=== PATIENT | male | born 1940 | race Caucasian/White ===

== ENCOUNTER 2017-08-27 12:42 | Outpatient (RCR) | payer MEDICARE ==
[2017-06-04 15:44] VITALS: BP 117/75
[2017-06-04 16:46] LABS: PLATELET COUNT, AUTOMATED 393 K/uL (150-450)
--- NOTE | 2017-06-05 11:58 | RADIOLOGY IMAGING REPORT ---
FACILITY: [facility] - [place] PATIENT NAME: Dean Spears : 1940 MR: [id number] V: [id number] EXAM DATE: ORDERING PHYSICIAN: NAMAN KAUR TECHNOLOGIST: Location: [facility] [place] Patient: Dean Spears : 1940 Visit/Account:[id number] Date of Sevice: 06/05/2017 CHEST/AB/PELV W/CONTRAST HISTORY: Pancreatic cancer, Whipple procedure 05/14/2017 ADDITIONAL HISTORY: None. TECHNIQUE: Following administration of IV contrast axial images acquired through the chest abdomen a nd pelvis during the portal venous phase. Coronal and sagittal reformatting was also performed. Dose Lowering Technique One of the following dose optimization techniques was utilized in the performance of this exam: Autom ated exposure control; adjustment of the mA and/or kV according to the patient's size; or use of an i terative reconstruction technique. Specific details can be referenced in the facility's radiology C T exam operational policy. CONTRAST: 75 mL Isovue-[id number] COMPARISON: May 07, 2017 FINDINGS: CHEST: Lungs/Pleura: There is a 4 mm noncalcified nodule in the lateral inferior left upper lobe best seen on image 62 of series 3. Just lateral is a 3 mm noncalcified nodule and just inferiorly there is a 3 mm calcified nodule best seen on image 65. Mediastinum/lymph nodes: Negative. Heart/vessels: There are moderate coronary artery vascular calcifications and moderate calcification s at the aortic arch Bones/soft tissues: There Is a gentle S-shaped scoliosis of the thoracolumbar spine. There are mild spondylotic changes. No aggressive appearing bone lesions are seen ABDOMEN AND PELVIS: Hepatobiliary: There is diffuse hepatic steatosis . There is been a cholecystectomy. Previously n oted biliary ductal dilatation has resolved. Spleen: Negative. Pancreas: There are postsurgical changes from a Whipple procedure. The visualized body and tail the pancreas appears severely atrophic Adrenals: Negative. Kidneys ureters and bladder : Small subcentimeter hypodensity upper pole the right kidney appears sta ble may represent a cyst although is too small to characterize by CT Genitalia: Mild enlargement of the prostate gland impinging upon the floor the urinary bladder GI: There is a surgical anastomosis in the distal sigmoid colon. Moderate amount of fecal material again seen throughout colon which can be seen with constipation. There are postsurgical changes from a Whipple procedure. The gastrojejunal anastomosis appears extre roxi narrowed and is best seen on axial image 131 of series 2. The stomach is very distended with fl uid and particulate material. The second portion duodenum appears thickened as do several proximal j ejunal loops a portion of disconnected tubing is present in the third portion of the duodenum Vessels/spaces/nodes: Moderate vascular calcifications again seen in the abdomen and pelvis. Collat eral vessels surround the stomach and additional collateral vessels are identified in the right upper abdomen anteriorly. Appear to be several small filling defects in the mid to distal branches of the mesenteric vein. Multiple small retroperitoneal lymph nodes are again noted Bones/soft tissues: No aggressive appearing bone lesions are seen Additional findings: None pertinent. IMPRESSION: There are postsurgical changes from a Whipple procedure as described above. The gastrojejunal anasto mosis appears extremely narrowed as described above. The stomach is very distended with fluid and pa rticulate material. There is wall thickening in the second portion duodenum and several proximal jej unal loops which may represent edema. Collateral vessels are seen about the stomach and in the anterior right upper abdomen. There appear to be several small filling defects likely representing thrombi in the mid to distal bra nches of the mesenteric vein Diffuse hepatic steatosis. There are three pulmonary nodules in the left upper lobe measurin up to 4 mm. One of them appears c alcified with two adjacent noncalcified nodules which could represent granulomatous process. Small retroperitoneal lymph nodes appear stableReport Dictated By: Yazmin Newman MD at 06/05/2017 11:31 AM Report E-Signed By: Yazmin Newman MD at 06/05/2017 11:54 AM WSN:[id number]
--- NOTE | 2017-06-06 15:04 | ONCOLOGY FOLLOW UP NOTE ---
EVENT DATE: June 04, 2017 REASON FOR CONSULTATION Pancreatic adenocarcinoma. CHIEF COMPLAINT Fatigue, weight loss, bilateral hip pain. 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 Dean underwent Whipple procedure on May 14, 2017. He reports that the surgery itself went well, all things considered. Before his surgery, he had experienced quite a bit of weight loss, and at this point, it seems that his nutrition has picked up to the point where he can eat just about anything that he wants to, as along as he eats slowly. He reports no fever. He denies significant abdominal pain and nausea. He has had some issues with constipation, but he has been able to control this at home. He has not had any loose stools, melena, or hematochezia. He denies urinary symptoms. He reports that he is starting to get back on his feet in terms of activity level, as he does tend to be active at baseline. He had been visited in the hospital by Dr. Thompson, and she had made recommendations for him to follow up here in [place] and consider adjuvant therapy if deemed appropriate. REVIEW OF SYSTEMS Otherwise negative, and all systems were reviewed. ONCOLOGY HISTORY Stage IIB pancreatic adenocarcinoma. a. Initial presentation with several months of progressive weight loss, fatigue, and change in stool color. He was noted by his PCP to have scleral icterus. Labs were drawn, revealing elevated bilirubin. CT scan at that time showed concern for a pancreatic mass. He was then referred to Dr. Moody for surgical management. b. May 09, 2017: CT of the abdomen and pelvis revealed 2.7 cm poorly defined mid pancreatic head mass, marked dilatation of bile ducts and main pancreatic duct; no CT evidence of vascular encasement or metastatic disease. c. May 09, 2017: Patient undergoes ERCP, sphincterotomy, and bilateral stent placement. Bile duct biopsy performed at that time showed no evidence of malignancy. d. May 10, 2017: CA 19-9 = 445. e. May 10, 2017: CT chest shows calcified granuloma in lingula, as well as an adjacent small cluster of micronodular densities up to 5 mm, felt to be inflammatory. There was no definitive evidence of metastatic disease. f. May 14, 2017: Patient undergoes Whipple procedure and port placement. 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 Perineural invasion was present, but no lymphovascular invasion was noted. Five of 37 lymph nodes were positive for metastatic disease. g. May 02, 2017: Patient is noted to have elevated white blood cell count , and abnormal liver function tests. PAST MEDICAL HISTORY 1. Benign prostatic hyperplasia. 2. Hypertension. PAST SURGICAL HISTORY 1. Whipple procedure, as above. 2. ERCP with stent placement, as above. 3. History of colon surgery. 4. History of eye surgery. 5. History of wisdom tooth extraction. SOCIAL HISTORY The patient is a never smoker. He rarely drinks alcohol. There is no history of illicit drug use. FAMILY HISTORY Noncontributory. VITAL SIGNS Temperature: Patient is afebrile. Blood pressure 117/75, heart rate is 72, respirations 16, oxygen saturation is 96% on room air. Weight is 59.2 kg. PHYSICAL EXAMINATION GENERAL: Patient is alert and oriented times three, in no apparent distress sitting in the exam room chair. He is quite interactive and pleasant. He appears somewhat tired, but nontoxic. His clothes are fitting loosely. HEENT: Exam reveals modestly icteric sclerae. NEUROLOGIC: Exam is grossly nonfocal, and his gait is normal. EXTREMITIES: Exam reveals thin extremities. No clubbing, no cyanosis. SKIN: Exam reveals no concerning rash or lesion. He is not obviously jaundiced , but his skin is somewhat pale. LABORATORY STUDIES [facility]. IMAGING AND PATHOLOGY Please see history of present illness. ASSESSMENT AND PLAN Resected stage IIB pancreatic adenocarcinoma. I had a very good visit with the patient today. We spent time reviewing his oncologic history, as is noted above. Symptomatically, he seems to be doing remarkably well at this point. His appetite has picked up, and he has been able to eat pretty much anything he wants, as long as his pace of eating is slow. Pain is well controlled at this point. He reports that he really does not want anything to do with opioid pain medications, either now or in the future. We spent time discussing the natural history of pancreatic adenocarcinoma. He understands that this is a very aggressive type of cancer, and risk of recurrence is quite high. His surgical margins were negative, but he did have several lymph nodes (five of 37) positive for pancreatic adenocarcinoma. He does intend to receive adjuvant chemotherapy. I do think that adjuvant gemcitabine would be appropriate for him when the time comes. However, he has some short-term issues that need to be addressed before chemotherapy can be considered. I have reviewed his situation with Dr. Moody in Surgery, as he was kind enough to call me prior to my visit with the patient today. There are concerns at this point for an elevated white count, as well as abnormal liver function tests. I have recommended to the patient that he go for an urgent CT scan of the chest, abdomen and pelvis to evaluate these findings further. As discussed, I will be back in touch with Dr. Moody once these results are available. The patient is currently afebrile, and feeling remarkably well. I am not convinced at this point that he has a threatening infection, but I have asked him to call with any fevers. We also discussed the importance of increasing physical activity, as well as seeing a builder beam. He is open-minded to both of these ideas. I would prefer that Dean have short term followup here in the clinic, hopefully in the next week, to be sure that his clinical situation has not deteriorated. The patient had several further questions for me today, I believe I answered all of these questions to his satisfaction. I spent a total of one hour of total care time with the patient today, and 55 minutes of this was spent in direct counseling and coordination of care. BOUCHRA
[2017-06-09 10:37] VITALS: BP 120/75
--- NOTE | 2017-06-09 13:02 | ONC Progress Note - NP.Halsey ---
Patient History Date of Service Jun 09, 2017 Reason For Visit/HPI Dean is a 76-year-old male who has followed with Dr. 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 Patient is seen in the clinic today to review CT scan completed on 06/05/2017. Copy of the scan has been forwarded to Dr. Maya. Patient denies any fever or chills , nausea or vomiting, he is eating much better, several small meals a day. He feels that he is getting stronger. He does report that he continues to have acid reflux and burping. He believes that this is led to his insomnia so he currently is sleeping upright in a chair and avoiding meals 2 hours before bedtime and reports that this is significantly helped. Patient is also on a PPI which she takes in the morning which also has helped his symptoms. Labs were also reviewed today from previous, I requested to have labs redrawn to better monitor his liver function and patient reported that he would do those next week but did not want them drawn today. 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 Alcohol History He denies abuse Smoking Status: Never Smoker Medications and Allergies Active Scripts Finasteride (FINASTERIDE) 5 Mg Tablet, 1 TAB PO QDAY, #90 TAB Prov:PRASHANT PEÑA MD 09/27/14 Reported Medications Pantoprazole Sodium (PANTOPRAZOLE SODIUM) 40 Mg Tablet.dr, 40 DAILY, MG 0 Refills 06/09/17 Multivitamin (MULTI VITAMIN DAILY) 1 Each Tablet, 1 EACH PO 06/04/17 Ergocalciferol (Vitamin D2) (VITAMIN D2) 400 Unit Tablet, 1 TAB PO QDAY 09/09/14 Discontinued Scripts Fluticasone Prop 50 Mcg Ns (FLONASE 50 MCG NS) 16 Gm Henderson.susp, 2 SPRAYS NS QDAY, #1 BOT 3 Refills Prov:JAMEEL KEYES MD 12/12/16 Allergies: Coded Allergies: No Known Drug Allergies (Verified , 07/19/08) Review of System/Physical Exam Review of Systems All Systems Reviewed/Normal: Yes, Except as Noted Constitutional: Positive for Appetite/Weight Change (this is improved, he has several small meals a day. He does get full fast) Gastrointestinal: Heart Burn (currently on Protonix and avoiding meals prior to bedtime along with sitting in a chair to sleep has significantly helped) Physical Exam Vital Signs Temperature: Pulse: 71 BP Systolic: 120 BP Diastolic: 75 Respiratory Rate: 16 O2 SAT: 97 O2 Delivery: Height (inches) Weight lb: Weight oz: Weight Kg (Rex): Pain: 0 ECOG Score: 1 General: Stable, Not Well Developed (he is very thin although appears well developed ) Psychiatric: Mood appears normal, Affect appears normal Diagnostic Studies Diagnostic Studies Laboratory Labs reviewed with patient today Laboratory Tests 06/04/17 16:40 Laboratory Tests 06/04/17 16:40: White Blood Count 9.3, Red Blood Count 3.89, Hemoglobin 12.6, Hematocrit 37.1, Mean Corpuscular Volume 95.3, Mean Corpuscular Hemoglobin 32.2, Mean Corpuscular Hemoglobin Concent 33.8, Red Cell Distribution Width 16.0, Platelet Count 393, Mean Platelet Volume 9.1, Neutrophils (%) (Auto) 85.7, Lymphocytes (% ) (Auto) 8.0, Monocytes (%) (Auto) 5.3, Eosinophils (%) (Auto) 0.5, Basophils (% ) (Auto) 0.5, Nucleated RBC Relative Count (auto) 0.0, Neutrophils # (Auto) 8.0 , Lymphocytes # (Auto) 0.7, Monocytes # (Auto) 0.5, Eosinophils # (Auto) 0.0, Basophils # (Auto) 0.0, Nucleated RBC Absolute Count (auto) 0.00, Sodium Level 133, Potassium Level 3.7, Chloride Level 100, Carbon Dioxide Level 25, Blood Urea Nitrogen 13, Creatinine 0.60, Glomerular Filtration Rate Calc > 60.0, Random Glucose 108, Calcium Level 8.1, Total Bilirubin 1.7, Aspartate Amino Transf (AST/SGOT) 80, Alanine Aminotransferase (ALT/SGPT) 126, Alkaline Phosphatase 779, Total Protein 5.6, Albumin 2.8 Assessment and Plan Assessment & Plan Resected stage IIB pancreatic adenocarcinoma. CT chest abdomen and pelvis reviewed with patient today. CT shows postsurgical changes from Whipple procedure, anastomosis appears extremely narrowed, stomach was very distended with fluid and particulate material area and there is wall thickening in the 2nd portion of the duodenum possibly representing edema. There are 3 pulmonary nodules in the left upper lobe measuring up to 4 mm, one calcified 2 noncalcified. We will continue to monitor these. There is no evidence of metastatic disease in other areas. Labs reviewed with patient on 06/04/2017. AST ALT and bilirubin are elevated. I encouraged patient to have labs redrawn today for further evaluation, however he said that he had difficulty with needles and that he would rather draw labs next week prior to his follow-up visit with Dr. Maya. I agreed to this plan of care. Dr. Maya has reviewed the CT scan. Patient will continue on PPI, elevation of the chair to decrease gastric reflux. Insomnia has improved due to this. Patient will continue to try to increase foods and gain weight. We did discuss chemotherapy with single agent Gemzar. Patient will need a port access. Overall he is feeling fairly well. 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 Patient will follow with Dr. Maya next week with CBC CMP drawn prior and to discuss plan of care. I personally spent a total of 20 minutes. Of that 20 minutes was counseling/ coordination of patient's care. See my note above for details. Copies to: JAMEEL KEYES MD, NANCY J BUMPER OPERATOR-BC, ONC Jun 09, 2017 13:02
[2017-06-16 10:10] LABS: PLATELET COUNT, AUTOMATED 425 K/uL (150-450)
[2017-06-18 08:10] VITALS: BP 119/73
--- NOTE | 2017-06-23 09:26 | ONC Progress Note - NP.Halsey ---
Patient History Date of Service Jun 23, 2017 Reason For Visit/HPI Rosalee is a 76-year-old male who has followed with Dr. 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 Patient is seen today for education regarding chemotherapy with gemcitabine given on day 1, 8, and 15 every 28 days 6 cycles. Patient is scheduled to start later this week. His is with him today. Patient is seen with physical therapy and psychotherapist social worker. Oncology History Stage IIB pancreatic adenocarcinoma. a. Initial presentation with several months of progressive weight loss, fatigue, and change in stool color. He was noted by his PCP to have scleral icterus. Labs were drawn, revealing elevated bilirubin. CT scan at that time showed concern for a pancreatic mass. He was then referred to Dr. Moody for surgical management. b. May 09, 2017: CT of the abdomen and pelvis revealed 2.7 cm poorly defined mid pancreatic head mass, marked dilatation of bile ducts and main pancreatic duct; no CT evidence of vascular encasement or metastatic disease. c. May 09, 2017: Patient undergoes ERCP, sphincterotomy, and bilateral stent placement. Bile duct biopsy performed at that time showed no evidence of malignancy. d. May 10, 2017: CA 19-9 = 445. e. May 10, 2017: CT chest shows calcified granuloma in lingula, as well as an adjacent small cluster of micronodular densities up to 5 mm, felt to be inflammatory. There was no definitive evidence of metastatic disease. f. May 14, 2017: Patient undergoes Whipple procedure and port placement. 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 Perineural invasion was present, but no lymphovascular invasion was noted. Five of 37 lymph nodes were positive for metastatic disease. g. May 02, 2017: Patient is noted to have elevated white blood cell count , and abnormal liver function tests. h. Education for gemcitabine to start this week with a regimen administered on day 1, 8, and 15 every 28 days 6 cycles. 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 Alcohol History He denies abuse Smoking Status: Never Smoker Medications and Allergies Active Scripts Ondansetron (ZOFRAN ODT) 8 Mg Tab.rapdis, 8 MG PO Q8H, #30 TAB 1 Refill Prov:GREGORY LEW FORESTRY LABORER-BC, ONC 06/23/17 Docusate Sodium (DOCUSATE SODIUM) 100 Mg Tablet, 1 TAB PO BID, #30 TAB 0 Refills Prov:ROSALEE WONG MD 06/20/17 Oxycodone Hcl/Acetaminophen (OXYCODONE-ACETAMINOPHEN 5-325) 1 Each Tablet, 1-2 TAB PO Q4H Y for PAIN, #30 TAB 0 Refills Prov:ROSALEE WONG MD 06/20/17 Finasteride (FINASTERIDE) 5 Mg Tablet, 1 TAB PO QDAY, #90 TAB Prov:PRASHANT PEÑA MD 09/27/14 Reported Medications Calcium Carbonate (CALCIUM) 600 Mg Tablet, 600 MG PO QDAY 06/18/17 Pantoprazole Sodium (PANTOPRAZOLE SODIUM) 40 Mg Tablet.dr, 40 DAILY, MG 0 Refills 06/09/17 Multivitamin (MULTI VITAMIN DAILY) 1 Each Tablet, 1 EACH PO 06/04/17 Ergocalciferol (Vitamin D2) (VITAMIN D2) 400 Unit Tablet, 2 TAB PO QDAY 09/09/14 Allergies: Coded Allergies: No Known Drug Allergies (Verified , 07/19/08) Review of System/Physical Exam Review of Systems All Systems Reviewed/Normal: Yes, Except as Noted Constitutional: Positive for Appetite/Weight Change (Weight loss noted but patient reports he is eating well and tolerating all foods. ) Gastrointestinal: Diarrhea (occasionally and stool is often pasty in color) Hematologic: Positive for Fatigue (mild) Musculoskeletal: Positive for Muscle Pain, Positive for Joint Pain, Positive for Bone Pain (hips, thigh and back- age related arthiritis) Physical Exam Vital Signs Temperature: 97.2 Pulse: 68 BP Systolic: 119 BP Diastolic: 73 Respiratory Rate: 16 O2 SAT: 96 O2 Delivery: Height (inches) Weight lb: Weight oz: Weight Kg (Rex): Pain: 0 ECOG Score: 1 General: Stable, Well Developed, Not Well Nourished (Patient is very thin and appears malnurished.), Not In Acute Distress Psychiatric: Mood appears normal, Affect appears normal Chemo Education Chemotherapy Education: Patient is seen today for education regarding chemotherapy with gemcitabine for his pancreatic cancer. The treatment schedule and associated appointments were discussed and reviewed. A print out will be given to the patient. The intent for treatment is unknown at this time. Consent for treatment was completed prior to receiving treatment. Mechanism of action and associated side effects of Gemcitabine and premedications were discussed. The patient is at increased risk for infection related to bone marrow suppression with chemotherapy. Signs and symptoms of infection were reviewed with recommendation of calling the clinic if fever, chills or a temperature of 100.5 or greater is experienced. Regular monitoring of blood work will be completed. The patient is at increased risk of nausea and vomiting related to chemotherapy. Home antiemetics were reviewed with a schedule of when to take them. Script (s) for Zofran was sent to his pharmacy with explanation to take every 8 hours as needed for nausea post chemotherapy. Increased bowel movements or diarrhea may occur. The use of Imodium was reviewed and encouraged to have on hand. Dehydration from decreased intake, nausea or diarrhea could also occur. Side effects of dehydration were reviewed and hydration will be given as needed. Self-care strategies to minimize any symptoms from treatment were taught and written material was given for further review at home. The strategies included: dietary modifications for nausea, diarrhea, fatigue and/or mouth sores, exercise and resting for fatigue, hydration for dehydration, and skin care for dry skin reactions. In addition, safety measures for IV chemotherapy to prevent teratogenic side effects to others was reviewed in detail to include good hand washing, double flushing, in the 72 hour period post treatment. Patient is not sexually active at this time due to prostate hypertrophy. His is with him today. Diagnostic Studies Diagnostic Studies Laboratory Laboratory Tests 06/16/17 10:00 Laboratory Tests 06/16/17 10:00: White Blood Count 7.5, Red Blood Count 4.21, Hemoglobin 13.8, Hematocrit 40.6, Mean Corpuscular Volume 96.5, Mean Corpuscular Hemoglobin 32.7, Mean Corpuscular Hemoglobin Concent 34.0, Red Cell Distribution Width 17.3, Platelet Count 425, Mean Platelet Volume 8.7, Neutrophils (%) (Auto) 82.0, Lymphocytes (% ) (Auto) 9.5, Monocytes (%) (Auto) 7.0, Eosinophils (%) (Auto) 0.5, Basophils (% ) (Auto) 1.0, Nucleated RBC Relative Count (auto) 0.0, Neutrophils # (Auto) 6.1 , Lymphocytes # (Auto) 0.7, Monocytes # (Auto) 0.5, Eosinophils # (Auto) 0.0, Basophils # (Auto) 0.1, Nucleated RBC Absolute Count (auto) 0.00, Sodium Level 137, Potassium Level 4.0, Chloride Level 101, Carbon Dioxide Level 30, Blood Urea Nitrogen 12, Creatinine 0.60, Glomerular Filtration Rate Calc > 60.0, Random Glucose 86, Calcium Level 8.4, Total Bilirubin 0.9, Aspartate Amino Transf (AST/SGOT) 45, Alanine Aminotransferase (ALT/SGPT) 75, Alkaline Phosphatase 355, Total Protein 6.0, Albumin 2.9 Assessment and Plan Assessment & Plan Resected stage IIB pancreatic adenocarcinoma. CT chest abdomen and pelvis completed as baseline. CT shows postsurgical changes from Whipple procedure, anastomosis appears extremely narrowed, stomach was very distended with fluid and particulate material area and there is wall thickening in the 2nd portion of the duodenum possibly representing edema. There are 3 pulmonary nodules in the left upper lobe measuring up to 4 mm, one calcified 2 noncalcified. We will continue to monitor these. There is no evidence of metastatic disease in other areas. Labs reviewed with patient on 06/04/2017. AST ALT and bilirubin were elevated. Education and consent signed today prior to treatment. Patient was assessed by PT. He is feeling well and able to increase calories in his diet. He is not gaining weight but will continue to try. Patient will start chemotherapy with gemcitabine given on day 1, 8, and 15 every 28 days 6 cycles. Education was completed and a consent was signed. Zofran was sent to pharmacy today. I personally spent a total of 40 minutes. Of that 40 minutes was counseling/ coordination of patient's care. See my note above for details. GREGORY LEW FORESTRY LABORER-BC, ONC Jun 23, 2017 09:26
[2017-06-25 11:32] VITALS: BP 134/74
[2017-06-25] MEDS: DEXAMETHASONE SOD PHOS 10MG/ML IVP PRN (11:52)
[2017-06-25] MEDS: NS(*) 0.9% 100 ML BAG 100 ML IVPB PRN (12:00)
[2017-06-25 13:31] VITALS: BP 132/68
--- NOTE | 2017-06-27 09:39 | ONCOLOGY FOLLOW UP NOTE ---
EVENT DATE: June 18, 2017 REASON FOR FOLLOWUP Pancreatic adenocarcinoma, stage II, status post Whipple. CHIEF COMPLAINT Insomnia. INTERIM HISTORY Dean is here with his today. He reports that he has been doing fairly well , all things considered, since our last visit. He reports no pain or fever. He has had no significant nausea, and no change in bowel habits. He has noticed no yellowing of the eyes or skin. He has an excellent appetite, but he continues to eat a somewhat modified diet, with small, fairly frequent portions. He reports that his activity level has been pretty good, but his is quite concerned that he is getting minimal exercise at home. He reports no shortness of breath, productive cough, or chest pain. His energy level has improved somewhat. He states that he is quite enthusiastic to receive chemotherapy if this is indeed going to be possible. Since our last visit, he did have a CT scan performed to evaluate for abnormal liver function tests status post Whipple. REVIEW OF SYSTEMS Otherwise negative with the exception of insomnia. ONCOLOGY HISTORY Stage IIB pancreatic adenocarcinoma. a. Initial presentation with several months of progressive weight loss, fatigue, and change in stool color. He was noted by his PCP to have scleral icterus. Labs were drawn, revealing elevated bilirubin. CT scan at that time showed concern for a pancreatic mass. He was then referred to Dr. Moody for surgical management. b. May 09, 2017: CT of the abdomen and pelvis revealed 2.7 cm poorly defined mid pancreatic head mass, marked dilatation of bile ducts and main pancreatic duct; no CT evidence of vascular encasement or metastatic disease. c. May 09, 2017: Patient undergoes ERCP, sphincterotomy, and bilateral stent placement. Bile duct biopsy performed at that time showed no evidence of malignancy. d. May 10, 2017: CA 19-9 = 445. e. May 10, 2017: CT chest shows calcified granuloma in lingula, as well as an adjacent small cluster of micronodular densities up to 5 mm, felt to be inflammatory. There was no definitive evidence of metastatic disease. f. May 14, 2017: Patient undergoes Whipple procedure and port placement. 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 Perineural invasion was present, but no lymphovascular invasion was noted. Five of 37 lymph nodes were positive for metastatic disease. g. May 02, 2017: Patient is noted to have elevated white blood cell count , and abnormal liver function tests. h. June 05, 2017: CT chest, abdomen and pelvis: Post surgical changes from Whipple procedure. Anastomosis is narrowed; stomach is very distended with fluid and particulate material. There is some edema of proximal small bowel loops. There appear to be several small filling defects likely representing thrombi in the mid to distal branches of the mesenteric vein. Diffuse hepatic steatosis is present. Three pulmonary nodules in the left upper lobe measuring up to 4 mm. One of these is calcified, two adjacent noncalcified nodules could represent granulomatous disease. PAST MEDICAL HISTORY 1. Benign prostatic hyperplasia. 2. Hypertension. PAST SURGICAL HISTORY 1. Whipple procedure, as above. 2. ERCP with stent placement, as above. 3. History of colon surgery. 4. History of eye surgery. 5. History of wisdom tooth extraction. SOCIAL HISTORY The patient is a never smoker. He rarely drinks alcohol. There is no history of illicit drug use. FAMILY HISTORY Noncontributory. CURRENT MEDICATIONS 1. Protonix. 2. Multivitamin. 3. Finasteride. 4. Vitamin D2. ALLERGIES No known drug allergies. VITAL SIGNS Temperature 97.2, blood pressure 119/73, heart rate is 68, respirations 16, oxygen saturation is 96% on room air. Weight is 56.2 kg. PHYSICAL EXAMINATION GENERAL: Patient is alert and oriented times three, in no apparent distress, sitting in the exam room chair. He is quite interactive, talkative, and pleasant. HEENT: Exam reveals anicteric sclerae. NEUROLOGIC: Exam is grossly nonfocal and his gait is somewhat slow, but stable. SKIN: Exam reveals no concerning rash or lesion. EXTREMITIES: Exam reveals no edema, clubbing or cyanosis. LAB[facility] IMAGING Please see oncology history. ASSESSMENT AND PLAN Stage IIB pancreatic adenocarcinoma, status post Whipple. Dean continues to do quite well symptomatically in the postoperative setting. He has no concerning abdominal symptoms, no fever, he is eating pretty well, and his LFTs are improving. We spent time reviewing the findings of his recent CT scan, as well as his labs. We moved on to discuss the merits of consideration for adjuvant chemotherapy, taking into account comorbidities and his age. We discussed gemcitabine monotherapy for six months as a standard option for him to reduce risk of recurrence and hopefully prolong overall survival. He does understand his risk of recurrence of pancreatic cancer is substantial. We discussed common side effects and risks with gemcitabine. He is quite interested, and he would like to sit down for chemotherapy education as soon as possible. This will be arranged. We will arrange for him to receive gemcitabine at a dose of 1000 mg/m2 to be given on days 1, 8, and 15 of 28-day cycles. He will have close followup here as he initiates adjuvant therapy. A recheck of his liver function tests will occur per his chemotherapy protocol. I will plan to see him back for followup during my [place] [facility] [place] The patient and his had several further questions for me today, and I believe I answered all of their questions to their satisfaction. I spent a total of 30 minutes of time face to face with the patient today, and 25 minutes of this was spent in direct counseling, coordination of care. BOUCHRA
[2017-07-02 10:45] VITALS: BP 130/78
[2017-07-02] MEDS: NS(*) 0.9% 500 ML BAG 500 ML IV PRN (10:45)
[2017-07-02 11:16] LABS: PLATELET COUNT, AUTOMATED 221 K/uL (150-450)
[2017-07-02] MEDS: DEXAMETHASONE SOD PHOS 10MG/ML IVP PRN (11:39)
[2017-07-02] MEDS: HEPARIN FLSH (PORT) 500 UN/5ML IVP PRN (13:00)
[2017-07-02 13:10] VITALS: BP 134/76
[2017-07-09 11:34] VITALS: BP 116/71
[2017-07-09] MEDS: DEXAMETHASONE SOD PHOS 10MG/ML IVP PRN (11:57)
[2017-07-09] MEDS: NS(*) 0.9% 500 ML BAG 500 ML IV PRN (11:58)
[2017-07-09 13:30] VITALS: BP 120/72
[2017-07-09 13:34] VITALS: BP 130/86
[2017-07-09] MEDS: HEPARIN FLSH (PORT) 500 UN/5ML IVP PRN (15:57)
--- NOTE | 2017-07-12 05:47 | ONCOLOGY FOLLOW UP NOTE ---
EVENT DATE: July 02, 2017 REASON FOR FOLLOWUP Stage II pancreatic adenocarcinoma, status post Whipple. CHIEF COMPLAINT Loose stools. INTERIM HISTORY Dean reports that he is feeling pretty good today for the most part. Since our last visit, he has had ongoing issues with loose stools. He reports that he has had multiple bowel movements a day, and that he has had to get up at night to have bowel movements as well. He has had several "accidents." He has noticed no blood in his stools, but they are light colored. His stools are not watery, just soft. He reports no fever. He has had no nausea. His appetite is actually quite good, and he is able to eat whatever he wants. He reports no fever. He has had no shortness of breath, chest pain or cough. He has had no new urinary symptoms. REVIEW OF SYSTEMS Otherwise negative, and his sleep patterns have improved. ONCOLOGY HISTORY Stage IIB pancreatic adenocarcinoma. a. Initial presentation with several months of progressive weight loss, fatigue, and change in stool color. He was noted by his PCP to have scleral icterus. Labs were drawn, revealing elevated bilirubin. CT scan at that time showed concern for a pancreatic mass. He was then referred to Dr. Moody for surgical management. b. May 09, 2017: CT of the abdomen and pelvis revealed 2.7 cm poorly defined mid pancreatic head mass, marked dilatation of bile ducts and main pancreatic duct; no CT evidence of vascular encasement or metastatic disease. c. May 09, 2017: Patient undergoes ERCP, sphincterotomy, and bilateral stent placement. Bile duct biopsy performed at that time showed no evidence of malignancy. d. May 10, 2017: CA 19-9 = 445. e. May 10, 2017: CT chest shows calcified granuloma in lingula, as well as an adjacent small cluster of micronodular densities up to 5 mm, felt to be inflammatory. There was no definitive evidence of metastatic disease. f. May 14, 2017: Patient undergoes Whipple procedure and port placement. 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 Perineural invasion was present, but no lymphovascular invasion was noted. Five of 37 lymph nodes were positive for metastatic disease. g. May 02, 2017: Patient is noted to have elevated white blood cell count , and abnormal liver function tests. h. June 05, 2017: CT chest, abdomen and pelvis: Post surgical changes from Whipple procedure. Anastomosis is narrowed; stomach is very distended with fluid and particulate material. There is some edema of proximal small bowel loops. There appear to be several small filling defects likely representing thrombi in the mid to distal branches of the mesenteric vein. Diffuse hepatic steatosis is present. Three pulmonary nodules in the left upper lobe measuring up to 4 mm. One of these is calcified, two adjacent noncalcified nodules could represent granulomatous disease. i. June 2017: Initiation of adjuvant gemcitabine chemotherapy PAST MEDICAL HISTORY 1. Benign prostatic hyperplasia. 2. Hypertension. PAST SURGICAL HISTORY 1. Whipple procedure, as above. 2. ERCP with stent placement, as above. 3. History of colon surgery. 4. History of eye surgery. 5. History of wisdom tooth extraction. SOCIAL HISTORY The patient is a never smoker. He rarely drinks alcohol. There is no history of illicit drug use. FAMILY HISTORY Noncontributory. CURRENT MEDICATIONS 1. Protonix. 2. Multivitamin. 3. Finasteride. 4. Vitamin D2. ALLERGIES No known drug allergies. VITAL SIGNS Temperature is 97.3, blood pressure 130/70, heart rate is 61, respirations 18, oxygen saturation is 91% on room air. PHYSICAL EXAMINATION GENERAL: Patient is alert and oriented times three, in no apparent distress, sitting in the infusion chair. He is interactive and quite pleasant. He is very thin. HEENT: Exam reveals anicteric sclerae. NEUROLOGIC: Exam is grossly nonfocal. EXTREMITIES: Exam reveals some edema of the bilateral lower extremities, but no clubbing or cyanosis. SKIN: Exam reveals some scattered erythematous macules over the lower extremities. LABORATORY STUDIES Reviewed per the [facility] record. Today's labs are currently pending. IMAGING None today. ASSESSMENT AND PLAN Pancreatic adenocarcinoma. Dean has initiated adjuvant gemcitabine chemotherapy , and he seems to be tolerating it quite well to date. He has had minimal toxicity. He is having loose stools, however, and this has become quite problematic. This is new over the past few weeks, and I do think he needs to sit down with the PharmD today to discuss pancreatic enzymes. We discussed the use of these enzymes in detail. He has no infectious symptoms. I would like for him to follow up in about a week with Rea Fischer, nurse practitioner, here in the clinic to see how things are coming along with his bowel habits. We will continue with gemzar chemotherapy per protocol, pending the results of today labs. MTDD
[2017-07-16 09:29] VITALS: BP 132/65
[2017-07-16 09:47] LABS: PLATELET COUNT, AUTOMATED 242 K/uL (150-450)
[2017-07-23 10:48] VITALS: BP 121/79
[2017-07-23] MEDS: HEPARIN FLSH (PORT) 500 UN/5ML IVP PRN (10:50)
[2017-07-23] MEDS: NS(*) 0.9% 500 ML BAG 500 ML IV PRN (10:51)
[2017-07-23 11:00] LABS: PLATELET COUNT, AUTOMATED 613 K/uL (150-450)
[2017-07-23] MEDS: DEXAMETHASONE SOD PHOS 10MG/ML IVP PRN (11:49)
--- NOTE | 2017-07-23 13:44 | ONC Progress Note - NP.Halsey ---
Patient History Date of Service Jul 23, 2017 Reason For Visit/HPI Rosalee is a 76-year-old male who has followed with Dr. 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 He is scheduled to receive gemcitabine today which is given on day 1, 8, and 15 every 28 days 6 cycles. He reports that he tolerated his 1st treatment without difficulty. He continues to use pancreatic enzymes reports that his bowel movements are brown and normal. If he does not use the pancreatic enzymes his bowel movement is more virgen colored and pasty. Patient previously had lower extremity edema and shares that after his 1st cycle this is resolved. He did wear compression stockings which provided support. He feels that he had gained approximately 10 pounds of water weight and now has lost 10 pounds. He is not on any diuretic. Oncology History Stage IIB pancreatic adenocarcinoma. a. Initial presentation with several months of progressive weight loss, fatigue, and change in stool color. He was noted by his PCP to have scleral icterus. Labs were drawn, revealing elevated bilirubin. CT scan at that time showed concern for a pancreatic mass. He was then referred to Dr. Moody for surgical management. b. May 09, 2017: CT of the abdomen and pelvis revealed 2.7 cm poorly defined mid pancreatic head mass, marked dilatation of bile ducts and main pancreatic duct; no CT evidence of vascular encasement or metastatic disease. c. May 09, 2017: Patient undergoes ERCP, sphincterotomy, and bilateral stent placement. Bile duct biopsy performed at that time showed no evidence of malignancy. d. May 10, 2017: CA 19-9 = 445. e. May 10, 2017: CT chest shows calcified granuloma in lingula, as well as an adjacent small cluster of micronodular densities up to 5 mm, felt to be inflammatory. There was no definitive evidence of metastatic disease. f. May 14, 2017: Patient undergoes Whipple procedure and port placement. 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 Perineural invasion was present, but no lymphovascular invasion was noted. Five of 37 lymph nodes were positive for metastatic disease. g. May 02, 2017: Patient is noted to have elevated white blood cell count , and abnormal liver function tests. h. Gemcitabine regimen administered on day 1, 8, and 15 every 28 days 6 cycles started on 07-16-17. 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 Alcohol History He denies abuse Smoking History: No Smoking Status: Never Smoker Medications and Allergies Active Scripts Ondansetron (ZOFRAN ODT) 8 Mg Tab.rapdis, 8 MG PO Q8H, #30 TAB 1 Refill Prov:GREGORY LEW [employer] OPERATIONS SUPERINTENDENT-BC, ONC 06/23/17 Docusate Sodium (DOCUSATE SODIUM) 100 Mg Tablet, 1 TAB PO BID, #30 TAB 0 Refills Prov:ROSALEE WONG MD 06/20/17 Oxycodone Hcl/Acetaminophen (OXYCODONE-ACETAMINOPHEN 5-325) 1 Each Tablet, 1-2 TAB PO Q4H Y for PAIN, #30 TAB 0 Refills Prov:ROSALEE WOGN MD 06/20/17 Finasteride (FINASTERIDE) 5 Mg Tablet, 1 TAB PO QDAY, #90 TAB Prov:PRASHANT PEÑA MD 09/27/14 Reported Medications Lipase/Protease/Amylase (CREON DR 12,000 UNITS CAPSULE) 1 Each Capsule., 1 EACH PO DIRECTED 07/02/17 Calcium Carbonate (CALCIUM) 600 Mg Tablet, 600 MG PO QDAY 06/18/17 Pantoprazole Sodium (PANTOPRAZOLE SODIUM) 40 Mg Tablet., 40 DAILY, MG 0 Refills 06/09/17 Multivitamin (MULTI VITAMIN DAILY) 1 Each Tablet, 1 EACH PO 06/04/17 Ergocalciferol (Vitamin D2) (VITAMIN D2) 400 Unit Tablet, 2 TAB PO QDAY 09/09/14 Allergies: Coded Allergies: No Known Drug Allergies (Verified , 07/19/08) Review of System/Physical Exam Review of Systems All Systems Reviewed/Normal: Yes, Except as Noted Hematologic: Positive for Fatigue, Positive for Weakness Physical Exam Vital Signs Temperature: 97.0 Pulse: 68 BP Systolic: 121 BP Diastolic: 79 Respiratory Rate: 16 O2 SAT: 95 O2 Delivery: Height (inches) 72.00 Weight lb: 119 Weight oz: Weight Kg (Rex): [id number] Pain: 0 ECOG Score: 1 General: Stable, Well Developed, Well Nourished (patient is very thin), Not In Acute Distress, Other (He reports eating well and using a supplement protein drink) HEENT: No Trauma, No Conjunctivitis, No Icterus, No Oral Thrush Neck: Supple Lungs: Clear to Auscultation Heart: Regular Rate, Regular Rhythm, No Gallops Abdomen: Soft and Nontender, No Hepatosplenomegaly, No Masses Extremities: No Cyanosis, No Clubbing, No Edema Lymphadenopathy: No Cervical Psychiatric: Mood appears normal, Affect appears normal Skin: No Skin Rashes, No Bruising, No Purpura Diagnostic Studies Diagnostic Studies Laboratory white count is elevated, UA was completed today and was negative. Patient denies any fever or chills. Laboratory Tests 07/23/17 10:50 Laboratory Tests 07/16/17 09:30: Neutrophils % (Manual) 66, Band Neutrophils % 1, Lymphocytes % (Manual) 20, Monocytes % (Manual) 9, Eosinophils % (Manual) 0, Basophils % (Manual) 0, Metamyelocytes % 3, Myelocytes % 1, Anisocytosis 1+ 07/23/17 10:50: White Blood Count 13.7, Red Blood Count 4.31, Hemoglobin 13.7, Hematocrit 41.0, Mean Corpuscular Volume 95.2, Mean Corpuscular Hemoglobin 31.7, Mean Corpuscular Hemoglobin Concent 33.3, Red Cell Distribution Width 16.0, Platelet Count 613, Mean Platelet Volume 7.9, Neutrophils (%) (Auto) 86.1, Lymphocytes (% ) (Auto) 4.6, Monocytes (%) (Auto) 8.4, Eosinophils (%) (Auto) 0.4, Basophils (% ) (Auto) 0.5, Nucleated RBC Relative Count (auto) 0.0, Neutrophils # (Auto) 11.8 , Lymphocytes # (Auto) 0.6, Monocytes # (Auto) 1.2, Eosinophils # (Auto) 0.0, Basophils # (Auto) 0.1, Nucleated RBC Absolute Count (auto) 0.00, Peripheral Blood Smear Yes, Sodium Level 136, Potassium Level 4.7, Chloride Level 104, Carbon Dioxide Level 26, Blood Urea Nitrogen 12, Creatinine 0.60, Glomerular Filtration Rate Calc > 60.0, Random Glucose 94, Calcium Level 8.5, Total Bilirubin 0.3, Aspartate Amino Transf (AST/SGOT) 44, Alanine Aminotransferase ( ALT/SGPT) 55, Alkaline Phosphatase 113, Total Protein 6.4, Albumin 3.1 07/23/17 13:15: Assessment and Plan Assessment & Plan Resected stage IIB pancreatic adenocarcinoma. CT chest abdomen and pelvis completed as baseline. CT shows postsurgical changes from Whipple procedure, anastomosis appears extremely narrowed, stomach was very distended with fluid and particulate material area and there is wall thickening in the 2nd portion of the duodenum possibly representing edema. There are 3 pulmonary nodules in the left upper lobe measuring up to 4 mm, one calcified 2 noncalcified. We will continue to monitor these. There is no evidence of metastatic disease in other areas. Previous lower extremity edema has resolved with a 10 pound weight loss thought to be all water weight. Patient is eating well and tolerating treatment without side effects or difficulty. Will receive cycle 1 day 8 today. Patient will follow with provider with each treatment. Elevated white cell count at 13.7, platelet count 613. UA was negative, patient without fever or chills and is completely asymptomatic. We will continue to monitor. I personally spent a total of 20 minutes. Of that 20 minutes was counseling/ coordination of patient's care. See my note above for details. GREGORY LEW [employer] OPER[employer] SUPERINTENDENT-BC, ONC Jul 23, 2017 13:43
[2017-07-30] MEDS: NS(*) 0.9% 100 ML BAG 100 ML IVPB PRN (11:18)
[2017-07-30] MEDS: DEXAMETHASONE SOD PHOS 10MG/ML IVP PRN (11:49)
[2017-07-30 12:21] VITALS: BP 123/78
[2017-07-30] MEDS: HEPARIN FLSH (PORT) 500 UN/5ML IVP PRN (13:02)
--- NOTE | 2017-07-30 21:57 | ONCOLOGY FOLLOW UP NOTE ---
EVENT DATE: July 30, 2017 REASON FOR FOLLOWUP Stage II pancreatic adenocarcinoma, status post Whipple. CHIEF COMPLAINT Fatigue. INTERIM HISTORY Dean reports that for the most part he has been doing pretty well with ongoing adjuvant gemcitabine chemotherapy. He is here to receive cycle two day eight. He reports some ongoing and expected fatigue, but this has been quite tolerable. He is staying quite active. He reports no fever. His appetite is good, and his weight has been stable. He has had much less in the way of loose stools since using his pancreatic enzymes. He has had no shortness of breath, chest pain, productive cough. He reports no new urinary symptoms, but he is up multiple times a night to urinate. REVIEW OF SYSTEMS Otherwise negative, and all systems were reviewed. ONCOLOGY HISTORY Stage IIB pancreatic adenocarcinoma. a. Initial presentation with several months of progressive weight loss, fatigue, and change in stool color. He was noted by his PCP to have scleral icterus. Labs were drawn, revealing elevated bilirubin. CT scan at that time showed concern for a pancreatic mass. He was then referred to Dr. Moody for surgical management. b. May 09, 2017: CT of the abdomen and pelvis revealed 2.7 cm poorly defined mid pancreatic head mass, marked dilatation of bile ducts and main pancreatic duct; no CT evidence of vascular encasement or metastatic disease. c. May 09, 2017: Patient undergoes ERCP, sphincterotomy, and bilateral stent placement. Bile duct biopsy performed at that time showed no evidence of malignancy. d. May 10, 2017: CA 19-9 = 445. e. May 10, 2017: CT chest shows calcified granuloma in lingula, as well as an adjacent small cluster of micronodular densities up to 5 mm, felt to be inflammatory. There was no definitive evidence of metastatic disease. f. May 14, 2017: Patient undergoes Whipple procedure and port placement. 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 Perineural invasion was present, but no lymphovascular invasion was noted. Five of 37 lymph nodes were positive for metastatic disease. g. May 02, 2017: Patient is noted to have elevated white blood cell count , and abnormal liver function tests. h. June 05, 2017: CT chest, abdomen and pelvis: Post surgical changes from Whipple procedure. Anastomosis is narrowed; stomach is very distended with fluid and particulate material. There is some edema of proximal small bowel loops. There appear to be several small filling defects likely representing thrombi in the mid to distal branches of the mesenteric vein. Diffuse hepatic steatosis is present. Three pulmonary nodules in the left upper lobe measuring up to 4 mm. One of these is calcified, two adjacent noncalcified nodules could represent granulomatous disease. i. June 2017: Initiation of adjuvant gemcitabine chemotherapy PAST MEDICAL HISTORY 1. Benign prostatic hyperplasia. 2. Hypertension. PAST SURGICAL HISTORY 1. Whipple procedure, as above. 2. ERCP with stent placement, as above. 3. History of colon surgery. 4. History of eye surgery. 5. History of wisdom tooth extraction. SOCIAL HISTORY The patient is a never smoker. He rarely drinks alcohol. There is no history of illicit drug use. FAMILY HISTORY Noncontributory. CURRENT MEDICATIONS 1. Zofran p.r.n. 2. Docusate p.r.n. 3. Percocet. 4. Finasteride. 5. Pancreatic enzymes. 6. Calcium carbonate. 7. Pantoprazole. 8. Multivitamin. 9. Vitamin D2. ALLERGIES No known drug allergies. VITAL SIGNS Temperature is 98.0, blood pressure 123/78, heart rate is 71, respirations 16, oxygen saturation is 93% on room air. Weight is 57.7 kg. PHYSICAL EXAMINATION GENERAL: Patient is alert and oriented times three, in no apparent distress, sitting in the infusion chair. He is good spirits and quite interactive. He is very thin. HEENT: Exam reveals anicteric sclerae. NEUROLOGIC: Exam is grossly nonfocal and his gait is normal. EXTREMITIES: Exam reveals some edema, clubbing or cyanosis. SKIN: Exam reveals no concerning rash or lesion. LABORATORY STUDIES Reviewed per the [facility] record. ASSESSMENT AND PLAN Stage II pancreatic adenocarcinoma. Dean continues to do remarkably well with adjuvant chemotherapy. His toxicity to date has been quite modest. He is doing better in terms of his bowel habits due to the regular use of pancreatic enzymes. These have been somewhat expensive, however. We will plan for him to move forward with adjuvant gemcitabine per protocol without alteration. He did have questions about some of his medical bills today, and we have forwarded this information to the appropriate parties. I will plan not see him back during my next visit to [facility]. He will have followup with Rea on his next treatment day in one week. MTDD
[2017-08-06 11:19] VITALS: BP 111/77
[2017-08-06 11:38] LABS: PLATELET COUNT, AUTOMATED 169 K/uL (150-450)
[2017-08-06] MEDS: DEXAMETHASONE SOD PHOS 10MG/ML IVP PRN (11:54)
[2017-08-06] MEDS: NS(*) 0.9% 500 ML BAG 500 ML IV PRN (11:54)
[2017-08-06] MEDS: HEPARIN FLSH (PORT) 500 UN/5ML IVP PRN (11:57)
--- NOTE | 2017-08-06 12:40 | ONC Progress Note - NP.Halsey ---
Patient History Date of Service Aug 06, 2017 Reason For Visit/HPI Rosalee is a 76-year-old male who has followed with Dr. 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 He is currently recieiving gemcitabine on days 1, 8, and 15 every 28 days 6 cycles. He will recieve cycle 2 day 15 today. He continues to deny any side effects with treatment. He continues to use pancreatic enzymes reports that his bowel movements are brown and normal. His tumor marker is stable at 23. Problem List (1) Enlarged prostate with lower urinary tract symptoms (LUTS) (2) Adenocarcinoma of pancreas, stage 2 Oncology History Stage IIB pancreatic adenocarcinoma. a. Initial presentation with several months of progressive weight loss, fatigue, and change in stool color. He was noted by his PCP to have scleral icterus. Labs were drawn, revealing elevated bilirubin. CT scan at that time showed concern for a pancreatic mass. He was then referred to Dr. Moody for surgical management. b. May 09, 2017: CT of the abdomen and pelvis revealed 2.7 cm poorly defined mid pancreatic head mass, marked dilatation of bile ducts and main pancreatic duct; no CT evidence of vascular encasement or metastatic disease. c. May 09, 2017: Patient undergoes ERCP, sphincterotomy, and bilateral stent placement. Bile duct biopsy performed at that time showed no evidence of malignancy. d. May 10, 2017: CA 19-9 = 445. e. May 10, 2017: CT chest shows calcified granuloma in lingula, as well as an adjacent small cluster of micronodular densities up to 5 mm, felt to be inflammatory. There was no definitive evidence of metastatic disease. f. May 14, 2017: Patient undergoes Whipple procedure and port placement. 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 Perineural invasion was present, but no lymphovascular invasion was noted. Five of 37 lymph nodes were positive for metastatic disease. g. May 02, 2017: Patient is noted to have elevated white blood cell count , and abnormal liver function tests. h. Gemcitabine regimen administered on day 1, 8, and 15 every 28 days 6 cycles started on 07-16-17. 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 Alcohol History He denies abuse Smoking History: No Smoking Status: Never Smoker Medications and Allergies Active Scripts Ondansetron (ZOFRAN ODT) 8 Mg Tab.rapdis, 8 MG PO Q8H, #30 TAB 1 Refill Prov:GREGORY LEW HABILITATION WORKER-BC, ONC 06/23/17 Docusate Sodium (DOCUSATE SODIUM) 100 Mg Tablet, 1 TAB PO BID, #30 TAB 0 Refills Prov:ROSALEE WONG MD 06/20/17 Oxycodone Hcl/Acetaminophen (OXYCODONE-ACETAMINOPHEN 5-325) 1 Each Tablet, 1-2 TAB PO Q4H Y for PAIN, #30 TAB 0 Refills Prov:ROSALEE WONG MD 06/20/17 Finasteride (FINASTERIDE) 5 Mg Tablet, 1 TAB PO QDAY, #90 TAB Prov:PRASHANT PEÑA MD 09/27/14 Reported Medications Lipase/Protease/Amylase (MIGUEL DICKEY 12,000 UNITS CAPSULE) 1 Each Capsule., 1 EACH PO DIRECTED 07/02/17 Calcium Carbonate (CALCIUM) 600 Mg Tablet, 600 MG PO QDAY 06/18/17 Pantoprazole Sodium (PANTOPRAZOLE SODIUM) 40 Mg Tablet., 40 DAILY, MG 0 Refills 06/09/17 Multivitamin (MULTI VITAMIN DAILY) 1 Each Tablet, 1 EACH PO 06/04/17 Ergocalciferol (Vitamin D2) (VITAMIN D2) 400 Unit Tablet, 2 TAB PO QDAY 09/09/14 Allergies: Coded Allergies: No Known Drug Allergies (Verified , 07/19/08) Review of System/Physical Exam Review of Systems All Systems Reviewed/Normal: Yes, Except as Noted Genitourinary: Positive for Nocturia (10-12 times in a night. He follows with Dr. Lewis and reports that he is on fenasteride for an enlarged prostate. ) Hematologic: Positive for Fatigue Physical Exam Vital Signs Temperature: 97.6 Pulse: 75 BP Systolic: 111 BP Diastolic: 77 Respiratory Rate: 14 O2 SAT: 95 O2 Delivery: Height (inches) 72.00 Weight lb: 119 Weight oz: Weight Kg (Rex): [id number] Pain: 0 ECOG Score: 1 General: Stable, Well Developed, Well Nourished, Not In Acute Distress HEENT: No Conjunctivitis, No Oral Thrush Neck: Supple Lungs: Clear to Auscultation Heart: Regular Rate, Regular Rhythm Abdomen: Soft and Nontender, No Masses Extremities: No Cyanosis, No Clubbing, No Edema Psychiatric: Mood appears normal, Affect appears normal Skin: No Skin Rashes, No Bruising, No Purpura Diagnostic Studies Diagnostic Studies Laboratory Item Value Date Time CA 19-9 Antigen 23 U/mL 07/23/17 1050 CA 19-9 Antigen 21 U/mL 06/25/17 1112 Laboratory Tests 08/06/17 11:30 Laboratory Tests 07/16/17 09:30: Neutrophils % (Manual) 66, Band Neutrophils % 1, Lymphocytes % (Manual) 20, Monocytes % (Manual) 9, Eosinophils % (Manual) 0, Basophils % (Manual) 0, Metamyelocytes % 3, Myelocytes % 1, Anisocytosis 1+ 07/23/17 10:50: Peripheral Blood Smear Yes, CA 19-9 Antigen 23 07/23/17 13:15: Urine Color Yellow, Urine Clarity Clear, Urine pH 7.0, Urine Specific Mcloud 1.012, Urine Protein Negative, Urine Glucose (UA) Negative, Urine Ketones Negative, Urine Blood Negative, Urine Nitrite Negative, Urine Bilirubin Negative , Urine Urobilinogen Negative, Urine Leukocyte Esterase Negative, Urine RBC None , Urine WBC <1, Urine Squamous Epithelial Cells None, Urine Bacteria Negative, Urine Mucus None 08/06/17 11:30: White Blood Count 4.6, Red Blood Count 4.14, Hemoglobin 13.0, Hematocrit 38.8, Mean Corpuscular Volume 93.8, Mean Corpuscular Hemoglobin 31.4, Mean Corpuscular Hemoglobin Concent 33.5, Red Cell Distribution Width 15.7, Platelet Count 169, Mean Platelet Volume 8.1, Neutrophils (%) (Auto) 79.9, Lymphocytes (% ) (Auto) 8.9, Monocytes (%) (Auto) 10.1, Eosinophils (%) (Auto) 0.5, Basophils ( %) (Auto) 0.6, Nucleated RBC Relative Count (auto) 0.1, Neutrophils # (Auto) 3.6 , Lymphocytes # (Auto) 0.4, Monocytes # (Auto) 0.5, Eosinophils # (Auto) 0.0, Basophils # (Auto) 0.0, Nucleated RBC Absolute Count (auto) 0.01, Sodium Level 138, Potassium Level 4.3, Chloride Level 106, Carbon Dioxide Level 25, Blood Urea Nitrogen 13, Creatinine 0.60, Glomerular Filtration Rate Calc > 60.0, Random Glucose 105, Calcium Level 8.2, Total Bilirubin 0.4, Aspartate Amino Transf (AST/SGOT) 29, Alanine Aminotransferase (ALT/SGPT) 46, Alkaline Phosphatase 91, Total Protein 6.1, Albumin 3.1 Assessment and Plan Assessment & Plan Patient is a very pleasant 76 year old gentleman with a history of resected stage IIB pancreatic adenocarcinoma. CT chest abdomen and pelvis completed as baseline. CT shows postsurgical changes from Whipple procedure, anastomosis appears extremely narrowed, stomach was very distended with fluid and particulate material area and there is wall thickening in the 2nd portion of the duodenum possibly representing edema. There are 3 pulmonary nodules in the left upper lobe measuring up to 4 mm, one calcified 2 noncalcified. We will continue to monitor these. There is no evidence of metastatic disease in other areas. Previous lower extremity edema has resolved . Patient is eating well and tolerating treatment without side effects or difficulty. He will receive cycle 2 day 15 of gemcitabine today. Previously elevated white count has normalized. Patient will follow with provider with each treatment. I personally spent a total of 20 minutes. Of that 20 minutes was counseling/ coordination of patient's care. See my note above for details. Copies to: JAMEEL KEYES MD, NANCY J HABILITATION WORKER-BC, ONC Aug 06, 2017 12:40
[2017-08-06 13:02] VITALS: BP 115/85
[2017-08-13 11:32] LABS: PLATELET COUNT, AUTOMATED 208 K/uL (150-450)
[2017-08-20 13:02] VITALS: BP 130/77
[2017-08-20] MEDS: NS(*) 0.9% 500 ML BAG 500 ML IV PRN (13:43)
[2017-08-20] MEDS: DEXAMETHASONE SOD PHOS 10MG/ML IVP PRN (14:09)
[2017-08-20 15:25] VITALS: BP 135/74
[2017-08-20] MEDS: HEPARIN FLSH (PORT) 500 UN/5ML IVP PRN (15:26)
--- NOTE | 2017-08-20 19:16 | ONCOLOGY FOLLOW UP NOTE ---
EVENT DATE: August 20, 2017 REASON FOR FOLLOWUP Stage II pancreatic adenocarcinoma, status post Whipple; ongoing adjuvant gemcitabine chemotherapy. CHIEF COMPLAINT Insomnia. INTERIM HISTORY Dean reports that for the most part he has been feeling about the same since our last visit. He has had some ongoing trouble sleeping, but he attributes most of this to nocturia. He at worst will be up as many as 15 times a night to urinate. On good nights, he is up four to five times. He has no difficulty emptying his bladder, he just has to go frequently. He reports no malodorous urine, fever or back pain. He has had ongoing good experience with pancreatic enzymes, but sometimes he forgets, and he will have loose stools as a result. His appetite tends to be fairly good. He has not been able to put on any weight , however. He reports no significant nausea. He has had some leg swelling, for which he wears compression stockings. REVIEW OF SYSTEMS Otherwise negative, and all systems were reviewed. ONCOLOGY HISTORY Stage IIB pancreatic adenocarcinoma. a. Initial presentation with several months of progressive weight loss, fatigue, and change in stool color. He was noted by his PCP to have scleral icterus. Labs were drawn, revealing elevated bilirubin. CT scan at that time showed concern for a pancreatic mass. He was then referred to Dr. Moody for surgical management. b. May 09, 2017: CT of the abdomen and pelvis revealed 2.7 cm poorly defined mid pancreatic head mass, marked dilatation of bile ducts and main pancreatic duct; no CT evidence of vascular encasement or metastatic disease. c. May 09, 2017: Patient undergoes ERCP, sphincterotomy, and bilateral stent placement. Bile duct biopsy performed at that time showed no evidence of malignancy. d. May 10, 2017: CA 19-9 = 445. e. May 10, 2017: CT chest shows calcified granuloma in lingula, as well as an adjacent small cluster of micronodular densities up to 5 mm, felt to be inflammatory. There was no definitive evidence of metastatic disease. f. May 14, 2017: Patient undergoes Whipple procedure and port placement. 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 Perineural invasion was present, but no lymphovascular invasion was noted. Five of 37 lymph nodes were positive for metastatic disease. g. May 02, 2017: Patient is noted to have elevated white blood cell count , and abnormal liver function tests. h. June 05, 2017: CT chest, abdomen and pelvis: Post surgical changes from Whipple procedure. Anastomosis is narrowed; stomach is very distended with fluid and particulate material. There is some edema of proximal small bowel loops. There appear to be several small filling defects likely representing thrombi in the mid to distal branches of the mesenteric vein. Diffuse hepatic steatosis is present. Three pulmonary nodules in the left upper lobe measuring up to 4 mm. One of these is calcified, two adjacent noncalcified nodules could represent granulomatous disease. i. June 2017: Initiation of adjuvant gemcitabine chemotherapy PAST MEDICAL HISTORY 1. Benign prostatic hyperplasia. 2. Hypertension. PAST SURGICAL HISTORY 1. Whipple procedure, as above. 2. ERCP with stent placement, as above. 3. History of colon surgery. 4. History of eye surgery. 5. History of wisdom tooth extraction. SOCIAL HISTORY The patient is a never smoker. He rarely drinks alcohol. There is no history of illicit drug use. FAMILY HISTORY Noncontributory. CURRENT MEDICATIONS 1. Creon. 2. Zofran p.r.n. 3. Docusate p.r.n. 4. Percocet p.r.n. 5. Calcium supplement. 6. Pantoprazole. 7. Multivitamin. 8. Finasteride. 9. Vitamin D2. VITAL SIGNS Temperature is 96.6, blood pressure 130/77, heart rate is 72, respirations 14, oxygen saturation is 91% on room air. PHYSICAL EXAMINATION GENERAL: Patient is alert and oriented times three, in no apparent distress, sitting in the infusion chair. He is interactive and quite pleasant. He is very thin. HEENT: Exam reveals anicteric sclerae. No significant oropharyngeal lesions. NEUROLOGIC: Exam is grossly nonfocal. His gait is normal. EXTREMITIES: Exam reveals some edema of the bilateral lower extremities, but he is wearing compression stockings. SKIN: Exam reveals dry skin only. No concerning rash or lesion. LABORATORY STUDIES Reviewed per the [facility] medical record. IMAGING None today. ASSESSMENT AND PLAN Stage II pancreatic adenocarcinoma, resected. Dean continues to do remarkably well with adjuvant gemcitabine chemotherapy. He is here today to begin his third of six planned cycles. We spent time reviewing his current symptoms, including urinary frequency, sleep disruption, dry skin, loose stools when he misses his pancreatic enzymes, and some ongoing lower extremity swelling for which he uses compression stockings. Dean has no concerning signs or symptoms to suggest recurrence of his pancreatic cancer today. We reviewed his labs. These are unremarkable with the exception of a moderate thrombocytosis, possibly reactive in nature or due to emerging iron deficiency. We will check his iron studies with his next blood draw. Dean is not particularly interested in any kind of a sleep aid at this point. He does see a urologist in [place], and I have offered to make a phone call to see if we cannot get him in for a visit. He would like to give this some thought. We will have him continue with chemotherapy per protocol. I will plan to see him back in [place]'s [place] [facility] [place] B[place]
[~2017-08-27] VITALS: Ht 182.9 cm; Wt 58.2 kg
[~2017-08-27 12:42] MED LIST: ALTEPLASE RECOMB 2 MG VIAL IVP PRN; ASPI-757 PO; ASPI1TAB35 PO; CALC600T63 PO; DEXTROSE 5%(*) 100 ML BAG 100 ML IVPB PRN; DIPH0.5D12 IM; DOCU100T13 PO; ERGO400T10 PO; EZET1TAB55 PO; FINA5TAB67 PO; FISH OIL1 CAP PO; FLUT16SP19 NS; GEMCITABINE IVPB ONE; HYDR12.556 PO; IOPAMIDOL 76% 75 ML INFUS BTL 75 ML ONE; LIDOCAINE/SOD BICARB 8.4% SYR ID PRN; LIPA1CAP61 PO; MULT-1335 PO; MULT1TAB64 PO; NS 0.9% IVPB ONE; OMEG-11 PO; ONDA8TAB94 PO; OXYC-373 PO; PANT40TA65; PNEU0.5D3 IM; SIMV-49 PO; WATER STERILE 10 ML VIAL IVP PRN; [UNRECOGNIZED DRUG - OTHER] IVPB ONE
[2017-08-27 12:51] VITALS: BP 144/81
[2017-08-27] MEDS: NS(*) 0.9% 500 ML BAG 500 ML IV PRN (13:20)
--- NOTE | 2017-08-27 13:57 | ONC Progress Note - NP.Halsey ---
Patient History Date of Service Aug 27, 2017 Reason For Visit/HPI Rosalee is a 76-year-old male who has followed with Dr. 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 He is currently receiving gemcitabine on days 1, 8, and 15 every 28 days 6 cycles and is scheduled for cycle 3 day 8 today. Patient denies any side effects from the chemotherapy such as nausea or vomiting. Patient reports that he has occasional episodes of diarrhea directly related to his pancreatic enzymes. If he does not take enough he will have loose stools and occasional episodes of incontinence. Patient reports that his insomnia is somewhat improved. He believes that it is directly related to increased nocturia and if he minimizes his movement at rest it does not trigger his need to urinate. Patient tried to call Dr. Lewis-urologist, over in [place] and was told that he no longer is and practice. Patient is planning to see his primary care provider this week and will discuss his urinary symptoms and history of enlarged prostate with his provider. Patient continues to wear compression stockings and has good management of lower extremity bilateral edema. He has not been able to increase weight but has been able to maintain it. Patient did have iron studies completed today. Oncology History Stage IIB pancreatic adenocarcinoma. a. Initial presentation with several months of progressive weight loss, fatigue, and change in stool color. He was noted by his PCP to have scleral icterus. Labs were drawn, revealing elevated bilirubin. CT scan at that time showed concern for a pancreatic mass. He was then referred to Dr. Moody for surgical management. b. May 09, 2017: CT of the abdomen and pelvis revealed 2.7 cm poorly defined mid pancreatic head mass, marked dilatation of bile ducts and main pancreatic duct; no CT evidence of vascular encasement or metastatic disease. c. May 09, 2017: Patient undergoes ERCP, sphincterotomy, and bilateral stent placement. Bile duct biopsy performed at that time showed no evidence of malignancy. d. May 10, 2017: CA 19-9 = 445. e. May 10, 2017: CT chest shows calcified granuloma in lingula, as well as an adjacent small cluster of micronodular densities up to 5 mm, felt to be inflammatory. There was no definitive evidence of metastatic disease. f. May 14, 2017: Patient undergoes Whipple procedure and port placement. 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 Perineural invasion was present, but no lymphovascular invasion was noted. Five of 37 lymph nodes were positive for metastatic disease. g. May 02, 2017: Patient is noted to have elevated white blood cell count , and abnormal liver function tests h. June 05, 2017: CT chest, abdomen and pelvis: Post surgical changes from Whipple procedure. Anastomosis is narrowed; stomach is very distended with fluid and particulate material. There is some edema of proximal small bowel loops. There appear to be several small filling defects likely representing thrombi in the mid to distal branches of the mesenteric vein. Diffuse hepatic steatosis is present. Three pulmonary nodules in the left upper lobe measuring up to 4 mm. One of these is calcified, two adjacent noncalcified nodules could represent granulomatous disease. i. 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 Alcohol History He denies abuse Smoking History: No Smoking Status: Never Smoker Medications and Allergies Active Scripts Ondansetron (ZOFRAN ODT) 8 Mg Tab.rapdis, 8 MG PO Q8H, #30 TAB 1 Refill Prov:GREGORY LEW TECH[employer]ICAL SOLUTIONS DIRECTOR-BC, ONC 06/23/17 Docusate Sodium (DOCUSATE SODIUM) 100 Mg Tablet, 1 TAB PO BID, #30 TAB 0 Refills Prov:ROSALEE WONG MD 06/20/17 Oxycodone Hcl/Acetaminophen (OXYCODONE-ACETAMINOPHEN 5-325) 1 Each Tablet, 1-2 TAB PO Q4H Y for PAIN, #30 TAB 0 Refills Prov:ROSALEE WONG MD 06/20/17 Finasteride (FINASTERIDE) 5 Mg Tablet, 1 TAB PO QDAY, #90 TAB Prov:PRASHANT PEÑA MD 09/27/14 Reported Medications Lipase/Protease/Amylase (CREON DR 12,000 UNITS CAPSULE) 1 Each Capsule., 1 EACH PO DIRECTED 07/02/17 Calcium Carbonate (CALCIUM) 600 Mg Tablet, 600 MG PO QDAY 06/18/17 Pantoprazole Sodium (PANTOPRAZOLE SODIUM) 40 Mg Tablet., 40 DAILY, MG 0 Refills 06/09/17 Multivitamin (MULTI VITAMIN DAILY) 1 Each Tablet, 1 EACH PO 06/04/17 Ergocalciferol (Vitamin D2) (VITAMIN D2) 400 Unit Tablet, 2 TAB PO QDAY 09/09/14 Allergies: Coded Allergies: No Known Drug Allergies (Verified , 07/19/08) Review of System/Physical Exam Review of Systems All Systems Reviewed/Normal: Yes, Except as Noted Gastrointestinal: Diarrhea Genitourinary: Positive for Nocturia Endocrine: Positive for Other (patient is currently on pancreatic enzymes) Hematologic: Positive for Fatigue Physical Exam Vital Signs Temperature: 97.7 Pulse: 69 BP Systolic: 144 BP Diastolic: 81 Respiratory Rate: 16 O2 SAT: 92 O2 Delivery: Height (inches) 72.00 Weight lb: 0 Weight oz: Weight Kg (Rex): [id number] Pain: 0 ECOG Score: 1 General: Stable, Well Developed, Not Well Nourished (patient is very thin and frail), Not In Acute Distress HEENT: No Trauma, No Conjunctivitis, No Icterus, No Mucositis Neck: Supple Lungs: Clear to Auscultation Heart: Regular Rate, Regular Rhythm Abdomen: Soft and Nontender, No Hepatosplenomegaly, No Masses, Other (bowel sounds are active) Extremities: No Cyanosis, No Clubbing, No Edema (patient is wearing bilateral lower extremity compression stockings with no edema) Lymphadenopathy: No Cervical Psychiatric: Mood appears normal, Affect appears normal Skin: No Skin Rashes, No Bruising, No Purpura Diagnostic Studies Diagnostic Studies Laboratory Item Value Date Time Iron Level 35 ug/dl L 08/27/17 1300 Total Iron Binding Capacity 274 ug/dl 08/27/17 1300 Percent Iron Saturation 12.8 % 08/27/17 1300 Ferritin 142 ng/ml 08/27/17 1300 Laboratory Tests 08/27/17 13:00 Laboratory Tests 07/16/17 09:30: Metamyelocytes % 3, Myelocytes % 1, Anisocytosis 1+ 07/23/17 10:50: Peripheral Blood Smear Yes 07/23/17 13:15: Urine Color Yellow, Urine Clarity Clear, Urine pH 7.0, Urine Specific [place] 1.012, Urine Protein Negative, Urine Glucose (UA) Negative, Urine Ketones Negative, Urine Blood Negative, Urine Nitrite Negative, Urine Bilirubin Negative , Urine Urobilinogen Negative, Urine Leukocyte Esterase Negative, Urine RBC None , Urine WBC <1, Urine Squamous Epithelial Cells None, Urine Bacteria Negative, Urine Mucus None 08/13/17 11:00: Red Blood Count 4.27, Mean Corpuscular Volume 93.2, Mean Corpuscular Hemoglobin 31.2, Mean Corpuscular Hemoglobin Concent 33.5, Red Cell Distribution Width 16.0 , Mean Platelet Volume 7.7, Monocytes (%) (Auto) , Eosinophils (%) (Auto) , Basophils (%) (Auto) , Nucleated RBC Relative Count (auto) , Monocytes # (Auto) , Eosinophils # (Auto) , Basophils # (Auto) , Nucleated RBC Absolute Count (auto ) , Neutrophils % (Manual) 68, Band Neutrophils % 1, Lymphocytes % (Manual) 24, Monocytes % (Manual) 7, Eosinophils % (Manual) 0, Basophils % (Manual) 0, Platelet Estimate Normal, Polychromasia 1+, Stomatocytes 1+ 08/20/17 13:20: CA 19-9 Antigen 21 08/27/17 13:00: White Blood Count 4.9, Hemoglobin 12.9, Hematocrit 38.7, Platelet Count 380, Neutrophils (%) (Auto) 67.6, Lymphocytes (%) (Auto) 17.8, Neutrophils # (Auto) 3.3, Lymphocytes # (Auto) 0.9, Sodium Level 137, Potassium Level 4.0, Chloride Level 103, Carbon Dioxide Level 24, Blood Urea Nitrogen 15, Creatinine 0.60, Glomerular Filtration Rate Calc > 60.0, Random Glucose 87, Calcium Level 8.3, Iron Level 35, Total Iron Binding Capacity 274, Percent Iron Saturation 12.8, Total Bilirubin 0.5, Aspartate Amino Transf (AST/SGOT) 53, Alanine Aminotransferase (ALT/SGPT) 57, Alkaline Phosphatase 95, Total Protein 6.1, Albumin 3.1 Assessment and Plan Assessment & Plan Patient is a very pleasant 76 year old gentleman with a history of resected stage IIB pancreatic adenocarcinoma. CT chest abdomen and pelvis completed as baseline. CT shows postsurgical changes from Whipple procedure, anastomosis appears extremely narrowed, stomach was very distended with fluid and particulate material area and there is wall thickening in the 2nd portion of the duodenum possibly representing edema. There are 3 pulmonary nodules in the left upper lobe measuring up to 4 mm, one calcified 2 noncalcified. We will continue to monitor these. There was no evidence of metastatic disease in other areas. He is currently on gemcitabine day 1, 8, 15 on a 28 day cycle scheduled to complete 6 full cycles. No changes in plan of care today. Patient will complete cycle 3 day 8 today. Iron studies completed show a ferritin level of 142, iron of 35. MCV remains in the normal limit, hemoglobin is within normal limits. Patient is scheduled to follow with primary care provider this Friday and we'll review symptoms of nocturia and history of prostatitis. Patient will follow with a provider with each treatment. I personally spent a total of 20 minutes. Of that 20 minutes was counseling/ coordination of patient's care. See my note above for details. Copies to: JAMEEL KEYES MD, NANCY J TECHNICAL SOLUTIONS DIRECTOR-BC, ONC Aug 27, 2017 13:57
[2017-08-27] MEDS: DEXAMETHASONE SOD PHOS 10MG/ML IVP PRN (14:03)
[2017-08-27] MEDS ORDERED: GEMCITABINE IVPB ONE (14:35)
[2017-08-27] MEDS ORDERED: [UNRECOGNIZED DRUG - OTHER] IVPB ONE (14:35)
[2017-08-27] MEDS: HEPARIN FLSH (PORT) 500 UN/5ML IVP PRN (15:15)
[2017-08-29] MEDS ORDERED: MIRT-22 PO (11:43)
== END 2017-09-01 ==
LOC: ONC 12:42
PROVIDERS: ATTEND Internal Medicine Medical Oncology
DX: Z51.11 Encounter for antineoplastic chemotherapy (principal); C25.9 Malignant neoplasm of pancreas, unspecified; K21.9 Gastro-esophageal reflux disease without esophagitis; Z79.899 Other long term (current) drug therapy; R53.83 Other fatigue; R19.7 Diarrhea, unspecified; N40.1 Benign prostatic hyperplasia with lower urinary tract symptoms; R35.1 Nocturia
CPT/HCPCS: 36415; 71260; 74177; 81001; 82728; 83540; 83550; 85025; 85027; 86301; 96367; 96375; 96413; G0463; J1100; J1642; J7040; J7050; J9201; Q9967; 82040; 82247; 82310; 82374; 82435; 82565; 82947; 84075; 84132; 84155; 84295; 84450; 84460; 84520; 99212

== ENCOUNTER 2017-09-03 14:00 | Outpatient (RCR) | payer MEDICARE ==
--- NOTE | 2017-06-24 12:40 | PT INITIAL EVALUATION ---
MEDICAL DIAGNOSIS: Pancreatic Adenocarcinoma TREATMENT DIAGNOSIS: Pancreatic Adenocarcinoma, Generalized Weakness DATE OF ONSET: 06/23/17 SUBJECTIVE: Dean is a 76-year-old male who has followed with Dr. 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 Patient is seen today for education regarding chemotherapy with gemcitabine given on day 1, 8, and 15 every 28 days 6 cycles. Patient is scheduled to start later this week. His is with him today. Patient is seen with nurse practitioner and social work administrator present. At this time pt reports occasional back pain with sleeping, but otherwise his biggest concern is a recent loss in muscle mass and body weight. Back pain is not present at this time, but comes on when he lays on his back and is in his low back and hips. Pt reports that he is getting a new mattress to help with pain. Pt also reports that heat reduces pain. REHAB PROBLEM LIST: Increased Pain Decreased Strength Decreased Endurance Decreased Function Decreased ADL's Decreased Mobility Decreased Gait PREVIOUS MEDICAL HISTORY: See EMR OCCUPATION: Retired OBJECTIVE: Posture: Decreaed spinal curvature throughout. ROM: WFL Strength: MMT B LE: Hip: flexion: B 4/5, Ext: B 5/5, Abd/Add: 5/5. Knee: L 4/5, R 5/5. Ankle: PF/DF: B 5/5 Special Tests: ECOG Performance Status: Grade 3 FACT-G (Initial Eval 06/23/17): PWB: 24/28, SWB: 25.7/28, EWB: 21/, FWB: 16/ , Total Score: 86.7/108 Other Objective Findings: Pt reports mild difficulty with buttoning buttons and picking up small objects at this time. ASSESSMENT: Pt shows signs and symptoms consistent with generalized weakness with recent pancreatic adenocarcinoma diagnosis. Physical therapy is indicated to address the above deficits related to function in ADL's as well as to manage pt maintenance of current condition with ongoing oncological intervention. Short Term Goals In 3 MO pt will increase ECOG performance status to grade 2 indicating improved function as well as to decrease side-effects from ongoing oncological intervention. In 6 MO pt will maintain FACT-G score of >80/108 indicating maintenance of functional status with ADL's. In 6 MO pt will maintain strength of >4/5 in all LE MMT for improved function with ADL's. Patient's Goals Gain muscle mass and weight, maintain function. PLAN: Patient to be seen for Manual Therapy/STM/MET Strengthening/condition Ice/Heat Range of Motion Spinal Stabilization Ultrasound Stretching Iontophoresis Neuromuscular Re-ed Closed Chain Program Electrical Stim Posture/Body mechanics Gait Trg/Balance Trg Biofeedback Home Exercise Program Mech./Manual Traction Therapeutic Activities Pelvic Floor 1x/MO for 6 MO If you have any questions, comments, or concerns about this report or plan, please contact me at . Thank you, Taylor Piedra, PT, DPT, CLT MTDD
--- NOTE | 2017-07-30 17:02 | PT PLAN OF CARE ---
Physician: SITA Pitt Patient is being seen: 2x/MO Therapist: Taylor Piedra, PT, DPT, CLT Medical Diagnosis: Pancreatic Adenocarcinoma Treatment Diagnosis: Pancreatic Adenocarcinoma, Generalized Weakness Date of Onset: 06/23/17 Date of Initial Evaluation: 06/23/17 Date patient was last seen: 07/30/17 Number of treatments: 2 Number of cancellations/No shows: 0 INTERVENTIONS: Manual Therapy/STM/MET Strengthening/condition Ice/Heat Range of Motion Spinal Stabilization Ultrasound Stretching Iontophoresis Neuromuscular Re-ed Closed Chain Program Electrical Stim Posture/Body mechanics Gait Trg/Balance Trg Biofeedback Home Exercise Program Mech./Manual Traction Therapeutic Activities Pelvic Floor GOALS: In 3 MO pt will increase ECOG performance status to grade 2 indicating improved function as well as to decrease side-effects from ongoing oncological intervention. In Progress In 6 MO pt will maintain FACT-G score of >80/108 indicating maintenance of functional status with ADL's. In Progress In 6 MO pt will maintain strength of >4/5 in all LE MMT for improved function with ADL's. In Progress PATIENT'S GOAL: Gain muscle mass and weight, maintain function. Status of Patient's Goals: In Progress Patient Compliance: Fair Prognosis: Fair Reasons for continuing therapy: Pt shows B LE distal extremity edema with pitting evident. At the time swelling is managed by compression stockings which pt was educated on donning and doffing and night time alternatives. Edema to be monitored at next visit for any signs in change and for possible manual drainage. Pt activity level remains stable at grade 3 performance status, however pt reports that he will try to increase activity level including walking to manage edema as well. Pt has no back pain at this time. Posture: Decreased spinal curvature throughout. ROM: WFL Strength: MMT B LE: Hip: flexion: B 4/5, Ext: B 5/5, Abd/Add: 5/5. Knee: L 4/5, R 5/5. Ankle: PF/DF: B 5/5 Special Tests: ECOG Performance Status: Grade 3 FACT-G (Initial Eval 06/23/17): PWB: , SWB: 25.7/28, EWB: , FWB: , Total Score: 86.7/108 Edema: B Distal LE pitting edema evident. If you have any questions or concerns, please feel free to contact me at [phone]. Thank you, Taylor Piedra, PT, DPT, CLT MTDD
--- NOTE | 2017-08-20 15:12 | PT PLAN OF CARE ---
Physician: SITA Pitt Patient is being seen: 1x/Week Therapist: Taylor Piedra, PT, DPT, CLT Medical Diagnosis: Pancreatic Adenocarcinoma Treatment Diagnosis: Pancreatic Adenocarcinoma, Generalized Weakness Date of Onset: 06/23/17 Date of Initial Evaluation: 06/23/17 Date patient was last seen: 08/20/17 Number of treatments: 3 Number of cancellations/No shows: 0 INTERVENTIONS: Manual Therapy/STM/MET Strengthening/condition Ice/Heat Range of Motion Spinal Stabilization Ultrasound Stretching Iontophoresis Neuromuscular Re-ed Closed Chain Program Electrical Stim Posture/Body mechanics Gait Trg/Balance Trg Biofeedback Home Exercise Program Mech./Manual Traction Therapeutic Activities Pelvic Floor GOALS: In 3 MO pt will increase ECOG performance status to grade 2 indicating improved function as well as to decrease side-effects from ongoing oncological intervention. In Progress In 6 MO pt will maintain FACT-G score of >80/108 indicating maintenance of functional status with ADL's. In Progress In 6 MO pt will maintain strength of >4/5 in all LE MMT for improved function with ADL's. In Progress PATIENT'S GOAL: Gain muscle mass and weight, maintain function. Status of Patient's Goals: In Progress Patient Compliance: Fair Prognosis: Fair Reasons for continuing therapy: Dean shows only slight decline in functional status secondary to fatigue and decreased activity, as well as insomnia. Pt showed good response to strengthening in supplemental melatonin as well as herbal tea to help with sleeping was discussed with Oncology MD and pt to help with sleep. More frequent PT is indicated for this patient to maintain functional strength and endurance as well as increase muscle mass. Posture: Decreased spinal curvature throughout. ROM: WFL Strength: MMT B LE: Hip: flexion: B 4/5, Ext: B 5/5, Abd/Add: 5/5. Knee: L 4/5, R 5/5. Ankle: PF/DF: B 5/5 Special Tests: ECOG Performance Status: Grade 3 FACT-G (Initial Eval 06/23/17): PWB: 24, SWB: 25.7, EWB: , FWB: , Total Score: 86.7/108 FACT-G 08/20/17: PWB: 24/, SWB: /, EWB: , FWB: 18/28, Total Score: 83 /108 Edema: B Distal LE pitting edema evident. If you have any questions or concerns, please feel free to contact me at . Thank you, Taylor Piedra, PT, DPT, CLT MTDD
[~2017-09-03 14:00] MED LIST changes: -ALTEPLASE RECOMB 2 MG VIAL IVP PRN; -DEXTROSE 5%(*) 100 ML BAG 100 ML IVPB PRN; -GEMCITABINE IVPB ONE; -IOPAMIDOL 76% 75 ML INFUS BTL 75 ML ONE; -LIDOCAINE/SOD BICARB 8.4% SYR ID PRN; +MIRT-22 PO; -NS 0.9% IVPB ONE; -WATER STERILE 10 ML VIAL IVP PRN; -[UNRECOGNIZED DRUG - OTHER] IVPB ONE
== END 2017-09-21 ==
LOC: PT 14:00
PROVIDERS: ATTEND Nurse Practitioner Family
DX: C25.9 Malignant neoplasm of pancreas, unspecified (principal); M62.81 Muscle weakness (generalized)
CPT/HCPCS: 97162

== ENCOUNTER 2017-11-26 12:40 | Outpatient (RCR) | payer MEDICARE ==
[2017-09-03] MEDS: DEXAMETHASONE SOD PHOS 10MG/ML IVP PRN (13:58)
[2017-09-03 15:01] VITALS: BP 126/80
[2017-09-03] MEDS: HEPARIN FLSH (PORT) 500 UN/5ML IVP PRN (15:04)
[2017-09-03] MEDS: NS(*) 0.9% 500 ML BAG 500 ML IV PRN (15:04)
--- NOTE | 2017-09-03 22:45 | ONCOLOGY FOLLOW UP NOTE ---
EVENT DATE: September 03, 2017 REASON FOR FOLLOWUP Stage II pancreatic adenocarcinoma, status post Whipple; ongoing adjuvant gemcitabine chemotherapy. CHIEF COMPLAINT Insomnia, fatigue, urinary frequency. INTERIM HISTORY Dean is here for cycle three day 15 gemcitabine infusion. He reports that things having going about the same since his last visit. He continues to be plagued by insomnia, as well as urinary frequency. He has had ongoing fatigue as a result. He reports no new pain. He denies fever. His appetite has been pretty good, and he has maintained his weight. He reports no changes in bowel habits. He is trying to stay as active as possible. He recently visited with his primary care provider, and mirtazapine was diagnosed to see if this would help with his insomnia. He has filled the prescription, but he has not tried it yet. REVIEW OF SYSTEMS Otherwise negative, and all systems were reviewed. ONCOLOGY HISTORY Stage IIB pancreatic adenocarcinoma. a. Initial presentation with several months of progressive weight loss, fatigue, and change in stool color. He was noted by his PCP to have scleral icterus. Labs were drawn, revealing elevated bilirubin. CT scan at that time showed concern for a pancreatic mass. He was then referred to Dr. Moody for surgical management. b. May 09, 2017: CT of the abdomen and pelvis revealed 2.7 cm poorly defined mid pancreatic head mass, marked dilatation of bile ducts and main pancreatic duct; no CT evidence of vascular encasement or metastatic disease. c. May 09, 2017: Patient undergoes ERCP, sphincterotomy, and bilateral stent placement. Bile duct biopsy performed at that time showed no evidence of malignancy. d. May 10, 2017: CA 19-9 = 445. e. May 10, 2017: CT chest shows calcified granuloma in lingula, as well as an adjacent small cluster of micronodular densities up to 5 mm, felt to be inflammatory. There was no definitive evidence of metastatic disease. f. May 14, 2017: Patient undergoes Whipple procedure and port placement. 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 Perineural invasion was present, but no lymphovascular invasion was noted. Five of 37 lymph nodes were positive for metastatic disease. g. May 02, 2017: Patient is noted to have elevated white blood cell count , and abnormal liver function tests. h. June 05, 2017: CT chest, abdomen and pelvis: Post surgical changes from Whipple procedure. Anastomosis is narrowed; stomach is very distended with fluid and particulate material. There is some edema of proximal small bowel loops. There appear to be several small filling defects likely representing thrombi in the mid to distal branches of the mesenteric vein. Diffuse hepatic steatosis is present. Three pulmonary nodules in the left upper lobe measuring up to 4 mm. One of these is calcified, two adjacent noncalcified nodules could represent granulomatous disease. i. June 2017: Initiation of adjuvant gemcitabine chemotherapy PAST MEDICAL HISTORY 1. Benign prostatic hyperplasia. 2. Hypertension. PAST SURGICAL HISTORY 1. Whipple procedure, as above. 2. ERCP with stent placement, as above. 3. History of colon surgery. 4. History of eye surgery. 5. History of wisdom tooth extraction. SOCIAL HISTORY The patient is a never smoker. He rarely drinks alcohol. There is no history of illicit drug use. FAMILY HISTORY Noncontributory. CURRENT MEDICATIONS 1. Creon. 2. Zofran p.r.n. 3. Docusate p.r.n. 4. Percocet p.r.n. 5. Calcium supplement. 6. Pantoprazole. 7. Multivitamin. 8. Finasteride. 9. Vitamin D2. 10. Mirtazapine p.r.n. insomnia (patient has not yet started). VITAL SIGNS Temperature is 97.8, blood pressure 125/83, heart rate is 81, respirations 14, oxygen saturation is 94% on room air. Weight is 58.7 kg. PHYSICAL EXAMINATION GENERAL: Patient is alert and oriented times three, in no apparent distress, sitting in the exam room chair. He is in good spirits and quite interactive. HEENT: Exam reveals anicteric sclerae. No significant oropharyngeal lesions. NEUROLOGIC: Exam is grossly nonfocal. EXTREMITIES: Exam reveals no edema, clubbing or cyanosis. SKIN: Cursory skin exam reveals no concerning rash or lesions. LABORATORY STUDIES Reviewed per the [facility] record. ASSESSMENT AND PLAN Stage II pancreatic adenocarcinoma. I had a good visit with Dean today. Essentially, he is doing about the same as he had during our last visit here. He is doing quite well with his adjuvant chemotherapy, and toxicity has been modest. He is fatigued, but this stems largely from his ongoing urinary frequency, as well as general problems with insomnia. I do think that mirtazapine is a reasonable option for him to try. The patient had multiple questions today about management of his insomnia, but to date he has been hesitant to try any kind of medicine to help him. We have extensively discussed potential changes he could make at home including fluid intake at night. I had previously recommended that he consider establishing care again with Urology, but he has not done so. Dean will continue to be followed closely here as he continues with adjuvant gemcitabine chemotherapy. I will plan to see him in one month, but he will follow up here in one week with Rea Fischer NP. [facility]
[2017-09-10 13:06] VITALS: BP 136/82
[2017-09-10 13:30] LABS: PLATELET COUNT, AUTOMATED 154 K/uL (150-450)
[2017-09-17 12:48] VITALS: BP 127/73
[2017-09-17] MEDS: NS(*) 0.9% 500 ML BAG 500 ML IV PRN (13:36)
[2017-09-17] MEDS: DEXAMETHASONE SOD PHOS 10MG/ML IVP PRN (13:36)
[2017-09-17] MEDS: HEPARIN FLSH (PORT) 500 UN/5ML IVP PRN (13:37)
[2017-09-17 14:58] VITALS: BP 119/73
[2017-09-24 12:38] VITALS: BP 138/79
[2017-09-24] MEDS: DEXAMETHASONE SOD PHOS 10MG/ML IVP PRN (13:33)
--- NOTE | 2017-09-24 13:42 | ONC Progress Note - NP.Halsey ---
Patient History Date of Service Sep 24, 2017 Reason For Visit/HPI Patient is seen in the clinic today for follow-up of his stage II pancreatic adenocarcinoma, status post Whipple. Patient is receiving adjuvant gemcitabine therapy. Overall he reports that he is tolerating it well and denies any nausea or vomiting. He has been able to maintain his weight. He has no bowel changes, he occasionally does have looser stools depending on the amount of pancreatic enzymes he uses. He will receive cycle 4 day 8 of gemcitabine today. Patient reports that his blood pressure is slightly elevated from previous. He will continue to monitor and he will contact primary care for it continues to increase. He previously was on hydrochlorothiazide but shares that he is no longer taking the medication. Denies any edema in the lower extremities and continues to wear compression stockings. Problem List (1) Adenocarcinoma of pancreas, stage 2 Oncology History Stage IIB pancreatic adenocarcinoma. a. Initial presentation with several months of progressive weight loss, fatigue, and change in stool color. He was noted by his PCP to have scleral icterus. Labs were drawn, revealing elevated bilirubin. CT scan at that time showed concern for a pancreatic mass. He was then referred to Dr. Moody for surgical management. b. May 09, 2017: CT of the abdomen and pelvis revealed 2.7 cm poorly defined mid pancreatic head mass, marked dilatation of bile ducts and main pancreatic duct; no CT evidence of vascular encasement or metastatic disease. c. May 09, 2017: Patient undergoes ERCP, sphincterotomy, and bilateral stent placement. Bile duct biopsy performed at that time showed no evidence of malignancy. d. May 10, 2017: CA 19-9 = 445. e. May 10, 2017: CT chest shows calcified granuloma in lingula, as well as an adjacent small cluster of micronodular densities up to 5 mm, felt to be inflammatory. There was no definitive evidence of metastatic disease. f. May 14, 2017: Patient undergoes Whipple procedure and port placement. 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 Perineural invasion was present, but no lymphovascular invasion was noted. Five of 37 lymph nodes were positive for metastatic disease. g. May 02, 2017: Patient is noted to have elevated white blood cell count , and abnormal liver function tests. h. June 05, 2017: CT chest, abdomen and pelvis: Post surgical changes from Whipple procedure. Anastomosis is narrowed; stomach is very distended with fluid and particulate material. There is some edema of proximal small bowel loops. There appear to be several small filling defects likely representing thrombi in the mid to distal branches of the mesenteric vein. Diffuse hepatic steatosis is present. Three pulmonary nodules in the left upper lobe measuring up to 4 mm. One of these is calcified, two adjacent noncalcified nodules could represent granulomatous disease. i. June 2017: Initiation of adjuvant gemcitabine chemotherapy Medical History Family History: Colorectal cancer MOTHER, , Age:61 (questionable) FH: CHF (congestive heart failure) FATHER ( OF MS DURING ASTHMA ATTACK), FH: asthma FATHER ( OF [place] DURING ASTHMA ATTACK), ( OF [place] DURING ASTHMA ATTACK) FH: renal cell carcinoma SISTER Psychosocial History Smoking History: No Smoking Status: Never Smoker Medications and Allergies Active Scripts Mirtazapine (MIRTAZAPINE) 15 Mg Tablet, 0.5-1 TAB PO QHS, #30 TAB 3 Refills Prov:JAMEEL KEYES MD 08/29/17 Ondansetron (ZOFRAN ODT) 8 Mg Tab.rapdis, 8 MG PO Q8H, #30 TAB 1 Refill Prov:GREGORY LEW MANAGER ANIMATION-BC, ONC 06/23/17 Docusate Sodium (DOCUSATE SODIUM) 100 Mg Tablet, 1 TAB PO BID, #30 TAB 0 Refills Prov:ROSALEE WONG MD 06/20/17 Oxycodone Hcl/Acetaminophen (OXYCODONE-ACETAMINOPHEN 5-325) 1 Each Tablet, 1-2 TAB PO Q4H Y for PAIN, #30 TAB 0 Refills Prov:ROSALEE WONG MD 06/20/17 Finasteride (FINASTERIDE) 5 Mg Tablet, 1 TAB PO QDAY, #90 TAB Prov:PRASHANT PEÑA MD 09/27/14 Reported Medications Lipase/Protease/Amylase (MIGUEL DICKEY 12,000 UNITS CAPSULE) 1 Each Capsule., 1 EACH PO DIRECTED 07/02/17 Calcium Carbonate (CALCIUM) 600 Mg Tablet, 600 MG PO QDAY 06/18/17 Pantoprazole Sodium (PANTOPRAZOLE SODIUM) 40 Mg Tablet., 40 DAILY, MG 0 Refills 11/20/17 Multivitamin (MULTI VITAMIN DAILY) 1 Each Tablet, 1 EACH PO 06/04/17 Ergocalciferol (Vitamin D2) (VITAMIN D2) 400 Unit Tablet, 2 TAB PO QDAY 09/09/14 Allergies: Coded Allergies: No Known Drug Allergies (Verified , 07/19/08) Review of System/Physical Exam Review of Systems All Systems Reviewed/Normal: Yes, Except as Noted Respiratory: Positive for Shortness of Breath (with exertion only) Gastrointestinal: Diarrhea (see above) Hematologic: Positive for Fatigue (rates his fatigue a 2 at a 10) Physical Exam Vital Signs Temperature: 97.6 Pulse: 56 BP Systolic: 138 BP Diastolic: 79 Respiratory Rate: 16 O2 SAT: 92 O2 Delivery: Height (inches) 72.00 Weight lb: 0 Weight oz: Weight Kg (Rex): [id number] Pain: 0 ECOG Score: 1 General: Stable, Well Developed, Well Nourished (patient is very thin and frail ), Not In Acute Distress HEENT: No Trauma, No Conjunctivitis Neck: Supple Lungs: Clear to Auscultation Heart: Regular Rate, Regular Rhythm Abdomen: Soft and Nontender, No Hepatosplenomegaly, No Masses, Other (bowel sounds are active) Extremities: No Cyanosis, No Clubbing, No Edema (agent is wearing compression stockings) Lymphadenopathy: No Cervical Psychiatric: Mood appears normal, Affect appears normal Skin: No Skin Rashes, No Bruising, No Purpura Diagnostic Studies Diagnostic Studies Laboratory Laboratory Tests 09/24/17 12:50 Laboratory Tests 09/10/17 13:00: Red Blood Count 4.20, Mean Corpuscular Volume 90.9, Mean Corpuscular Hemoglobin 30.2, Mean Corpuscular Hemoglobin Concent 33.2, Red Cell Distribution Width 17.7 , Mean Platelet Volume 8.0, Monocytes (%) (Auto) 8.2, Eosinophils (%) (Auto) 0.7 , Basophils (%) (Auto) 1.0, Nucleated RBC Relative Count (auto) 0.1, Monocytes # (Auto) 0.2, Eosinophils # (Auto) 0.0, Basophils # (Auto) 0.0, Nucleated RBC Absolute Count (auto) 0.00 09/17/17 12:50: CA 19-9 Antigen 19 09/24/17 12:50: White Blood Count 2.9, Hemoglobin 12.6, Hematocrit 38.3, Platelet Count 352, Neutrophils (%) (Auto) 54.7, Lymphocytes (%) (Auto) 27.5, Neutrophils # (Auto) 1.6, Lymphocytes # (Auto) 0.8, Sodium Level 140, Potassium Level 4.1, Chloride Level 106, Carbon Dioxide Level 23, Blood Urea Nitrogen 10, Creatinine 0.60, Glomerular Filtration Rate Calc > 60.0, Random Glucose 84, Calcium Level 8.2, Total Bilirubin 0.3, Aspartate Amino Transf (AST/SGOT) 32, Alanine Aminotransferase (ALT/SGPT) 44, Alkaline Phosphatase 90, Total Protein 6.1, Albumin 3.3 Assessment and Plan Assessment & Plan Stage II pancreatic adenocarcinoma. He is doing quite well with his adjuvant chemotherapy, and toxicity has been modest. He will follow with Dr. Maya in one month and will follow with myself alternating visits. We will continue to monitor her CA-19-9 which is currently at 19 and remains low. Blood pressure today is 138/79, this is an increased from previous. We will continue to monitor and patient will follow with primary care if it continues to increase. I personally spent a total of 20 minutes. Of that 15 minutes was counseling/ coordination of patient's care. See my note above for details. Copies to: JAMEEL KEYES MD, NANCY J MANAGER ANIMATION-BC, ONC Sep 24, 2017 13:41
[2017-10-01 12:45] VITALS: BP 140/89
[2017-10-01] MEDS: DEXAMETHASONE SOD PHOS 10MG/ML IVP PRN (13:34)
[2017-10-01] MEDS: NS(*) 0.9% 500 ML BAG 500 ML IV PRN (14:11)
[2017-10-01] MEDS: HEPARIN FLSH (PORT) 500 UN/5ML IVP PRN (14:13)
[2017-10-01 14:51] VITALS: BP 127/75
[2017-10-08 13:18] VITALS: BP 126/76
[2017-10-15 12:40] VITALS: BP 129/66
[2017-10-15] MEDS: DEXAMETHASONE SOD PHOS 10MG/ML IVP PRN (13:30)
[2017-10-15] MEDS: NS(*) 0.9% 500 ML BAG 500 ML IV PRN (14:11)
[2017-10-15] MEDS: HEPARIN FLSH (PORT) 500 UN/5ML IVP PRN (14:42)
[2017-10-15 14:44] VITALS: BP 133/80
--- NOTE | 2017-10-16 04:27 | ONCOLOGY FOLLOW UP NOTE ---
EVENT DATE: October 15, 2017 REASON FOR FOLLOWUP Stage II pancreatic adenocarcinoma,ongoing adjuvant gemcitabine chemotherapy. CHIEF COMPLAINT Insomnia, fatigue. INTERIM HISTORY Dean returns to clinic for a followup visit today. He reports that things in general have been going about the same, which is pretty well. He reports no fever. His appetite is pretty good, and his weight has been stable. He has had some loose stools, and he thinks he may need to make some adjustments in his pancreatic enzymes. He does continue to have problems with insomnia on and off. He has tried the mirtazapine a few times, but he has not noticed any change in his sleep habits. He reports some ongoing urinary frequency. His biggest concern today is about some charges that have come through from his ongoing medical care. REVIEW OF SYSTEMS Otherwise negative, and all systems were reviewed. ONCOLOGY HISTORY Stage IIB pancreatic adenocarcinoma. a. Initial presentation with several months of progressive weight loss, fatigue, and change in stool color. He was noted by his PCP to have scleral icterus. Labs were drawn, revealing elevated bilirubin. CT scan at that time showed concern for a pancreatic mass. He was then referred to Dr. Moody for surgical management. b. May 09, 2017: CT of the abdomen and pelvis revealed 2.7 cm poorly defined mid pancreatic head mass, marked dilatation of bile ducts and main pancreatic duct; no CT evidence of vascular encasement or metastatic disease. c. May 09, 2017: Patient undergoes ERCP, sphincterotomy, and bilateral stent placement. Bile duct biopsy performed at that time showed no evidence of malignancy. d. May 10, 2017: CA 19-9 = 445. e. May 10, 2017: CT chest shows calcified granuloma in lingula, as well as an adjacent small cluster of micronodular densities up to 5 mm, felt to be inflammatory. There was no definitive evidence of metastatic disease. f. May 14, 2017: Patient undergoes Whipple procedure and port placement. 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 Perineural invasion was present, but no lymphovascular invasion was noted. Five of 37 lymph nodes were positive for metastatic disease. g. May 02, 2017: Patient is noted to have elevated white blood cell count , and abnormal liver function tests. h. June 05, 2017: CT chest, abdomen and pelvis: Post surgical changes from Whipple procedure. Anastomosis is narrowed; stomach is very distended with fluid and particulate material. There is some edema of proximal small bowel loops. There appear to be several small filling defects likely representing thrombi in the mid to distal branches of the mesenteric vein. Diffuse hepatic steatosis is present. Three pulmonary nodules in the left upper lobe measuring up to 4 mm. One of these is calcified, two adjacent noncalcified nodules could represent granulomatous disease. i. June 2017: Initiation of adjuvant gemcitabine chemotherapy PAST MEDICAL HISTORY 1. Benign prostatic hyperplasia. 2. Hypertension. PAST SURGICAL HISTORY 1. Whipple procedure, as above. 2. ERCP with stent placement, as above. 3. History of colon surgery. 4. History of eye surgery. 5. History of wisdom tooth extraction. SOCIAL HISTORY The patient is a never smoker. He rarely drinks alcohol. There is no history of illicit drug use. FAMILY HISTORY Noncontributory. CURRENT MEDICATIONS 1. Creon. 2. Zofran p.r.n. 3. Docusate p.r.n. 4. Percocet p.r.n. 5. Calcium supplement. 6. Pantoprazole. 7. Multivitamin. 8. Finasteride. 9. Vitamin D2. 10. Mirtazapine p.r.n. insomnia (patient has not yet started). VITAL SIGNS Temperature is 98.0, blood pressure 129/66, pulse is 61, respirations 16, oxygen saturation 90% on room air. Weight is 59.3 kg. PHYSICAL EXAMINATION GENERAL: Patient is alert and oriented x 3, in no apparent distress, sitting in the exam room chair. He is quite talkative and interactive. He is thin. HEENT: Exam reveals anicteric sclerae. NEUROLOGIC: Exam is grossly nonfocal, and although his gait is slow and somewhat antalgic, it is stable. SKIN: Exam reveals no concerning rash or lesion. EXTREMITIES: Exam reveals no edema, clubbing or cyanosis. There is no erythema or tenderness to palpation of the extremities. LABORATORY STUDIES Laboratory studies are reviewed per the [facility] record. ASSESSMENT AND PLAN Stage II pancreatic adenocarcinoma. Dean continues to do remarkably well with adjuvant gemcitabine. He has completed four cycles to date. He understands that the plan is for him to receive six total cycles of adjuvant gemcitabine. He feels quite prepared to do this. He has had some ongoing issues with insomnia that he is managing at home, as well as urinary frequency. We discussed the charges that he has received from [facility], and I have asked staff here in the clinic to put him in touch with our financial counselors in [place]. They have agreed to do so. We discussed our plan moving forward, and Dean is quite interested in undergoing repeat imaging after his adjuvant chemotherapy is complete. I would agree. We will discuss this further when I see him again in three weeks. He has the option of moving forward with CT scan, or potentially CT/PET. BOUCHRA
[2017-10-22 13:15] VITALS: BP 144/81
[2017-10-22] MEDS: DEXAMETHASONE SOD PHOS 10MG/ML IVP PRN (14:24)
[2017-10-22 15:30] VITALS: BP 131/73
[2017-10-22] MEDS: HEPARIN FLSH (PORT) 500 UN/5ML IVP PRN (15:30)
[2017-10-22] MEDS: NS(*) 0.9% 500 ML BAG 500 ML IV PRN (16:47)
[2017-10-29 12:41] VITALS: BP 141/86
[2017-10-29] MEDS: DEXAMETHASONE SOD PHOS 10MG/ML IVP PRN (13:41)
[2017-10-29] MEDS: HEPARIN FLSH (PORT) 500 UN/5ML IVP PRN (14:53)
[2017-10-29] MEDS: NS(*) 0.9% 500 ML BAG 500 ML IV PRN (14:54)
[2017-10-29 14:55] VITALS: BP 126/80
[2017-11-05 13:02] VITALS: BP 134/79
[2017-11-05 13:11] LABS: PLATELET COUNT, AUTOMATED 175 K/uL (150-450)
[2017-11-12] MEDS: NS(*) 0.9% 500 ML BAG 500 ML IV PRN (13:00)
[2017-11-12 13:09] VITALS: BP 136/77
[2017-11-12 13:11] VITALS: BP 136/77
[2017-11-12] MEDS: DEXAMETHASONE SOD PHOS 10MG/ML IVP PRN (14:14)
[2017-11-12 15:18] VITALS: BP 133/75
[2017-11-12] MEDS: HEPARIN FLSH (PORT) 500 UN/5ML IVP PRN (15:18)
--- NOTE | 2017-11-12 19:55 | ONCOLOGY FOLLOW UP NOTE ---
EVENT DATE: November 12, 2017 REASON FOR FOLLOWUP Stage II pancreatic adenocarcinoma,ongoing adjuvant gemcitabine chemotherapy. CHIEF COMPLAINT Insomnia, fatigue. INTERIM HISTORY Dean returns to clinic for a follow-up visit today. He reports that he is a bit confused, as he was told that he is receiving his sixth cycle today, as he thought it was his fifth. He reports that he is doing pretty well in general. He does have some ongoing fatigue, as well as urinary frequency. He reports no fever. His appetite has been fair, and his weight has been stable. When he uses his pancreatic enzymes, his bowel habits are fairly regular. He does report some ongoing sleep disturbance. He denies nausea. REVIEW OF SYSTEMS Otherwise negative, and all systems were reviewed. ONCOLOGY HISTORY Stage IIB pancreatic adenocarcinoma. a. Initial presentation with several months of progressive weight loss, fatigue, and change in stool color. He was noted by his PCP to have scleral icterus. Labs were drawn, revealing elevated bilirubin. CT scan at that time showed concern for a pancreatic mass. He was then referred to Dr. Moody for surgical management. b. May 09, 2017: CT of the abdomen and pelvis revealed 2.7 cm poorly defined mid pancreatic head mass, marked dilatation of bile ducts and main pancreatic duct; no CT evidence of vascular encasement or metastatic disease. c. May 09, 2017: Patient undergoes ERCP, sphincterotomy, and bilateral stent placement. Bile duct biopsy performed at that time showed no evidence of malignancy. d. May 10, 2017: CA 19-9 = 445. e. May 10, 2017: CT chest shows calcified granuloma in lingula, as well as an adjacent small cluster of micronodular densities up to 5 mm, felt to be inflammatory. There was no definitive evidence of metastatic disease. f. May 14, 2017: Patient undergoes Whipple procedure and port placement. 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 Perineural invasion was present, but no lymphovascular invasion was noted. Five of 37 lymph nodes were positive for metastatic disease. g. May 02, 2017: Patient is noted to have elevated white blood cell count , and abnormal liver function tests. h. June 05, 2017: CT chest, abdomen and pelvis: Post surgical changes from Whipple procedure. Anastomosis is narrowed; stomach is very distended with fluid and particulate material. There is some edema of proximal small bowel loops. There appear to be several small filling defects likely representing thrombi in the mid to distal branches of the mesenteric vein. Diffuse hepatic steatosis is present. Three pulmonary nodules in the left upper lobe measuring up to 4 mm. One of these is calcified, two adjacent noncalcified nodules could represent granulomatous disease. i. June 2017: Initiation of adjuvant gemcitabine chemotherapy PAST MEDICAL HISTORY 1. Benign prostatic hyperplasia. 2. Hypertension. PAST SURGICAL HISTORY 1. Whipple procedure, as above. 2. ERCP with stent placement, as above. 3. History of colon surgery. 4. History of eye surgery. 5. History of wisdom tooth extraction. SOCIAL HISTORY The patient is a never smoker. He rarely drinks alcohol. There is no history of illicit drug use. FAMILY HISTORY Noncontributory. CURRENT MEDICATIONS 1. Creon. 2. Zofran p.r.n. 3. Docusate p.r.n. 4. Percocet p.r.n. 5. Calcium supplement. 6. Pantoprazole. 7. Multivitamin. 8. Finasteride. 9. Vitamin D2. 10. Mirtazapine p.r.n. insomnia (patient has not yet started). VITAL SIGNS Temperature is 97.2, blood pressure 136/77, heart rate is 58, respirations 16, oxygen saturation is 95% on room air. Weight is 61.9 kg. PHYSICAL EXAMINATION GENERAL: Patient is alert and oriented times three, in no apparent distress, sitting in the exam room chair. He is thin. He is interactive and quite pleasant. HEENT: Exam reveals anicteric sclerae. NEUROLOGIC: Exam is grossly nonfocal, although I did not test his gait today. EXTREMITIES: Exam reveals no edema, clubbing or cyanosis. There is no erythema or tenderness to palpation of the extremities. SKIN: Exam reveals no concerning rash or lesion. LABORATORY STUDIES Reviewed per the [facility] record. IMAGING None today. ASSESSMENT AND PLAN Stage II pancreatic adenocarcinoma. Dean is indeed receiving his sixth and final planned cycle of adjuvant gemcitabine chemotherapy. We confirmed this with infusion records today. We discussed the plan moving forward. He will complete this sixth cycle of chemotherapy, and then I have recommended that he go for a CT scan of the chest, abdomen and pelvis to assess the status of his pancreatic cancer. He does not give any focal symptoms, and he has no signs to suggest recurrence. We did spend some time today discussing potential future scenarios should there be evidence of recurrence. I do think that 5-FU based chemotherapy would be reasonable for him to consider if there is future evidence of recurrence, likely the FOLFOX regimen. We will certainly hope for the best on his follow-up imaging, however. We also touched on our plan for ongoing surveillance when he completes chemotherapy. I will plan to see him back in one month's time, and we will sit to discuss the results of his follow- up CT scan. BOUCHRA
[2017-11-19] MEDS: NS(*) 0.9% 500 ML BAG 500 ML IV PRN (13:03)
[2017-11-19] MEDS: DEXAMETHASONE SOD PHOS 10MG/ML IVP PRN (13:32)
[2017-11-19 14:08] VITALS: BP 147/73
[2017-11-19 15:08] VITALS: BP 141/79
[2017-11-19] MEDS: HEPARIN FLSH (PORT) 500 UN/5ML IVP PRN (15:09)
[~2017-11-26] VITALS: Ht 182.9 cm; Wt 61.3 kg
[~2017-11-26 12:40] MED LIST changes: +ACET-1966 PO; +ALTEPLASE RECOMB 2 MG VIAL IVP PRN; +DEXTROSE 5%(*) 100 ML BAG 100 ML IVPB PRN; +GEMCITABINE IVPB ONE; +LIDOCAINE/SOD BICARB 8.4% SYR ID PRN; +NS 0.9% IVPB ONE; +NS(*) 0.9% 100 ML BAG 100 ML IVPB PRN; +WATER STERILE 10 ML VIAL IVP PRN; +[UNRECOGNIZED DRUG - OTHER] IVPB ONE
[2017-11-26] MEDS: DEXAMETHASONE SOD PHOS 10MG/ML IVP PRN (13:50)
[2017-11-26] MEDS: NS(*) 0.9% 500 ML BAG 500 ML IV PRN (13:50)
[2017-11-26] MEDS ORDERED: GEMCITABINE IVPB ONE (14:45)
[2017-11-26] MEDS ORDERED: NS 0.9% IVPB ONE (14:45)
[2017-11-26] MEDS: HEPARIN FLSH (PORT) 500 UN/5ML IVP PRN (15:04)
[2017-11-26 15:07] VITALS: BP 132/82
== END 2017-12-01 ==
LOC: ONC 12:40
PROVIDERS: ATTEND Internal Medicine Medical Oncology
DX: Z51.11 Encounter for antineoplastic chemotherapy (principal); C25.9 Malignant neoplasm of pancreas, unspecified; Z79.899 Other long term (current) drug therapy; R53.83 Other fatigue; R35.0 Frequency of micturition; G47.00 Insomnia, unspecified
CPT/HCPCS: 36415; 85025; 85027; 86301; 96367; 96375; 96413; J1100; J1642; J7040; J7050; J9201; 82040; 82247; 82310; 82374; 82435; 82565; 82947; 84075; 84132; 84155; 84295; 84450; 84460; 84520

== ENCOUNTER 2017-11-26 13:45 | Outpatient (RCR) | payer MEDICARE ==
--- NOTE | 2017-10-02 12:38 | PT PLAN OF CARE ---
Physician: SITA Pitt Patient is being seen: 1x/Week Therapist: Taylor Piedra, PT, DPT, CLT Medical Diagnosis: Pancreatic Adenocarcinoma Treatment Diagnosis: Pancreatic Adenocarcinoma, Generalized Weakness Date of Onset: 06/23/17 Date of Initial Evaluation: 06/23/17 Date patient was last seen: 10/01/17 Number of treatments: 6 Number of cancellations/No shows: 0 INTERVENTIONS: Manual Therapy/STM/MET Strengthening/condition Ice/Heat Range of Motion Spinal Stabilization Ultrasound Stretching Iontophoresis Neuromuscular Re-ed Closed Chain Program Electrical Stim Posture/Body mechanics Gait Trg/Balance Trg Biofeedback Home Exercise Program Mech./Manual Traction Therapeutic Activities Pelvic Floor GOALS: In 3 MO pt will increase ECOG performance status to grade 2 indicating improved function as well as to decrease side-effects from ongoing oncological intervention. MET In 6 MO pt will maintain FACT-G score of >80/108 indicating maintenance of functional status with ADL's. In Progress In 6 MO pt will maintain strength of >4/5 in all LE MMT for improved function with ADL's. In Progress PATIENT'S GOAL: Gain muscle mass and weight, maintain function. Status of Patient's Goals: In Progress Patient Compliance: Fair Prognosis: Fair Reasons for continuing therapy: Dean shows improved functional mobility and well -being. Pt is very compliant with HEP and shows good gains in maintaining strength and preventing decline. Pt currently has minimal side-effects of treatment and is managing what he does have with exercise and diet habits. Pt is to continue with HEP and PT frequency throughout treatment to continue maintenance of status. ROM: WFL Strength: MMT B LE: Hip: flexion: B 5/5, Ext: B 5/5, Abd/Add: 5/5. Knee: L 4/5, R 5/5. Ankle: PF/DF: B 5/5 Special Tests: ECOG Performance Status: Grade 1 FACT-G (Initial Eval 06/23/17): PWB: 24/, SWB: 25.7/, EWB: , FWB: , Total Score: 86.7/108 FACT-G 08/20/17: PWB: 24/, SWB: /, EWB: , FWB: , Total Score: 83 /108 FACT-G 10/01/17: PWB: , SWB: , EWB: , FWB: 22.09/17, Total Score: 93.2/108 Edema: B Distal LE pitting edema evident. If you have any questions or concerns, please feel free to contact me at [phone]. Thank you, Taylor Piedra, PT, DPT, CLT MTDD
--- NOTE | 2017-10-23 10:17 | PT PLAN OF CARE ---
Physician: SITA Pitt Patient is being seen: 1x/Every 2 weeks Therapist: Taylor Piedra, PT, DPT, CLT Medical Diagnosis: Pancreatic Adenocarcinoma Treatment Diagnosis: Pancreatic Adenocarcinoma, Generalized Weakness Date of Onset: 06/23/17 Date of Initial Evaluation: 06/23/17 Date patient was last seen: 10/22/17 Number of treatments: 7 Number of cancellations/No shows: 0 INTERVENTIONS: Manual Therapy/STM/MET Strengthening/condition Ice/Heat Range of Motion Spinal Stabilization Ultrasound Stretching Iontophoresis Neuromuscular Re-ed Closed Chain Program Electrical Stim Posture/Body mechanics Gait Trg/Balance Trg Biofeedback Home Exercise Program Mech./Manual Traction Therapeutic Activities Pelvic Floor GOALS: In 3 MO pt will increase ECOG performance status to grade 2 indicating improved function as well as to decrease side-effects from ongoing oncological intervention. MET In 6 MO pt will maintain FACT-G score of >80/108 indicating maintenance of functional status with ADL's. In Progress In 6 MO pt will maintain strength of >4/5 in all LE MMT for improved function with ADL's. In Progress PATIENT'S GOAL: Gain muscle mass and weight, maintain function. Status of Patient's Goals: In Progress Patient Compliance: Excellent Prognosis: Fair Reasons for continuing therapy: Dean shows great commitment to continued exercise and mobility throughout oncology treatment. Pt shows minor side- effects from treatment including nausea and fatigue from decreased sleep. However, all side-effects are well managed and only result in minor functional deficits. Pt to continue with PT treatment throughout oncological intervention for further progress. ROM: WFL Strength: MMT B LE: Hip: flexion: B 5/5, Ext: B 5/5, Abd/Add: 5/5. Knee: L 4/5, R 5/5. Ankle: PF/DF: B 5/5 Special Tests: ECOG Performance Status: Grade 1 FACT-G (Initial Eval 06/23/17): PWB: 24, SWB: 25.7, EWB: , FWB: , Total Score: 86.7/108 FACT-G 08/20/17: PWB: 24/, SWB: , EWB: , FWB: , Total Score: 83 /108 FACT-G 10/01/17: PWB: , SWB: 28/28, EWB: , FWB: 22.2, Total Score: 93.2/108 FACT-G 10/22/17: PWB: , SWB: 24.5, EWB: , FWB: , Total Score: 91.5/108 Edema: B Distal LE pitting edema evident. If you have any questions or concerns, please feel free to contact me at . Thank you, Taylor Piedra, PT, DPT, CLT MTDD
--- NOTE | 2017-11-20 10:02 | PT PLAN OF CARE ---
Physician: SITA Pitt Patient is being seen: 1x/Week Therapist: Taylor Piedra, PT, DPT, CLT Medical Diagnosis: Pancreatic Adenocarcinoma Treatment Diagnosis: Pancreatic Adenocarcinoma, Generalized Weakness Date of Onset: 06/23/17 Date of Initial Evaluation: 06/23/17 Date patient was last seen: 11/19/17 Number of treatments: 9 Number of cancellations/No shows: 0 INTERVENTIONS: Manual Therapy/STM/MET Strengthening/condition Ice/Heat Range of Motion Spinal Stabilization Ultrasound Stretching Iontophoresis Neuromuscular Re-ed Closed Chain Program Electrical Stim Posture/Body mechanics Gait Trg/Balance Trg Biofeedback Home Exercise Program Mech./Manual Traction Therapeutic Activities Pelvic Floor GOALS: In 3 MO pt will increase ECOG performance status to grade 2 indicating improved function as well as to decrease side-effects from ongoing oncological intervention. MET In 6 MO pt will maintain FACT-G score of >80/108 indicating maintenance of functional status with ADL's. In Progress In 6 MO pt will maintain strength of >4/5 in all LE MMT for improved function with ADL's. In Progress PATIENT'S GOAL: Gain muscle mass and weight, maintain function. Status of Patient's Goals: In Progress Patient Compliance: Excellent Prognosis: Fair Reasons for continuing therapy: Dean shows continual improved strength and endurance with exercise with an enthusiasm when performing his exercises. Despite decreased FACT-G scores pt reports that he is doing good functionally and is able to do more at home. Pt has increased confidence in his ability to perform recreational activities with ongoing oncological treatment. At this time pt reports no increased side-effects of treatment. ROM: WFL Strength: MMT B LE: Hip: flexion: B 5/5, Ext: B 5/5, Abd/Add: 5/5. Knee: L 4/5, R 5/5. Ankle: PF/DF: B 5/5 Special Tests: ECOG Performance Status: Grade 1 FACT-G (Initial Eval 06/23/17): PWB: 24, SWB: 25.7/, EWB: , FWB: , Total Score: 86.7/108 FACT-G 08/20/17: PWB: 24/, SWB: 24/, EWB: , FWB: , Total Score: 83 /108 FACT-G 10/01/17: PWB: , SWB: , EWB: , FWB: 22.2, Total Score: 93.2/108 FACT-G 10/22/17: PWB: , SWB: 24.5, EWB: , FWB: , Total Score: 91.5/108 Edema: B Distal LE pitting edema evident. If you have any questions or concerns, please feel free to contact me at . Thank you, Taylor Piedra, PT, DPT, CLT MTDD
[~2017-11-26 13:45] MED LIST changes: -ALTEPLASE RECOMB 2 MG VIAL IVP PRN; -DEXTROSE 5%(*) 100 ML BAG 100 ML IVPB PRN; -GEMCITABINE IVPB ONE; -LIDOCAINE/SOD BICARB 8.4% SYR ID PRN; -NS 0.9% IVPB ONE; -NS(*) 0.9% 100 ML BAG 100 ML IVPB PRN; -WATER STERILE 10 ML VIAL IVP PRN; -[UNRECOGNIZED DRUG - OTHER] IVPB ONE
--- NOTE | 2017-11-27 08:17 | PT PLAN OF CARE ---
Physician: ELIZABETH PEREIRA MD Patient is being seen: 1x/Week Therapist: Taylor Piedra, PT, DPT, CLT Medical Diagnosis: Pancreatic Adenocarcinoma Treatment Diagnosis: Pancreatic Adenocarcinoma, Generalized Weakness Date of Onset: 06/23/17 Date of Initial Evaluation: 06/23/17 Date patient was last seen: 11/27/17 Number of treatments: 10 Number of cancellations/No shows: 0 INTERVENTIONS: Manual Therapy/STM/MET Strengthening/condition Ice/Heat Range of Motion Spinal Stabilization Ultrasound Stretching Iontophoresis Neuromuscular Re-ed Closed Chain Program Electrical Stim Posture/Body mechanics Gait Trg/Balance Trg Biofeedback Home Exercise Program Mech./Manual Traction Therapeutic Activities Pelvic Floor GOALS: In 3 MO pt will increase ECOG performance status to grade 2 indicating improved function as well as to decrease side-effects from ongoing oncological intervention. MET In 6 MO pt will maintain FACT-G score of >80/108 indicating maintenance of functional status with ADL's. MET In 6 MO pt will maintain strength of >4/5 in all LE MMT for improved function with ADL's. MET PATIENT'S GOAL: Gain muscle mass and weight, maintain function. Status of Patient's Goals: In Progress Patient Compliance: Excellent Prognosis: Fair Reasons for discharge from therapy: Dean is to discharge from physical therapy at this time secondary to completion of 3/3 functional goals and the completion of oncology intervention. Upon discharge pt shows improved strength and function compared to initial evaluation and has no reported restrictions on ADL' s or pain. Pt has improved his activity level substantially and now exercises regularly. Pt currently has no reported side-effects of oncology intervention. Strength: MMT B LE: Hip: flexion: B 5/5, Ext: B 5/5, Abd/Add: 5/5. Knee: Flexion /Ext: B 5/5. Ankle: PF/DF: B 5/5 Special Tests: ECOG Performance Status: Grade 0 FACT-G (Initial Eval 06/23/17): PWB: 24/, SWB: 25.7/, EWB: , FWB: , Total Score: 86.7/108 FACT-G 08/20/17: PWB: 24/, SWB: 24/, EWB: , FWB: , Total Score: 83 /108 FACT-G 10/01/17: PWB: , SWB: , EWB: , FWB: 22.2, Total Score: 93.2/108 FACT-G 10/22/17: PWB: , SWB: 24.5, EWB: , FWB: , Total Score: 91.5/108 FACT-G 11/26/17: PWB: , SWB: 23.3, EWB: , FWB: , Total Score: 88.3/108 Edema: Pt wearing B compression stockings If you have any questions or concerns, please feel free to contact me at [phone]. Thank you, Taylor Piedra, PT, DPT, CLT MTDD
== END 2017-11-26 18:00 | disposition home or self-care (01) ==
LOC: PT 13:45
PROVIDERS: ATTEND Internal Medicine Hematology
DX: C25.9 Malignant neoplasm of pancreas, unspecified (principal); M62.81 Muscle weakness (generalized)

== ENCOUNTER 2018-02-11 10:20 | Outpatient (RCR) | payer MEDICARE ==
[2017-12-03 12:51] VITALS: BP 151/83
[2017-12-03 13:04] LABS: PLATELET COUNT, AUTOMATED 146 K/uL (150-450)
[2017-12-10 12:51] VITALS: BP 123/79
[2017-12-10 14:42] LABS: PLATELET COUNT, AUTOMATED 473 K/uL (150-450)
[2017-12-10] MEDS: HEPARIN FLSH (PORT) 500 UN/5ML IVP PRN (15:20)
--- NOTE | 2017-12-10 16:04 | RADIOLOGY IMAGING REPORT ---
FACILITY: [facility] [place] PATIENT NAME: Dean Spears : 1940 MR: [id number] V: [id number] EXAM DATE: ORDERING PHYSICIAN: NAMAN KAUR TECHNOLOGIST: Location: [facility] Patient: Dean Spears : 1940 Visit/Account:[id number] Date of Sevice: 12/10/2017 CT scan of the chest, abdomen, and pelvis with contrast. HISTORY: Pancreatic cancer status post Whipple procedure. COMPARISON: 06/05/2017. 3 mm thick and [address] images were obtained of the chest, abdomen, and pelvis using 75 mL intravenous Isovue-370. No oral contrast. One of the following dose optimization techniques was ut ilized in the performance of this exam: Automated exposure control; adjustment of the mA and/or kV ac cording to the patient's size; or use of an iterative reconstruction technique. Specific details ca n be referenced in the facility's radiology CT exam operational policy. FINDINGS: The lungs are voluminous. Mild streaky densities are present in the lung bases. Three small nodules measuring less than 6 mm in diameter are present in the lateral aspect of the left upper lobe, uncha nged. One of the nodules is calcified. The trachea and central bronchi are mildly ectatic. The tho racic aorta and coronary arteries are calcified. The heart is mildly enlarged. Several small lymph nodes measuring less than 1.5 cm in diameter are scattered in the mediastinum. No bulky hilar or med iastinal adenopathy. Mild gynecomastia is present bilaterally. No pleural fluid. A right chest pow er port terminates in the superior vena cava at the superior cavoatrial junction. The liver and spleen are normal in size. The gallbladder is absent. Patchy areas of slightly decrea sed attenuation measuring less than 1.5 cm in diameter are present in the medial aspect of the right liver lobe. Air is present within the intrahepatic bile ducts. The pancreatic body and tail are sma ll. The pancreas duct is not dilated. The head of the pancreas has been resected. The gastric antr um and duodenal bulb probably been resected. Metal clips are present in the upper abdomen. The jerry marcus remnant has thickened folds which may be due to incomplete distention. Gas and fluid collections are present in the pancreatic bed and sabrina hepatis probably representing the efferent Ramón-en-Y loo p. This area is difficult to evaluate without oral contrast. The abdominal aorta and iliac arteries are calcified and mildly ectatic. The splenic vein and portal vein are patent. Filling defects are no longer identified in the superior mesenteric vein. The mesenteric vessels have a slight swirling pattern. The kidneys are normal in size. An 8 mm low-density lesion is present in the upper pole o f the right kidney, essentially unchanged. The adrenal glands are upper limits of normal in size antonia aterally. Several lymph nodes measuring up to 1.2 cm in diameter are present in the retroperitoneum at the level of the pancreatic bed. Moderate amounts of stool and gas are scattered in the colon and rectum. The prostate gland is parti ally calcified. The urinary bladder is not opacified or distended. Unopacified bowel loops are scat tered in the abdomen and pelvis. Degenerative changes are present in the spine and hips. Postsurgic al changes are present in the anterior abdominal wall. IMPRESSION: Three left lung nodules, probably benign. Absent gallbladder. Heterogeneous areas in the right liver lobe suggesting focal fatty infiltration and/or scarring. Hep atic metastatic disease is not excluded. Status post Whipple procedure with normal postsurgical changes in the pancreatic bed and sabrina hepati s. Mildly prominent retroperitoneal lymph nodes which may be reactive. Metastatic adenopathy is not exc luded. Small left lung nodules, probably benign, unchanged. 8 mm right renal angiomyolipoma, unchanged. Moderate colonic obstipation. Atherosclerosis. COPD. Mild cardiomegaly. Report Dictated By: Mina Xavier MD at 12/10 2017 3:33 PM Report E-Signed By: Mina Xavier MD at 12/10/2017 4:00 PM WSN:[email or web address]
[2017-12-17 13:31] VITALS: BP 123/75
[2017-12-17 13:42] LABS: PLATELET COUNT, AUTOMATED 560 K/uL (150-450)
--- NOTE | 2017-12-18 16:10 | ONCOLOGY FOLLOW UP NOTE ---
EVENT DATE: December 17, 2017 REASON FOR FOLLOWUP Stage II pancreatic adenocarcinoma, status post completion of adjuvant gemcitabine chemotherapy. CHIEF COMPLAINT Insomnia, urinary frequency. INTERIM HISTORY Dean returns to clinic for a follow-up visit today. He is accompanied by his . Since our last visit, he has completed adjuvant gemcitabine therapy, and he has gone for a follow-up CT scan of the chest, abdomen and pelvis for disease assessment. Symptomatically, he continues to do about the same. He does have some chronic and ongoing musculoskeletal pain. He reports no abdominal pain, but he does have diarrhea when he snacks and forgets to take his pancreatic enzymes. He has ongoing urinary frequency. His sleep quality continues to be fairly poor. He reports some fatigue, but in general he feels that his quality of life is pretty good. He has had some swelling in his legs, and he is using compression stockings to effect. These have been comfortable for him. REVIEW OF SYSTEMS Otherwise negative, and all systems were reviewed. ONCOLOGY HISTORY Stage IIB pancreatic adenocarcinoma. a. Initial presentation with several months of progressive weight loss, fatigue, and change in stool color. He was noted by his PCP to have scleral icterus. Labs were drawn, revealing elevated bilirubin. CT scan at that time showed concern for a pancreatic mass. He was then referred to Dr. Moody for surgical management. b. May 09, 2017: CT of the abdomen and pelvis revealed 2.7 cm poorly defined mid pancreatic head mass, marked dilatation of bile ducts and main pancreatic duct; no CT evidence of vascular encasement or metastatic disease. c. May 09, 2017: Patient undergoes ERCP, sphincterotomy, and bilateral stent placement. Bile duct biopsy performed at that time showed no evidence of malignancy. d. May 10, 2017: CA 19-9 = 445. e. May 10, 2017: CT chest shows calcified granuloma in lingula, as well as an adjacent small cluster of micronodular densities up to 5 mm, felt to be inflammatory. There was no definitive evidence of metastatic disease. f. May 14, 2017: Patient undergoes Whipple procedure and port placement. 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 Perineural invasion was present, but no lymphovascular invasion was noted. Five of 37 lymph nodes were positive for metastatic disease. g. May 02, 2017: Patient is noted to have elevated white blood cell count , and abnormal liver function tests. h. June 05, 2017, CT chest, abdomen and pelvis: Post surgical changes from Whipple procedure. Anastomosis is narrowed; stomach is very distended with fluid and particulate material. There is some edema of proximal small bowel loops. There appear to be several small filling defects likely representing thrombi in the mid to distal branches of the mesenteric vein. Diffuse hepatic steatosis is present. Three pulmonary nodules in the left upper lobe measuring up to 4 mm. One of these is calcified, two adjacent noncalcified nodules could represent granulomatous disease. i. June 2017: Initiation of adjuvant gemcitabine chemotherapy. j. December 10, 2017, CT chest, abdomen and pelvis: Three left lung nodules, likely benign; absent gallbladder; heterogeneous areas on the right liver lobe suggesting focal fatty infiltration and/or scarring; evidence of prior Whipple procedure; mildly prominent retroperitoneal lymph nodes which may be reactive. PAST MEDICAL HISTORY 1. Benign prostatic hyperplasia. 2. Hypertension. PAST SURGICAL HISTORY 1. Whipple procedure, as above. 2. ERCP with stent placement, as above. 3. History of colon surgery. 4. History of eye surgery. 5. History of wisdom tooth extraction. SOCIAL HISTORY The patient is a never smoker. He rarely drinks alcohol. There is no history of illicit drug use. FAMILY HISTORY Noncontributory. CURRENT MEDICATIONS 1. Tylenol p.r.n. 2. Mirtazapine p.r.n. 3. Creon with meals and snacks. 4. Zofran p.r.n. 5. Docusate p.r.n. 6. Oxycodone/acetaminophen p.r.n. 7. Calcium supplement. 8. Pantoprazole. 9. Multivitamin. 10. Finasteride. 11. Vitamin D2 supplement. ALLERGIES No known drug allergies. VITAL SIGNS Temperature is 96.1, blood pressure 123/75, pulse is 75, respirations 16, oxygen saturation is 91% on room air. Weight is 133.8 pounds. PHYSICAL EXAMINATION GENERAL: Patient is alert and oriented times three, in no apparent distress, sitting in the exam room chair. HEENT: Exam reveals anicteric sclerae. NEUROLOGIC: Exam is grossly nonfocal, and his gait is normal. EXTREMITIES: Exam reveals some edema of the bilateral lower extremities. He is wearing compression stockings. SKIN: Exam reveals no concerning rash or lesion. LABORATORY STUDIES Reviewed per the [facility] record. IMAGING Please see oncology history. ASSESSMENT AND PLAN Stage II pancreatic adenocarcinoma. I had a good visit with Dean and his today. Symptomatically, he continues to do pretty well. He feels about the same as he had felt while receiving chemotherapy. He does continue to have some fatigue, urinary frequency, and sleep disruption. We spent the vast majority of our time today discussing the results of his follow-up CT scan. There are no definitive findings on this study to suggest recurrence of pancreatic cancer. He does have some slightly elevated enlarged retroperitoneal lymph nodes, and an area in the liver that appears to be fatty change. We discussed the merits of additional imaging to evaluate these nodes and liver. A CT/PET scan would be reasonable, but I think an MRI of the liver to be performed locally would also be quite reasonable to make sure that we are not seeing definitive evidence of hepatic metastatic disease. Dean agrees to this. I will plan to see him back in one month for followup, or sooner if there are concerning findings on his upcoming abdominal MRI with liver protocol. If his MRI is not concerning, we will plan to have routine followup after in three months after a repeat CT scan here in [place]. Dean had several additional questions for me today, and I believe I answered all these questions to his satisfaction. BOUCHRA
[2017-12-22] MEDS: HEPARIN FLSH (PORT) 500 UN/5ML IVP PRN (08:12)
--- NOTE | 2017-12-22 11:35 | RADIOLOGY IMAGING REPORT ---
FACILITY: [facility] PATIENT NAME: Dean Spears : 1940 MR: [id number] V: [id number] EXAM DATE: ORDERING PHYSICIAN: NAMAN KAUR TECHNOLOGIST: [place] [facility] [place] : 1940 Visit/Account:[id number] Date of Sevice: 12/22/2017 ABDOMEN MR W W/O CONTRAST HISTORY: Pancreatic cancer, Whipple surgery ADDITIONAL HISTORY: None. TECHNIQUE: TECHNIQUE: Multiplanar multisequence magnetic resonance imaging of the abdomen without a nd with intravenous contrast. CONTRAST: 15 mL of MultiHance COMPARISON: CT chest abdomen pelvis December 10, 2017 FINDINGS: Visualized lung bases: Grossly unremarkable. Liver: Negative. Gallbladder: Surgically absent Bile ducts: Nondistended and unremarkable. Spleen: Negative. Adrenal glands: Negative. Pancreas: There are postsurgical changes from a Whipple procedure with resection of the pancreatic he ad. The pancreatic body and tail are severely atrophic Kidneys: Duplicated left renal collecting system Vessels/spaces/nodes: Several small retroperitoneal lymph nodes at the level of the pancreatic bed ap pears stable Visualized GI: Postsurgical changes from a Whipple Bones/soft tissues: Levoconvex scoliosis lumbar spine with spondylotic changes IMPRESSION: Post surgical changes from a Whipple procedure. Several mildly prominent retroperitoneal lymph nodes in the pancreatic bed have remained stable Report Dictated By: Yazmin Newman MD at 12/22/2017 11:07 AM Report E-Signed By: Yazmin Newman MD at 12/22/2017 11:32 AM WSN:[email or web address]
[2018-01-14] MEDS: HEPARIN FLSH (PORT) 500 UN/5ML IVP PRN (10:39)
[2018-01-14 12:31] VITALS: BP 115/70
[~2018-02-11 10:20] MED LIST changes: +ALTEPLASE RECOMB 2 MG VIAL IVP PRN; +DEXTROSE 5%(*) 100 ML BAG 100 ML IVPB PRN; +GADOBENATE 529MG/1ML 15ML VIAL IVP ONE; +IOPAMIDOL 76% 75 ML INFUS BTL 75 ML ONE; +LIDOCAINE/SOD BICARB 8.4% SYR ID PRN; +NS 0.9% 20 ML SDV 40 ML ONE; +NS(*) 0.9% 100 ML BAG 100 ML IVPB PRN; +NS(*) 0.9% 500 ML BAG 500 ML IV PRN; +WATER FOR INJ,STERILE 20 ML IVP PRN
[2018-02-11 10:25] VITALS: BP 113/79
[2018-02-11] MEDS: HEPARIN FLSH (PORT) 500 UN/5ML IVP PRN (10:31)
== END 2018-03-02 ==
LOC: SPU 10:20
PROVIDERS: ATTEND Internal Medicine Medical Oncology
DX: C25.9 Malignant neoplasm of pancreas, unspecified (principal); R91.8 Other nonspecific abnormal finding of lung field; R93.2 Abnormal findings on diagnostic imaging of liver and biliary tract; R59.0 Localized enlarged lymph nodes; I51.7 Cardiomegaly; J44.9 Chronic obstructive pulmonary disease, unspecified
CPT/HCPCS: 36415; 71260; 74177; 74183; 85025; 86301; 96523; A9577; G0463; J1642; J7050; Q9967; 82040; 82247; 82310; 82374; 82435; 82565; 82947; 84075; 84132; 84155; 84295; 84450; 84460; 84520; 99212

== ENCOUNTER 2018-03-06 15:16 | Emergency (ER) | payer MEDICARE ==
[~2018-03-06 15:16] MED LIST changes: -ALTEPLASE RECOMB 2 MG VIAL IVP PRN; -DEXTROSE 5%(*) 100 ML BAG 100 ML IVPB PRN; -GADOBENATE 529MG/1ML 15ML VIAL IVP ONE; -IOPAMIDOL 76% 75 ML INFUS BTL 75 ML ONE; -LIDOCAINE/SOD BICARB 8.4% SYR ID PRN; -NS 0.9% 20 ML SDV 40 ML ONE; -NS(*) 0.9% 100 ML BAG 100 ML IVPB PRN; -NS(*) 0.9% 500 ML BAG 500 ML IV PRN; -WATER FOR INJ,STERILE 20 ML IVP PRN
--- NOTE | 2018-03-06 15:21 | ER Report ---
History and Physical Time Seen By MD: 15:20 HPI/ROS CHIEF COMPLAINT: Surveillance imaging findings HISTORY OF PRESENT ILLNESS: Patient is a 77-year-old male here after having surveillance imaging and labs drawn for routine follow-up from the patient's cancer Center doctor. Patient had a CT scan of the abdomen and pelvis and was sent in for evaluation for possible appendicitis. Patient had a Whipple procedure done in the past year. Patient denies abdominal pain, nausea, vomiting , fevers or chills, right lower quadrant discomfort. Patient has tolerating oral intake passing bowel movements urinating without issue. Patient is hemodynamically stable at time of evaluation in no acute distress. REVIEW OF SYSTEMS: Constitutional: No fever, no chills. Eyes: No discharge. ENT: No sore throat. Cardiovascular: No chest pain, no palpitations. Respiratory: No cough, no shortness of breath. Gastrointestinal: No abdominal pain, no vomiting. Genitourinary: No hematuria. Musculoskeletal: No back pain. Skin: No rashes. Neurological: No headache. Allergies: Coded Allergies: No Known Drug Allergies (Verified , 07/19/08) Home Meds Active Scripts Finasteride (FINASTERIDE) 5 Mg Tablet, 1 TAB PO QDAY, #90 TAB 3 Refills Prov:JAMEEL KEYES MD 02/05/18 Docusate Sodium (DOCUSATE SODIUM) 100 Mg Tablet, 1 TAB PO BID, #30 TAB 0 Refills Prov:ROSALEE WONG MD 06/20/17 Reported Medications Acetaminophen (TYLENOL) 325 Mg Tablet, 325 MG PO PRN for Sleep, TAB 11/12/17 Lipase/Protease/Amylase (CREON DR 12,000 UNITS CAPSULE) 1 Each Capsule.dr, 1 EACH PO DIRECTED 07/02/17 Calcium Carbonate (CALCIUM) 600 Mg Tablet, 600 MG PO QDAY 06/18/17 Multivitamin (MULTI VITAMIN DAILY) 1 Each Tablet, 1 EACH PO 06/04/17 Ergocalciferol (Vitamin D2) (VITAMIN D2) 400 Unit Tablet, 2 TAB PO QDAY 09/09/14 Hx Smoking: No Smoking Status: Never Smoker Hx Alcohol Use: Yes Physical Exam General Appearance: The patient is alert, has no immediate need for airway protection and no signs of toxicity. NAD Eyes: Pupils equal and round no pallor or injection. ENT, Mouth: Mucous membranes are moist. Respiratory: There are no retractions, lungs are clear to auscultation. Cardiovascular: Regular rate and rhythm. Gastrointestinal: Abdomen is soft and non tender, no masses, bowel sounds normal. Neurological: No focal neurological deficits Skin: Warm and dry, no rashes. Musculoskeletal: Neck is supple non tender. Extremities are nontender, nonswollen and have full range of motion. DIFFERENTIAL DIAGNOSIS: After history and physical exam differential diagnosis was considered for abdominal pain including but not limited to appendicitis, cholecystitis, gastritis and urinary tract infection. Medical Decision Making EKG/Imaging Imaging Location: [facility] [place] Patient: Rosalee Spears : 1940 Visit/Account:[id number] Date of Sevice: 03/06/2018 ADDENDUM #1 The appendix is fluid-filled and mildly dilated at 8.4 mm. No surrounding inflammatory changes seen. Mild appendicitis not totally excluded. Clinical correlation needed. Results were called to NAMAN KAUR's PA at 03/06/2018 2:46 PM. Report Dictated By: Yazmin Newman MD at 03/06/2018 2:40 PM Report E-Signed By: Yazmin Newman MD at 03/06/2018 2:46 PM ORIGINAL REPORT CHEST/AB/PELV W/CONTRAST HISTORY: Pancreatic cancer, history of Whipple surgery ADDITIONAL HISTORY: None. TECHNIQUE: Following administration of IV contrast axial images acquired through the chest abdomen and pelvis during the portal venous phase. Coronal and sagittal reformatting was also performed. Dose Lowering Technique One of the following dose optimization techniques was utilized in the performance of this exam: Automated exposure control; adjustment of the mA and/ or kV according to the patient's size; or use of an iterative reconstruction technique. Specific details can be referenced in the facility's radiology CT exam operational policy. CONTRAST: 75 mL Isovue-370 COMPARISON: December 10, 2017 FINDINGS: CHEST: Lungs/Pleura: The previously noted three nodules in the lateral aspect left upper lobe appear unchanged in size measuring up to 6 mm. As previously noted one the of the nodules is calcified. No new nodules are seen small amount scarring in the lung bases appears unchanged. Mediastinum/lymph nodes: Is a 1.4 x 0.8 cm right hilar lymph node present. This appears stable Heart/vessels: Calcifications are noted in the coronary arteries and at the root of the aorta. Moderate callus occasions also noted in the descending thoracic aorta and aortic arch. There is an implanted right IJ catheter the distal tip is in the superior vena cava. Bones/soft tissues: No aggressive appearing bone lesions are seen ABDOMEN AND PELVIS: Hepatobiliary: There are several tiny cortical hypodensities along the medial surface right lobe the liver that appear unchanged. There are postsurgical changes from a Whipple procedure with the small amount of pneumobilia Spleen: Negative. Pancreas: There are postsurgical changes from a Whipple procedure. Of the body and tail the pancreas appears severely atrophic. The pancreatic duct measures up to 2 mm. There is a lobular soft tissue density seen in the previous location of the pancreatic head extends anterior and laterally towards the liver . This appears to impart be related to bowel as bowel was located in this region on the prior CT however the bowel is not well outlined with enteric contrast or air possibility of francisco javier masses were to recurrence cannot be totally excluded. Adrenals: There is mild thickening the adrenal glands bilaterally Kidneys ureters and bladder : Tiny hypodensity upper pole of the right kidney has remained stable Genitalia: Prostate gland is mildly enlarged impinging upon the floor the bladder GI: Postoperative changes from a Whipple procedure. There is an anastomotic staple line seen in the distal sigmoid colon Vessels/spaces/nodes: There are multiple shotty retroperitoneal lymph nodes appearing similar to the prior study . There are at least moderate vascular calcifications throughout the chest abdomen pelvis Bones/soft tissues: There are spondylotic changes of the lumbar spine. No aggressive appearing bone lesions are seen Additional findings: None pertinent. IMPRESSION: Previous seen noted three left-sided lung nodules have remained stable. At least one of these is calcifie Postsurgical changes from a Whipple procedure. There is a lobular soft tissue density material seen in the previous location of the pancreatic head extending anterolaterally towards the liver. This could represent bowel loops from patient's Whipple procedure however the bowel is not well opacified in this location with contrast or air and possibility of francisco javier masses or tumor recurrence not excluded. Given the above findings and the history of pancreatic cancer a dedicated CT or MR through the pancreas with and without contrast including water as the enteric contrast if CT is considered for further characterization of this area. Additional chronic findings as described ED Course/Re-evaluation ED Course Patient is a 77-year-old male here with complaints of being sent in after routine imaging and lab work status post Whipple procedure for pancreatic cancer. Patient was sent in for evaluation due to indeterminate findings on CT imaging. I contacted cancer Center doctor who reported that she sent the patient and after receiving radiologic report that was concerning for appendicitis. Patient denies having symptoms consistent with appendicitis. On physical exam patient had no abdominal discomfort, fevers,PO intolerance, nausea , vomiting. I discussed the findings with the patient and he voices understanding that if he developed these symptoms that he should return promptly. Labs were unremarkable. Patient agreed to return promptly if he develops symptoms consistent with appendicitis. Patient was well-appearing and hemodynamically stable at time of discharge Decision to Disposition Date: Mar 06, 2018 Decision to Disposition Time: 16:00 Depart Departure Impression: Primary Impression: Abdominal discomfort Condition: Condition Unchanged Disposition: HOME OR SELF-CARE Referrals: JAMEEL KEYES MD (PCP) Patient Instructions: Abdominal Pain (ED) Additional Instructions: You were evaluated today due to concern for radiographic findings on your CT report that were concerning for abdominal infection or appendicitis. Please return promptly if you develop right lower quadrant abdominal pain, nausea, abdominal discomfort, vomiting, fevers or chills immediately. Please keep all scheduled appointments. WOODY CHRISTOPHER DO Mar 06, 2018 15:21
== END 2018-03-06 16:21 | disposition home or self-care (01) ==
LOC: ER 15:25
DX: R10.9 Unspecified abdominal pain (principal); Z79.899 Other long term (current) drug therapy
CPT/HCPCS: 99281

== ENCOUNTER 2018-05-06 09:52 | Outpatient (RCR) | payer MEDICARE ==
[2018-03-06 10:32] VITALS: BP 124/77
[2018-03-06 10:39] LABS: PLATELET COUNT, AUTOMATED 230 K/uL (150-450)
[2018-03-06 12:43] VITALS: BP 144/83
[2018-03-06] MEDS: HEPARIN FLSH (PORT) 500 UN/5ML IVP PRN (12:55)
--- NOTE | 2018-03-06 14:01 | RADIOLOGY IMAGING REPORT ---
FACILITY: [facility] PATIENT NAME: Dean Spears : 1940 MR: [id number] V: [id number] EXAM DATE: ORDERING PHYSICIAN: NAMAN KAUR TECHNOLOGIST: Location: [facility] [place] Patient: Dean Spears : 1940 Visit/Account:[id number] Date of Sevice: 03/06/2018 ADDENDUM #1 The appendix is fluid-filled and mildly dilated at 8.4 mm. No surrounding inflammatory changes seen. Mild appendicitis not totally excluded. Clinical correlation needed. Results were called to NAMAN KAUR's PA at 03/06/2018 2:46 PM. Report Dictated By: Yazmin Newman MD at 03/06/2018 2:40 PM Report E-Signed By: Yazmin Newman MD at 03/06/2018 2:46 PM ORIGINAL REPORT CHEST/AB/PELV W/CONTRAST HISTORY: Pancreatic cancer, history of Whipple surgery ADDITIONAL HISTORY: None. TECHNIQUE: Following administration of IV contrast axial images acquired through the chest abdomen a nd pelvis during the portal venous phase. Coronal and sagittal reformatting was also performed. Dose Lowering Technique One of the following dose optimization techniques was utilized in the performance of this exam: Autom ated exposure control; adjustment of the mA and/or kV according to the patient's size; or use of an i terative reconstruction technique. Specific details can be referenced in the facility's radiology C T exam operational policy. CONTRAST: 75 mL Isovue-370 COMPARISON: December 10, 2017 FINDINGS: CHEST: Lungs/Pleura: The previously noted three nodules in the lateral aspect left upper lobe appear unchan ged in size measuring up to 6 mm. As previously noted one the of the nodules is calcified. No new n odules are seen small amount scarring in the lung bases appears unchanged. Mediastinum/lymph nodes: Is a 1.4 x 0.8 cm right hilar lymph node present. This appears stable Heart/vessels: Calcifications are noted in the coronary arteries and at the root of the aorta. Mode rate callus occasions also noted in the descending thoracic aorta and aortic arch. There is an impla nted right IJ catheter the distal tip is in the superior vena cava. Bones/soft tissues: No aggressive appearing bone lesions are seen ABDOMEN AND PELVIS: Hepatobiliary: There are several tiny cortical hypodensities along the medial surface right lobe the liver that appear unchanged. There are postsurgical changes from a Whipple procedure with the small amount of pneumobilia Spleen: Negative. Pancreas: There are postsurgical changes from a Whipple procedure. Of the body and tail the pancrea s appears severely atrophic. The pancreatic duct measures up to 2 mm. There is a lobular soft tissu e density seen in the previous location of the pancreatic head extends anterior and laterally towards the liver . This appears to impart be related to bowel as bowel was located in this region on the prior CT however the bowel is not well outlined with enteric contrast or air possibility of francisco javier mas ses were to recurrence cannot be totally excluded. Adrenals: There is mild thickening the adrenal glands bilaterally Kidneys ureters and bladder : Tiny hypodensity upper pole of the right kidney has remained stable Genitalia: Prostate gland is mildly enlarged impinging upon the floor the bladder GI: Postoperative changes from a Whipple procedure. There is an anastomotic staple line seen in th e distal sigmoid colon Vessels/spaces/nodes: There are multiple shotty retroperitoneal lymph nodes appearing similar to the prior study . There are at least moderate vascular calcifications throughout the chest abdomen pel vis Bones/soft tissues: There are spondylotic changes of the lumbar spine. No aggressive appearing bone lesions are seen Additional findings: None pertinent. IMPRESSION: Previous seen noted three left-sided lung nodules have remained stable. At least one of these is osvaldo cifie Postsurgical changes from a Whipple procedure. There is a lobular soft tissue density material seen in the previous location of the pancreatic head extending anterolaterally towards the liver. T his could represent bowel loops from patient's Whipple procedure however the bowel is not well opacif ied in this location with contrast or air and possibility of francisco javier masses or tumor recurrence not exc luded. Given the above findings and the history of pancreatic cancer a dedicated CT or MR through th e pancreas with and without contrast including water as the enteric contrast if CT is considered for further characterization of this area. Additional chronic findings as described Report Dictated By: Yazmin Newman MD at 03/06/2018 1:27 PM Report E-Signed By: Yazmin Newman MD at 03/06/2018 1:56 PM WSN:[email or web address]
--- NOTE | 2018-03-06 15:11 | Oncology Note ---
[facility] Patient History: Colorectal cancer MOTHER, , Age:61 (questionable) FH: CHF (congestive heart failure) FATH[place] ( [place]), FH: asthma FATHER ( [place]), ( OF [place]) FH: renal cell carcinoma SISTER Social/Occupational History Social History: Social History This is a 77 Yr old White male, he is M and has [] Children Hx Smoking: No Smoking Status: Never Smoker Allergies & Medications Allergies: Coded Allergies: No Known Drug Allergies (Verified , 07/19/08) Home Meds Active Scripts Finasteride (FINASTERIDE) 5 Mg Tablet, 1 TAB PO QDAY, #90 TAB 3 Refills Prov:JAMEEL KEYES MD 02/05/18 Docusate Sodium (DOCUSATE SODIUM) 100 Mg Tablet, 1 TAB PO BID, #30 TAB 0 Refills Prov:ROSALEE WONG MD 06/20/17 Reported Medications Acetaminophen (TYLENOL) 325 Mg Tablet, 325 MG PO PRN for Sleep, TAB 11/12/17 Lipase/Protease/Amylase (CREON DR 12,000 UNITS CAPSULE) 1 Each Capsule.dr, 1 EACH PO DIRECTED 07/02/17 Calcium Carbonate (CALCIUM) 600 Mg Tablet, 600 MG PO QDAY 06/18/17 Multivitamin (MULTI VITAMIN DAILY) 1 Each Tablet, 1 EACH PO 06/04/17 Ergocalciferol (Vitamin D2) (VITAMIN D2) 400 Unit Tablet, 2 TAB PO QDAY 09/09/14 Telephone Notification. Date 03/06/2018 Time: 1500PM. Mr. Tory Moran, is a 77 year old man who has Stage II pancreatic adenocarcinoma , status post completion of adjuvant gemcitabine chemotherapy. Patient was called and instructed to make his way to ER for further GI work up. Further work up evaluation of Appendix, appendicitis. as revealed on following incidental finding on CT. patient understands rationale for further work up .He agreed to go to the Er NOW. for further work up. he denies any abdominal pain, no nausea, no vomiting, no RLQ pain, no low grade fever, no palpitations. CONTRAST: 75 mL Isovue-370 COMPARISON: December 10, 2017 FINDINGS: CHEST: Lungs/Pleura: The previously noted three nodules in the lateral aspect left upper lobe appear unchanged in size measuring up to 6 mm. As previously noted one the of the nodules is calcified. No new nodules are seen small amount scarring in the lung bases appears unchanged. Mediastinum/lymph nodes: Is a 1.4 x 0.8 cm right hilar lymph node present. This appears stable Heart/vessels: Calcifications are noted in the coronary arteries and at the root of the aorta. Moderate callus occasions also noted in the descending thoracic aorta and aortic arch. There is an implanted right IJ catheter the distal tip is in the superior vena cava. Bones/soft tissues: No aggressive appearing bone lesions are seen ABDOMEN AND PELVIS: Hepatobiliary: There are several tiny cortical hypodensities along the medial surface right lobe the liver that appear unchanged. There are postsurgical changes from a Whipple procedure with the small amount of pneumobilia Spleen: Negative. Pancreas: There are postsurgical changes from a Whipple procedure. Of the body and tail the pancreas appears severely atrophic. The pancreatic duct measures up to 2 mm. There is a lobular soft tissue density seen in the previous location of the pancreatic head extends anterior and laterally towards the liver . This appears to impart be related to bowel as bowel was located in this region on the prior CT however the bowel is not well outlined with enteric contrast or air possibility of francisco javier masses were to recurrence cannot be totally excluded. Adrenals: There is mild thickening the adrenal glands bilaterally Kidneys ureters and bladder : Tiny hypodensity upper pole of the right kidney has remained stable Genitalia: Prostate gland is mildly enlarged impinging upon the floor the bladder GI: Postoperative changes from a Whipple procedure. There is an anastomotic staple line seen in the distal sigmoid colon Vessels/spaces/nodes: There are multiple shotty retroperitoneal lymph nodes appearing similar to the prior study . There are at least moderate vascular calcifications throughout the chest abdomen pelvis Bones/soft tissues: There are spondylotic changes of the lumbar spine. No aggressive appearing bone lesions are seen Additional findings: None pertinent. IMPRESSION: Previous seen noted three left-sided lung nodules have remained stable. At least one of these is calcified Postsurgical changes from a Whipple procedure. There is a lobular soft tissue density material seen in the previous location of the pancreatic head extending anterolaterally towards the liver. This could represent bowel loops from patient's Whipple procedure however the bowel is not well opacified in this location with contrast or air and possibility of francisco javier masses or tumor recurrence not excluded. Given the above findings and the history of pancreatic cancer a dedicated CT or MR through the pancreas with and without contrast including water as the enteric contrast if CT is considered for further characterization of this area. Additional chronic findings as described Report Dictated By: Yazmin Newman MD at 03/06/2018 1:27 PM Report E-Signed By: Yazmin Newman MD at 03/06/2018 1:56 PM [email or web address] MISSY WEISS, ONC Mar 06, 2018 15:11
[2018-03-11 10:12] VITALS: BP 135/78
--- NOTE | 2018-03-11 18:39 | ONCOLOGY FOLLOW UP NOTE ---
EVENT DATE: March 11, 2018 REASON FOR FOLLOWUP Stage II pancreatic adenocarcinoma, status post Whipple and completion of adjuvant gemcitabine chemotherapy. CHIEF COMPLAINT Fatigue, arthralgias. INTERIM HISTORY Dean returns to clinic for a followup visit today. He is accompanied by his . Most recently, he had gone for a followup CT scan of the chest, abdomen, and pelvis. There had been some concern on that study for a fluid-filled appendix and the possibility of acute appendicitis. He was contacted by this clinic and eventually evaluated in the Emergency Department. He reports that he has experienced no abdominal pain, fever, nausea, vomiting, or diarrhea whatsoever. No further intervention has been recommended beyond surveillance of symptoms. He reports that he has had some ongoing fatigue, arthralgias, urinary frequency, and some insomnia. Beyond this, things have been pretty stable. He has questions about his CT scan. REVIEW OF SYSTEMS Otherwise negative, and all systems were reviewed. EVENT DATE: December 17, 2017 REASON FOR FOLLOWUP Stage II pancreatic adenocarcinoma, status post completion of adjuvant gemcitabine chemotherapy. CHIEF COMPLAINT Insomnia, urinary frequency. INTERIM HISTORY Dean returns to clinic for a follow-up visit today. He is accompanied by his . Since our last visit, he has completed adjuvant gemcitabine therapy, and he has gone for a follow-up CT scan of the chest, abdomen and pelvis for disease assessment. Symptomatically, he continues to do about the same. He does have some chronic and ongoing musculoskeletal pain. He reports no abdominal pain, but he does have diarrhea when he snacks and forgets to take his pancreatic enzymes. He has ongoing urinary frequency. His sleep quality continues to be fairly poor. He reports some fatigue, but in general he feels that his quality of life is pretty good. He has had some swelling in his legs, and he is using compression stockings to effect. These have been comfortable for him. REVIEW OF SYSTEMS Otherwise negative, and all systems were reviewed. ONCOLOGY HISTORY Stage IIB pancreatic adenocarcinoma. a. Initial presentation with several months of progressive weight loss, fatigue, and change in stool color. He was noted by his PCP to have scleral icterus. Labs were drawn, revealing elevated bilirubin. CT scan at that time showed concern for a pancreatic mass. He was then referred to Dr. Moody for surgical management. b. May 09, 2017: CT of the abdomen and pelvis revealed 2.7 cm poorly defined mid pancreatic head mass, marked dilatation of bile ducts and main pancreatic duct. No CT evidence of vascular encasement or metastatic disease. c. May 09, 2017: Patient undergoes ERCP, sphincterotomy, and bilateral stent placement. Bile duct biopsy performed at that time showed no evidence of malignancy. d. May 10, 2017: CA19-9 = 445. e. May 10, 2017: CT chest shows calcified granuloma in lingula, as well as an adjacent small cluster of micronodular densities up to 5 mm, felt to be inflammatory. There was no definitive evidence of metastatic disease. f. May 14, 2017: Patient undergoes Whipple procedure and port placement. 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 There was invasion of peripancreatic soft tissues at multiple foci, but margins were negative. Perineural invasion was present, but no lymphovascular invasion was noted. Five of 37 lymph nodes were positive for metastatic disease. g. May 02, 2017: Patient is noted to have elevated white blood cell count and abnormal liver function tests. h. June 05, 2017, CT chest, abdomen, and pelvis: Postsurgical changes from Whipple procedure. Anastomosis is narrowed. Stomach is very distended with fluid and particulate material. There is some edema of proximal small bowel loops. There appear to be several small filling defects likely representing thrombi in the mid to distal branches of the mesenteric vein. Diffuse hepatic steatosis is present. Three pulmonary nodules in the left upper lobe measuring up to 4 mm. One of these is calcified. Two adjacent noncalcified nodules could represent granulomatous disease. i. June 2017: Initiation of adjuvant gemcitabine chemotherapy. j. December 10, 2017, CT chest, abdomen, and pelvis: Three left lung nodules, likely benign. Absent gallbladder. Heterogeneous areas on the right liver lobe suggesting focal fatty infiltration and/or scarring. Evidence of prior Whipple procedure. Mildly prominent retroperitoneal lymph nodes which may be reactive. k. November 2017, completion of adjuvant gemcitabine chemotherapy. l. March 06, 2018, CT chest, abdomen, and pelvis: Three left-sided lung nodules are stable. Postsurgical changes from Whipple. Lobular soft tissue density material seen in previous location of pancreatic head extending anterolaterally towards liver. This could represent bowel loops from the patient's Whipple procedure; however, the bowel is not well opacified in this location. Dedicated CT or MR through the pancreas has been recommended. In addition, there was concern for a fluid-filled appendix that was mildly dilated at 8.4 mm. There was no surrounding inflammatory change seen. Mild appendicitis was not totally excluded. PAST MEDICAL HISTORY 1. Benign prostatic hyperplasia. 2. Hypertension. PAST SURGICAL HISTORY 1. Whipple procedure, as above. 2. ERCP with stent placement, as above. 3. History of colon surgery. 4. History of eye surgery. 5. History of wisdom tooth extraction. SOCIAL HISTORY The patient is a never smoker. He rarely drinks alcohol. There is no history of illicit drug use. FAMILY HISTORY Noncontributory. CURRENT MEDICATIONS 1. Tylenol p.r.n. 2. Mirtazapine p.r.n. 3. Creon with meals and snacks. 4. Zofran p.r.n. 5. Docusate p.r.n. 6. Oxycodone/acetaminophen p.r.n. 7. Calcium supplement. 8. Pantoprazole. 9. Multivitamin. 10. Finasteride. 11. Vitamin D2 supplement. ALLERGIES No known drug allergies. VITAL SIGNS Temperature is 96.5, blood pressure 135/78, heart rate is 55, respirations 16, oxygen saturation is 94% on room air. Weight is 59.6 kg. PHYSICAL EXAMINATION GENERAL: Patient is alert and oriented times three, in no apparent distress, sitting in the exam room chair. He is thin. He is quite interactive and pleasant. HEENT: Anicteric sclerae. NEUROLOGIC: Grossly nonfocal, and his gait is somewhat antalgic, but otherwise stable. SKIN: No concerning rash or lesion. EXTREMITIES: No edema, clubbing, or cyanosis. There is no erythema or tenderness to palpation of the extremities. LABORATORY STUDIES Reviewed per the [facility] record. His counts have recovered nicely. His chemistries are unremarkable with the exception of a slightly elevated AST at 40. CA19-9 is low at 18. IMAGING Please see oncology history. ASSESSMENT AND PLAN Stage II pancreatic adenocarcinoma. Dean is doing well symptomatically, basically at his baseline. He has minimal, if any residual side effects from chemotherapy. He does report some expected fatigue, arthralgias, and other chronic symptoms such as urinary frequency and problems sleeping. I spent a good amount of time today discussing his followup CT scan results. This study has revealed no definitive evidence of recurrence, but there was some fullness at the site of the prior pancreatic head with the thought that this presents non-opacified loops of bowel. A dedicated MRI of the abdomen to evaluate this further has been recommended. This will be ordered today as discussed with Dean and his . I will be back in touch with him with the results. There is otherwise no evidence of recurrence, but there had been concern for a fluid- filled, mildly dilated appendix. He has no signs or symptoms whatsoever to suggest acute appendicitis. I have asked him to be on the lookout for any nausea, vomiting, abdominal pain, worsened diarrhea, or fever. He agrees to do so. Our tentative plan today is for him to return to see me in three months after a repeat CT scan of the chest, abdomen, and pelvis, and labs to include CA19-9 in three months. If there are findings of concern on his upcoming MRI, we will need to arrange an expedited followup visit. Dean and his had several additional questions for me today, and I believe I answered all their questions to their satisfaction. BOUCHRA
[2018-03-12] MEDS: HEPARIN FLSH (PORT) 500 UN/5ML IVP PRN (10:01)
--- NOTE | 2018-03-12 17:40 | RADIOLOGY IMAGING REPORT ---
FACILITY: [facility] [place] PATIENT NAME: Dean Spears : 1940 MR: [id number] V: [id number] EXAM DATE: ORDERING PHYSICIAN: NAMAN KAUR TECHNOLOGIST: Location: [facility] Patient: Dean Spears : 1940 Visit/Account:[id number] Date of Sevice: 03/12/2018 EXAMINATION: MRI abdomen without IV contrast MRI abdomen with IV contrast 03/12/2018 9:00 AM HISTORY: Pancreatic cancer. Follow-up levels. TECHNIQUE: Multiplanar multisequence imaging was done before and after intravenous contrast administr ation. Contrast: 15 mL of IV MultiHance COMPARISON STUDIES: CT 03/06/2018. MR 12/22/2017 FINDINGS: Liver / biliary: Gallbladder is absent. Bile ducts are not dilated. There is a wedge-shaped arteria l phase vascular blush in the anterolateral right lobe (series 14, image 29) measuring about 1.8 x 1. 1 cm. This is still subtly hyperenhancing to liver on the final post contrast imaging and there is a pparent diffusion-weighted signal in the location. The morphology of the focus as well as the absenc e of T2 signal myself area of this is a perfusional variation, however. There is a stable small hypo enhancing focus against the capsule in the inferior right lobe (series 16, image 41). There is also tiny cystic focus against the capsular edge of the liver adjacent to the sabrina ((series 3, image 13). Pancreas: Status post pancreatic head resection. No recurrent mass evident within the Whipple bed. Density shown by the recent CT appears to be fluid containing bowel loops by the fluid sensitive MR s equences today. The tail the pancreas is relatively atrophic with borderline prominent duct. Spleen: negative Adrenal glands: negative Kidneys / retroperitoneum: Small renal cortical cysts. Bowel / peritoneum / mesenteries: negative Vessels: negative Musculoskeletal / Body wall: negative Lymph node assessment: Nonspecific peripancreatic lymph nodes. No clear pathologic adenopathy. Lower chest: negative IMPRESSION: 1. Status post Whipple's pancreatic head resection. No recurrent mass within the resection bed. 2. Geographic marginated peripheral enhancing lesion in the right lobe of the liver. Most of the im aging features would favor this is a benign perfusional variation although there does appear to be so me diffusion-weighted signal associated with it. Metastasis is felt less likely but this should be f ollowed. Report Dictated By: Rachid Piper MD at 03/12/2018 5:16 PM Report E-Signed By: Rachid Piper MD at 03/12/2018 5:36 PM WSN:[id number]
[2018-04-08 10:49] VITALS: BP 112/74
[2018-04-08] MEDS: HEPARIN FLSH (PORT) 500 UN/5ML IVP PRN (10:49)
[~2018-05-06 09:52] MED LIST changes: +ALTEPLASE RECOMB 2 MG VIAL IVP PRN; +DEXTROSE 5%(*) 100 ML BAG 100 ML IVPB PRN; +GADOBENATE 529MG/1ML 15ML VIAL IVP ONE; +LIDOCAINE/SOD BICARB 8.4% SYR ID PRN; +NS(*) 0.9% 100 ML BAG 100 ML IVPB PRN; +NS(*) 0.9% 50 ML BAG 50 ML ONE; +NS(*) 0.9% 500 ML BAG 500 ML IV PRN; +WATER FOR INJ,STERILE 20 ML IVP PRN
[2018-05-06 09:56] VITALS: BP 128/76
== END 2018-06-03 ==
LOC: SPU 09:52
PROVIDERS: ATTEND Internal Medicine Medical Oncology
DX: C25.9 Malignant neoplasm of pancreas, unspecified (principal); R91.8 Other nonspecific abnormal finding of lung field; R93.2 Abnormal findings on diagnostic imaging of liver and biliary tract; R59.0 Localized enlarged lymph nodes; I51.7 Cardiomegaly; J44.9 Chronic obstructive pulmonary disease, unspecified; I10 Essential (primary) hypertension
CPT/HCPCS: 71260; 74177; 74183; 85025; 86301; 96523; A9577; G0463; J1642; J7050; Q9967; 82040; 82247; 82310; 82374; 82435; 82565; 82947; 84075; 84132; 84155; 84295; 84450; 84460; 84520; 99212

== ENCOUNTER 2018-06-17 10:52 | Outpatient (RCR) | payer MEDICARE ==
[2018-06-15 10:09] LABS: PLATELET COUNT, AUTOMATED 262 K/uL (150-450)
--- NOTE | 2018-06-15 16:22 | RADIOLOGY IMAGING REPORT ---
FACILITY: [facility] [place] PATIENT NAME: Dean Spears : 1940 MR: [id number] V: [id number] EXAM DATE: ORDERING PHYSICIAN: JAMEEL KEYES TECHNOLOGIST: Location: [facility] Patient: Dean Spears : 1940 Visit/Account:[id number] Date of Sevice: 06/15/2018 CT CHEST ABDOMEN PELVIS W & W/O HISTORY: Pancreatic cancer, Whipple surgery 05/09/2017 ADDITIONAL HISTORY: None. TECHNIQUE: Pre and post administration of IV contrast axial images acquired through the chest abdome n and pelvis during the portal venous phase. Coronal and sagittal reformatting was also performed.Do se Lowering Technique One of the following dose optimization techniques was utilized in the performance of this exam: Autom ated exposure control; adjustment of the mA and/or kV according to the patient's size; or use of an i terative reconstruction technique. Specific details can be referenced in the facility's radiology C T exam operational policy. CONTRAST: 69 mL Isovue-370 and 800 mL of water as an oral contrast COMPARISON: March 06, 2018 FINDINGS: CHEST: Lungs/Pleura: Mild fibrotic changes of the right pulmonary apex appears unchanged. The previously noted three pulmonary nodules in the left upper lobe measuring up to 6 mm have remaine d stable. One of these nodules is calcified no new pulmonary nodules are seen. Small amount scarrin g in the lung bases appears unchanged Mediastinum/lymph nodes: 1.4 x 0.8 cm right hilar lymph node remains stable Heart/vessels: There is a small volume pulmonary emboli in the segmental and subsegmental arterial b ranches to the right upper lobe. There is an implanted right-sided port distal tip in superior vena cava. Moderate calcifications are present throughout the thoracic aorta and branch vessels including the coronary arteries Bones/soft tissues: No aggressive appearing bone lesions are seen ABDOMEN AND PELVIS: Hepatobiliary: Small amount of pneumobilia is present. Several tiny cortical hypodensities along th e medial surface right lobe the liver appear unchanged. Spleen: Negative. Pancreas: There are postsurgical changes from a Whipple procedure. The body and tail the pancreas a ppears severely atrophic.. The previously noted soft tissue density process in the previous location of the pancreatic head appears now to represent bowel which is filled with oral contrast. Adrenals: Thickening the adrenal glands again noted Kidneys ureters and bladder : Tiny hypodensity upper pole of the right kidney has remained stable lik benedict representing a cyst Genitalia: Prostate gland is mildly enlarged impinging upon the floor the urinary bladder GI: Again are postoperative changes from a Whipple procedure.. Anastomotic staple line is noted in the sigmoid colon. Vessels/spaces/nodes: Shotty retroperitoneal lymph nodes appear similar to the prior study. There a re extensive vascular calcination occasions throughout the chest abdomen and pelvis. Bones/soft tissues: No aggressive appearing bone lesions are seen Additional findings: None pertinent. IMPRESSION: Previously noted three pulmonary nodules the left upper lobe have remained stable There is a small volume of pulmonary emboli in the segmental and subsegmental arterial branches to th e right upper lobe. Right hilar lymph node remains stable. Post surgical changes from a Whipple procedure. Previously noted soft tissue density process in the previous location of the pancreatic head now appears to represent bowel which is filled with oral con trast Additional chronic findings as described Results were called to Marla BREAUX at the cancer Center at 06/15/2018 4:08 PM. Report Dictated By: Yazmin Newman MD at 06/15/2018 3:11 PM Report E-Signed By: Yazmin Newman MD at 06/15/2018 4:18 PM WSN:[email or web address]
[~2018-06-17 10:52] MED LIST changes: +APIX5TAB4 PO; -GADOBENATE 529MG/1ML 15ML VIAL IVP ONE; +HEPARIN FLSH (PORT) 500 UN/5ML IVP PRN; +IOPAMIDOL 76% 75 ML INFUS BTL 75 ML ONE; -NS(*) 0.9% 50 ML BAG 50 ML ONE
[2018-06-17 11:06] VITALS: BP 133/78
--- NOTE | 2018-06-17 20:56 | ONCOLOGY FOLLOW UP NOTE ---
EVENT DATE: June 17, 2018 REASON FOR FOLLOWUP 1. Stage II pancreatic adenocarcinoma, status post Whipple and completion of adjuvant gemcitabine chemotherapy. 2. Pulmonary embolism. INTERIM HISTORY Dean returns to clinic for a followup visit today. He is accompanied by his . In general, he has been feeling pretty well. He reports no significant shortness of breath or chest pain. He reports no productive cough. He has had no lightheadedness. His appetite has been fair, and his weight has been pretty stable. He continues to use pancreatic enzymes. He reports no severe diarrhea. He has had no new urinary symptoms, but he does report urinary frequency. He had a recent followup CT scan performed, and he and his are here to discuss the results. REVIEW OF SYSTEMS Otherwise negative, and all systems were reviewed. ONCOLOGY HISTORY Stage IIB pancreatic adenocarcinoma. a. Initial presentation with several months of progressive weight loss, fatigue, and change in stool color. He was noted by his PCP to have scleral icterus. Labs were drawn, revealing elevated bilirubin. CT scan at that time showed concern for a pancreatic mass. He was then referred to Dr. Moody for surgical management. b. May 09, 2017: CT of the abdomen and pelvis revealed 2.7 cm poorly defined mid pancreatic head mass, marked dilatation of bile ducts and main pancreatic duct. No CT evidence of vascular encasement or metastatic disease. c. May 09, 2017: Patient undergoes ERCP, sphincterotomy, and bilateral stent placement. Bile duct biopsy performed at that time showed no evidence of malignancy. d. May 10, 2017: CA19-9 = 445. e. May 10, 2017: CT chest shows calcified granuloma in lingula, as well as an adjacent small cluster of micronodular densities up to 5 mm, felt to be inflammatory. There was no definitive evidence of metastatic disease. f. May 14, 2017: Patient undergoes Whipple procedure and port placement. 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 There was invasion of peripancreatic soft tissues at multiple foci, but margins were negative. Perineural invasion was present, but no lymphovascular invasion was noted. Five of 37 lymph nodes were positive for metastatic disease. g. May 02, 2017: Patient is noted to have elevated white blood cell count and abnormal liver function tests. h. June 05, 2017, CT chest, abdomen, and pelvis: Postsurgical changes from Whipple procedure. Anastomosis is narrowed. Stomach is very distended with fluid and particulate material. There is some edema of proximal small bowel loops. There appear to be several small filling defects likely representing thrombi in the mid to distal branches of the mesenteric vein. Diffuse hepatic steatosis is present. Three pulmonary nodules in the left upper lobe measuring up to 4 mm. One of these is calcified. Two adjacent noncalcified nodules could represent granulomatous disease. i. June 2017: Initiation of adjuvant gemcitabine chemotherapy. j. December 10, 2017, CT chest, abdomen, and pelvis: Three left lung nodules, likely benign. Absent gallbladder. Heterogeneous areas on the right liver lobe suggesting focal fatty infiltration and/or scarring. Evidence of prior Whipple procedure. Mildly prominent retroperitoneal lymph nodes which may be reactive. k. November 2017, completion of adjuvant gemcitabine chemotherapy. l. March 06, 2018, CT chest, abdomen, and pelvis: Three left-sided lung nodules are stable. Postsurgical changes from Whipple. Lobular soft tissue density material seen in previous location of pancreatic head extending anterolaterally towards liver. This could represent bowel loops from the patient's Whipple procedure; however, the bowel is not well opacified in this location. Dedicated CT or MR through the pancreas has been recommended. In addition, there was concern for a fluid-filled appendix that was mildly dilated at 8.4 mm. There was no surrounding inflammatory change seen. Mild appendicitis was not totally excluded. m. 06/15/2018, CT chest, abdomen, and pelvis: Previously noted three pulmonary nodules in left upper lobe are stable; small volume of pulmonary emboli in segmental and subsegmental arterial branches to the right upper lobe; right hilar lymph node remains stable; postsurgical changes from Whipple procedure. Previously noted soft tissue density process in previous location of pancreatic head now appears to represent bowel which is filled with oral contrast. PAST MEDICAL HISTORY 1. Benign prostatic hyperplasia. 2. Hypertension. PAST SURGICAL HISTORY 1. Whipple procedure, as above. 2. ERCP with stent placement, as above. 3. History of colon surgery. 4. History of eye surgery. 5. History of wisdom tooth extraction. SOCIAL HISTORY The patient is a never smoker. He rarely drinks alcohol. There is no history of illicit drug use. FAMILY HISTORY Noncontributory. CURRENT MEDICATIONS 1. Tylenol p.r.n. 2. Mirtazapine p.r.n. 3. Creon with meals and snacks. 4. Zofran p.r.n. 5. Docusate p.r.n. 6. Oxycodone/acetaminophen p.r.n. 7. Calcium supplement. 8. Pantoprazole. 9. Multivitamin. 10. Finasteride. 11. Vitamin D2 supplement. ALLERGIES No known drug allergies. VITAL SIGNS Temperature is 97, blood pressure 133/78, heart rate is 53, respirations 16, oxygen saturation is 97% on room air. Weight is 61.1 kg. PHYSICAL EXAMINATION GENERAL: Patient is alert and oriented times three, in no apparent distress, sitting in the exam room chair. He is thin, but is interactive and quite pleasant. HEENT: Anicteric sclerae. NEUROLOGIC: Grossly nonfocal, and his gait is normal. EXTREMITIES: No edema, clubbing, or cyanosis. There is no erythema or tenderness to palpation. SKIN: No concerning rash or lesion. LABORATORY STUDIES AND IMAGING Reviewed per the [facility] record. Please see Oncology History above. ASSESSMENT AND PLAN 1. Stage II pancreatic adenocarcinoma. Dean continues to do well status post Whipple and adjuvant gemcitabine. As discussed, there are no findings on his followup CT scan to suggest recurrence of his pancreatic cancer. He was pleased to hear this. I have recommended that he have a repeat CT scan of the chest, abdomen, and pelvis in three months as well as repeat labs to include CBC, CMP, and CA19-9. 2. Pulmonary embolism. We spent a good deal of time discussing this today. He is basically asymptomatic, and this was an incidental finding. The staff here in the clinic is working to get him Eliquis. We discussed the use of this direct oral anticoagulant. He understands the inherent risk of bleeding with its use. He does have a history of remote deep venous thrombosis requiring anticoagulation with Coumadin. Given his new pulmonary embolism, his recent history of pancreatic cancer, and that this is recurrent thrombosis, I do think that indefinite anticoagulation is indicated. He was somewhat disappointed to hear this, but he understands the rationale for this recommendation. We discussed other options if Eliquis is not affordable. These would include edoxaban, Pradaxa, Xarelto, Lovenox, and Coumadin. I spent a total of 30 minutes face to face with the patient and his today, and 25 minutes of this were spent in direct counseling and coordination of care. BOUCHRA
== END 2018-09-13 ==
LOC: ONC 10:52
PROVIDERS: ATTEND Internal Medicine Medical Oncology
DX: C25.9 Malignant neoplasm of pancreas, unspecified (principal); R91.8 Other nonspecific abnormal finding of lung field; I26.99 Other pulmonary embolism without acute cor pulmonale; Z86.711 Personal history of pulmonary embolism
CPT/HCPCS: 36591; 71270; 74178; 85025; 86301; G0463; J1642; Q9967; 82040; 82247; 82310; 82374; 82435; 82565; 82947; 84075; 84132; 84155; 84295; 84450; 84460; 84520; 99212

== ENCOUNTER 2018-12-09 15:15 | Outpatient (RCR) | payer MEDICARE ==
[2018-09-16 08:47] LABS: PLATELET COUNT, AUTOMATED 223 K/uL (150-450)
[2018-09-16 09:00] VITALS: BP 118/74
[2018-09-16] MEDS: HEPARIN FLSH (PORT) 500 UN/5ML IVP PRN (09:41)
--- NOTE | 2018-09-16 14:07 | RADIOLOGY IMAGING REPORT ---
FACILITY: [facility] [place] PATIENT NAME: Dean Spears : 1940 MR: [id number] V: [id number] EXAM DATE: ORDERING PHYSICIAN: NAMAN KAUR TECHNOLOGIST: Location: [facility] Patient: Dean Spears : 1940 Visit/Account:[id number] Date of Sevice: 09/16/2018 CT CHEST ABDOMEN PELVIS W & W/O HISTORY: Pancreatic cancer follow-up ADDITIONAL HISTORY: None. TECHNIQUE: Pre and post administration of IV contrast axial images acquired through the chest abdome n and pelvis during the portal venous phase. Coronal and sagittal reformatting was also performed.Do se Lowering Technique One of the following dose optimization techniques was utilized in the performance of this exam: Autom ated exposure control; adjustment of the mA and/or kV according to the patient's size; or use of an i terative reconstruction technique. Specific details can be referenced in the facility's radiology C T exam operational policy. CONTRAST: 75 mL Isovue-370 COMPARISON: June 15, 2018 FINDINGS: CHEST: Lungs/Pleura: Fibrotic change in the right pulmonary apex remains relatively unchanged. Minimal fib rotic change of the left pulmonary apex likewise appears unchanged mild scarring in the lung bases re jb unchanged the left upper lobe primary nodules measuring up to 6 mm have remained unchanged. As previous seen noted one of these nodules is calcified. Mediastinum/lymph nodes: The 1.4 x 0.8 cm right hilar lymph node remains stable Heart/vessels: Again is an implanted right-sided port with the distal tip in the superior vena cava. At least moderate vascular calcifications are seen throughout the thoracic aorta and branch vessels including the coronary arteries Bones/soft tissues: No aggressive appearing bone lesions are seen ABDOMEN AND PELVIS: Hepatobiliary: Several small cortical hypodensities along the medial surface of the right lobe the l iver appear relatively stable. A small amount of pneumobilia is again noted Spleen: Negative. Pancreas: Again noted are post surgical changes from a Whipple procedure. The body and tail the foster creas appears severely atrophic. Adrenals: Mild thickening the adrenal glands appears stable Kidneys ureters and bladder : Negative. Genitalia: Prostate gland is mildly enlarged impinging upon the floor the bladder. GI: Again noted are postsurgical changes from a Whipple procedure. Anastomotic staple line is note d in the sigmoid colon There is mild thickening seen at the hepatic flexure. This may represent spasm although annular lesi on not totally excluded. There is no evidence of bowel obstruction. Vessels/spaces/nodes: Extensive vascular calcifications are seen throughout the chest abdomen pelvis . There are numerous shotty retroperitoneal lymph nodes appearing similar to the prior study Bones/soft tissues: There spondylotic changes of the lumbar spine although no aggressive appearing b one lesions are seen Additional findings: None pertinent. IMPRESSION: Previously noted pulmonary nodules the left upper lobe have remained stable as has the small right hi lar lymph node Postsurgical changes from a Whipple procedure again noted. There is mild thickening at the hepatic flexure. This may represent an area spasm although an annula r lesion is not totally excluded therefore clinical correlation needed Additional chronic findings as described Report Dictated By: Yazmin Newman MD at 09/16/2018 1:28 PM Report E-Signed By: Yazmin Newman MD at 09/16/2018 2:03 PM PATRICIAN:[email or web address]
--- NOTE | 2018-09-28 08:33 | NUR ---
SW spotted the pt when he was walking through the center on his way for imaging and was able to check in about his Eliquis. The pt stated he did not need to start the Eliquis patient assistance program because during open enrollment he found a part D program that was better for this Eliquis cost.
[2018-09-30 09:55] VITALS: BP 130/80
--- NOTE | 2018-09-30 14:28 | ONCOLOGY FOLLOW UP NOTE ---
EVENT DATE: September 30, 2018 DIAGNOSES 1. Stage II pancreatic adenocarcinoma, status post Whipple and completion of adjuvant gemcitabine chemotherapy. 2. Pulmonary embolism, on chronic life-long anticoagulation with Eliquis. CHIEF COMPLAINT Mr. Spears is here today for ongoing oncologic care. He is status post Whipple and has completed adjuvant chemotherapy with gemcitabine. He recently had a repeat CT scan of the chest, abdomen and pelvis in late August 2018. INTERIM HISTORY Mr. Spears returns today for followup visit. He is accompanied by his . He reports feeling well since his last visit. He denies any significant symptoms to include no significant gastrointestinal symptoms or pain, no shortness of breath or chest pain. No productive cough. He continues to use Creon, which is helping his bowels significantly. He reports fair appetite and believes his weight has been stable. He has not had any diarrhea while on his pancreatic enzymes. No urinary symptoms, although he does have urinary frequency, which is largely unchanged. He reports overall stable energy levels. He is hoping to have cataract surgery sometime in the next few months and has seen an ham facer here in [facility], Dr. Siddiqui. He tells me that he will be referred over to another specialist somewhere in [place] for the actual procedure. Of note, he tells me that they did recommend holding his Eliquis for one week. Again, he is not scheduled. Incidentally, this morning prior to his office visit, patient tells me that his was found to have a very low blood glucose of approximately 20 and ambulance did come out to the home. As such, he is keeping an eye on his and she is with him at today's visit. ONCOLOGY HISTORY Stage IIB pancreatic adenocarcinoma. a. Initial presentation with several months of progressive weight loss, fatigue, and change in stool color. He was noted by his PCP to have scleral icterus. Labs were drawn, revealing elevated bilirubin. CT scan at that time showed concern for a pancreatic mass. He was then referred to Dr. Moody for surgical management. b. May 09, 2017: CT of the abdomen and pelvis revealed 2.7 cm poorly defined mid pancreatic head mass, marked dilatation of bile ducts and main pancreatic duct. No CT evidence of vascular encasement or metastatic disease. c. May 09, 2017: Patient undergoes ERCP, sphincterotomy, and bilateral stent placement. Bile duct biopsy performed at that time showed no evidence of malignancy. d. May 10, 2017: CA19-9 = 445. e. May 10, 2017: CT chest shows calcified granuloma in lingula, as well as an adjacent small cluster of micronodular densities up to 5 mm, felt to be inflammatory. There was no definitive evidence of metastatic disease. f. May 14, 2017: Patient undergoes Whipple procedure and port placement. 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 There was invasion of peripancreatic soft tissues at multiple foci, but margins were negative. Perineural invasion was present, but no lymphovascular invasion was noted. Five of 37 lymph nodes were positive for metastatic disease. g. May 02, 2017: Patient is noted to have elevated white blood cell count and abnormal liver function tests. h. June 05, 2017, CT chest, abdomen, and pelvis: Postsurgical changes from Whipple procedure. Anastomosis is narrowed. Stomach is very distended with fluid and particulate material. There is some edema of proximal small bowel loops. There appear to be several small filling defects likely representing thrombi in the mid to distal branches of the mesenteric vein. Diffuse hepatic steatosis is present. Three pulmonary nodules in the left upper lobe measuring up to 4 mm. One of these is calcified. Two adjacent noncalcified nodules could represent granulomatous disease. i. June 2017: Initiation of adjuvant gemcitabine chemotherapy. j. December 10, 2017, CT chest, abdomen, and pelvis: Three left lung nodules, likely benign. Absent gallbladder. Heterogeneous areas on the right liver lobe suggesting focal fatty infiltration and/or scarring. Evidence of prior Whipple procedure. Mildly prominent retroperitoneal lymph nodes which may be reactive. k. November 2017, completion of adjuvant gemcitabine chemotherapy. l. March 06, 2018, CT chest, abdomen, and pelvis: Three left-sided lung nodules are stable. Postsurgical changes from Whipple. Lobular soft tissue density material seen in previous location of pancreatic head extending anterolaterally towards liver. This could represent bowel loops from the patient's Whipple procedure; however, the bowel is not well opacified in this location. Dedicated CT or MR through the pancreas has been recommended. In addition, there was concern for a fluid-filled appendix that was mildly dilated at 8.4 mm. There was no surrounding inflammatory change seen. Mild appendicitis was not totally excluded. m. June 15, 2018: CT chest, abdomen, and pelvis: Previously noted three pulmonary nodules in left upper lobe are stable; small volume of pulmonary emboli in segmental and subsegmental arterial branches to the right upper lobe; right hilar lymph node remains stable; postsurgical changes from Whipple procedure. Previously noted soft tissue density process in previous location of pancreatic head now appears to represent bowel which is filled with oral contrast. n. MRI abdomen with and without contrast on March 12, 2018: Status post Whipple pancreatic head resection. No recurrent mass within the resection bed. Geographic marginated peripheral enhancing lesion in the right lobe of the liver. Most of the imaging features would favor this as a benign perfusional variation, although there does appear to be some diffusion-weighted signal associated with it. Metastasis is felt less likely but this should be followed. o. CT chest, abdomen and pelvis on September 16, 2018: Previously noted pulmonary nodules in the left upper lobe have remained stable as has a small right hilar lymph node. Postsurgical changes from a Whipple procedure again noted. There is mild thickening at the hepatic flexure. This may represent an area of spasm, although an annular lesion is not totally excluded. Therefore, clinical correlation needed. PAST MEDICAL HISTORY 1. Benign prostatic hyperplasia. 2. Hypertension. PAST SURGICAL HISTORY 1. Whipple procedure, as above. 2. ERCP with stent placement, as above. 3. History of colon surgery. 4. History of eye surgery. 5. History of wisdom tooth extraction. SOCIAL HISTORY The patient is a never smoker. He rarely drinks alcohol. There is no history of illicit drug use. FAMILY HISTORY Noncontributory. ALLERGIES No known drug allergies. CURRENT MEDICATIONS 1. Tylenol p.r.n. approximately two times per week. 2. CoQ10 daily. 3. Creon with meals and snacks. 4. Calcium supplement. 5. Pantoprazole. 6. Multivitamin. 7. Finasteride. 8. Vitamin D supplement. REVIEW OF SYSTEMS CONSTITUTIONAL: Patient denies any fevers, chills, night sweats or appetite changes. He reports he is eating and drinking fluids well and believes his weight is stable. EYES: No blurry vision, although patient does report that he would like to have cataract surgery in the next couple of months. He has seen an land acquisition specialist here in [facility], Dr. Siddiqui. Patient states that he will then be referred to another specialist in [place] for actual procedure. He is not scheduled. Incidentally, patient tells me that he was told that his anticoagulation will need to be held for one week prior to cataract surgery. CARDIOVASCULAR: He denies any chest pain, palpitations, syncope or presyncope. RESPIRATORY: He denies any shortness of breath or significant cough. No hemoptysis or pleuritic chest pain. GI: No abdominal pain. Patient reports that he occasionally has a very fleeting twinge sensation in his mid abdomen to right upper quadrant which tends to move and is extremely fleeting. He reports this is maybe a twinge and has noticed this ever since he has had surgery. He tells me this never lasts more than 45 to 60 seconds and might only occur one to two times per week at maximum. No nausea or vomiting. No constipation or significant diarrhea. He remains on his pancreatic enzymes, which help control his diarrhea. If he forgets his Creon, which only happens occasionally per patient, then he may have symptoms but otherwise this is all stable. He reports good appetite. MUSCULOSKELETAL; No focal areas of pain. He reports only his "normal, age- related pains". NEURO: He denies any headache or paresthesias. PSYCH: He denies any severe depression, severe anxiety, suicidal or homicidal ideation. The remainder of a 12-point review of systems was performed today and is otherwise negative other than what is stated above and immediately following. PHYSICAL EXAMINATION VITAL SIGNS: No weight obtained today. Temperature 96.5 degrees F, P 66, R 16, BP 130/80, oxygen saturation 91% room air. GENERAL: In general, this is a pleasant, 78-year old gentleman who appears to be in no acute distress. HEAD: Normocephalic, atraumatic. HEENT; History of bilateral cataracts. Sclerae are anicteric. No oral ulcerations. NECK: Supple. No lymphadenopathy. No JVD. CARDIAC: Regular rate and rhythm. No murmurs. LUNGS: Clear breath sounds to auscultation bilaterally. Chest expansion is overall symmetrical. Respiratory effort is normal. ABDOMEN: Soft, nondistended, nontender. No organomegaly. No rebound or guarding. MUSCULOSKELETAL: Gait is steady. NEURO: Patient is awake, alert and oriented x3. Grossly nonfocal. PSYCH: Mood and affect are appropriate and within normal limits. EXTREMITIES: No edema. No clubbing or cyanosis. DERM: No rash or suspicious lesions to include no petechiae or purpura. LABORATORY STUDIES CBC on September 16, 2018: WBC 5.0, ANC 3.7, hemoglobin 15.1, hematocrit 46.2%, platelets 223,000. CMP on the same date of service: Sodium normal at 141, potassium normal at 4.1. BUN and creatinine normal with serum creatinine of 0.80, glucose normal at 87, calcium normal at 8.6, total bilirubin normal at 0.8. AST mildly elevated at 44. This is mildly elevated from previous 42 on June 15, 2018. ALT normal at 45. Alkaline phosphatase normal at 103. Total protein and albumin normal with albumin 4.0. CA 19-9 normal at 22. IMAG[address] CT chest, abdomen and pelvis with and without contrast at [facility] on September 16, 2018: 1. Previously noted pulmonary nodules of left upper lobe have remained stable as has the small right hilar lymph node. 2. Post-surgical changes from a Whipple procedure again noted. 3. There is mild thickening at the hepatic flexure. This may represent an area of spasm, although an annular lesion is not totally excluded. Therefore, clinical correlation needed. 4. Comparison was made to CT from June 15, 2018. ASSESSMENT AND PLAN This is a pleasant 78-year old gentleman with history of stage II pancreatic adenocarcinoma. He is sp Whipple and adjuvant chemotherapy with gemcitabine. He has had several imaging studies post completion of treatment which do not suggest any recurrence of his pancreatic cancer. He did have an MRI in February [address] scan which potentially showed an area in the pancreas as well as a fluid-filled appendix. MRI was recommended and MRI did not reveal any evidence of recurrence in the pancreas or any other abnormalities. He has recently had a re-staging CT scan for ongoing evaluation. Lastly, he does have a history of pulmonary embolism and remains on Eliquis b.i.d. He is tolerating this well and denies any bleeding complications. 1. Stage II pancreatic adenocarcinoma: Patient is doing well status post his Whipple procedure and completion of adjuvant chemotherapy with gemcitabine. He recently had a repeat CT chest, abdomen and pelvis done just a few weeks ago on September 16, 2018, and results did not reveal any evidence of disease recurrence. Known pulmonary nodules and hilar lymph node is all stable. There is some mild wall thickening seen at the hepatic flexure, which may be spasm, and currently patient is asymptomatic. Our plan is to continue to watch this. 2. Imaging: I have explained to the patient that we would like for him to repeat another CT scan of the chest, abdomen and pelvis in three months' time. 3. Labs: Patient had recent labs done on September 16, 2018, as noted above. CA 19-9 at that time was normal at 22. 4. Pulmonary embolism. Again, discussed that patient will be on life-long anticoagulation secondary to his PEs. 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 He is tolerating Eliquis b.i.d. quite well. We did discuss this at length today and he is well aware that this will be life-long. I did discuss affordability with him and he tells me that this is much more affordable on his new plan and he wishes to remain on Eliquis. Currently, he has five months of refills left and he is aware that all he simply needs to do is call our office or his pharmacy and we can certainly refill this in the future. Again, reviewed bleeding precautions. 5. Health maintenance: Patient inquired about routine semi-annual dental cleaning and I explained to him that he may certainly have routine dental cleaning in the future. If anything invasive is planned, he should alert us, although he is not on any medications that would indicate other than again his anticoagulation. 6. Cataract surgery: Patient has seen Dr. Siddiqui and is not scheduled but hopes to do this in approximately two or three months. We discussed this at length today. He reports that he was told his anticoagulation would need to be held for one week prior to cataract surgery. I am unsure if this was actually stated as I do not have these records. However, I explained to patient that typically cataract surgery has minimal risk for bleeding and if it needs to be held, 24 hours is appropriate. I do not think that holding his anticoagulation for one week is necessary. I will have our office contact his land acquisition specialist to inquire. 7. Patient will return to the clinic in three months for followup. He will have repeat labs prior to that visit with CBC, CMP and CA 19-9. He will also have repeat imaging with CT chest, abdomen and pelvis with contrast prior to followup in three months. 8. I believe all of the patient's questions were answered today. I spent a total of 30 minutes [id number] with the patient and today and 25 minutes of this were spent in direct counseling and coordination of care. BOUCHRA
[2018-10-28 08:57] VITALS: BP 125/85
[2018-10-28] MEDS: HEPARIN FLSH (PORT) 500 UN/5ML IVP PRN (08:57)
[2018-12-09] MEDS: HEPARIN FLSH (PORT) 500 UN/5ML IVP PRN (15:10)
[~2018-12-09 15:15] MED LIST changes: +CYAN1TAB PO; -DIPH0.5D12 IM; +DIPH0.5S2 IM; -HEPARIN FLSH (PORT) 500 UN/5ML IVP PRN; +IOPAMIDOL 76% 100 ML INFUS BTL 100 ML ONE; -IOPAMIDOL 76% 75 ML INFUS BTL 75 ML ONE; +NS(*) 0.9% 250 ML BAG 250 ML IVPB PRN; +UBID200C21 PO
[2018-12-09 15:21] VITALS: BP 121/73
== END 2018-12-14 ==
LOC: SPU 15:15
PROVIDERS: ATTEND Internal Medicine Medical Oncology
DX: Z85.07 Personal history of malignant neoplasm of pancreas (principal); Z86.711 Personal history of pulmonary embolism; Z79.01 Long term (current) use of anticoagulants; Z92.21 Personal history of antineoplastic chemotherapy
CPT/HCPCS: 36591; 71270; 74178; 85025; 86301; 96523; G0463; J1642; Q9967; 82040; 82247; 82310; 82374; 82435; 82565; 82947; 84075; 84132; 84155; 84295; 84450; 84460; 84520; 99212

== ENCOUNTER → 2019-01-07 | Outpatient (CLI) | payer MEDICARE ==
[~2019-01-07] MED LIST changes: -ALTEPLASE RECOMB 2 MG VIAL IVP PRN; -DEXTROSE 5%(*) 100 ML BAG 100 ML IVPB PRN; -LIDOCAINE/SOD BICARB 8.4% SYR ID PRN; -NS(*) 0.9% 100 ML BAG 100 ML IVPB PRN; -NS(*) 0.9% 250 ML BAG 250 ML IVPB PRN; -NS(*) 0.9% 500 ML BAG 500 ML IV PRN; -WATER FOR INJ,STERILE 20 ML IVP PRN
--- NOTE | 2019-01-07 13:05 | RADIOLOGY IMAGING REPORT ---
FACILITY: [facility] PATIENT NAME: Dean Spears : 1940 MR: [id number] V: [id number] EXAM DATE: ORDERING PHYSICIAN: NAMAN KAUR TECHNOLOGIST: Location: [facility] Patient: Dean Spears : 1940 Visit/Account:[id number] Date of Sevice: 01/07/2019 EXAMINATION: CT Chest Without and With Contrast CT Abdomen Without and With Contrast CT Pelvis Without and With Contrast HISTORY: History of pancreatic CA TECHNIQUE: Spiral scan was obtained through the chest, abdomen and pelvis before and during injecti on of nonionic iodinated intravenous contrast. Contrast: 75 mL of IV Isovue 370. One of the following dose optimization techniques was utilized in the performance of this exam: Autom ated exposure control; adjustment of the mA and/or kV according to the patient's size; or use of an i terative reconstruction technique. Specific details can be referenced in the facility's radiology C T exam operational policy. COMPARISON STUDIES: Comparison made to previous study of 09/16/2018. FINDINGS: CHEST: Lungs / pleura: Lung dumont are well-aerated. A grouping of three nodules in the inferior anterior a spect of the left upper lobe are reidentified and unchanged in appearance. One of these nodules is c alcified. There is apical pleural scarring changes in both upper lung dumont are stable. Mediastinum / emile: negative Heart / pericardium: negative Vessels: negative Musculoskeletal / Body wall: negative Lymph node assessment: No pathologic lymphadenopathy noted. Stable appearing 1.3 cm right hilar lymp h node. Stable appearing 1.6 x 1.0 cm left hilar lymph node. Lower neck: negative ABDOMEN AND PELVIS: Liver / biliary: No liver lesions noted. Pneumobilia in the left lobe of the liver. Pancreas: Atrophy of the remaining body and tail of the pancreas. Whipple procedure noted. No zeynep dence of any obvious recurrence of the pancreatic CTA in the pancreatic bed. Spleen: negative Adrenal glands: "Plump" left adrenal gland. No adrenal metastases noted. Kidneys / retroperitoneum: Homogenous nephrograms bilaterally. Pelvic structures: negative Bowel / peritoneum / mesenteries: No colonic mass lesion or inflammation. Enteric anastomosis in the sigmoid colon. Vessels: negative Musculoskeletal / Body wall: Stable appearing cystic changes within the right iliac bone. No concern ing osteolytic or blastic lesions are seen. Lymph node assessment: negative IMPRESSION: 4 1. Status post Whipple procedure with no evidence of recurrence of the pancreatic cancer. 2. Sta ble appearing left lung nodules. Report Dictated By: Dennis Greco MD at 01/07/2019 11:50 AM Report E-Signed By: Dennis Greco MD at 01/07/2019 12:59 PM WSN:[id number]
== END ==
LOC: CT 00:48
PROVIDERS: ATTEND Internal Medicine Medical Oncology
DX: R91.8 Other nonspecific abnormal finding of lung field (principal)
CPT/HCPCS: 71270; 74178; Q9967